=== PATIENT | male | born 1950 | race Caucasian/White ===

== ENCOUNTER 2016-09-28 14:10 | Inpatient (IN) | payer MEDICARE, OTHER ==
[2016-09-28] VITALS (7 sets, daily range): BP systolic 133–177; BP diastolic 61–78; PULSE 81–98; RESP 14–18; TEMP 97.1–98.8; O2SAT 96–99
[~2016-09-28] VITALS: Ht 177.8 cm; Wt 70.5 kg
[~2016-09-28 14:10] MED LIST: COLA100C3 PO; SPIR100T PO; TRAM50TA PO; ZOFR4TAB PO
[2016-09-28] MEDS ORDERED: SODIUM CHLORIDE 0.9% FLUSH 5 ML FLUSH IVF PRN (14:30)
[2016-09-28 15:14] LABS: AUTOMATED NEUTROPHIL # 3.8 TH/MM3 (1.8-7.7); BASOPHIL % 0.8 % (0.0-2.0); EOSINOPHIL # 0.1 TH/MM3 (0-0.4); EOSINOPHIL % 2.3 % (0.0-4.0); LYMPH % 22.1 % (9.0-44.0); LYMPHOCYTE # 1.3 TH/MM3 (1.0-4.8); MEAN CELL VOLUME 89.7 FL (80.0-100.0); MEAN CORPUSCULAR HEMOGLOBIN 29.6 PG (27.0-34.0); MEAN CORPUSCULAR HGB CONC 33.1 % (32.0-36.0); MONO % 7.6 % (0.0-8.0); NEUT % 67.2 % (16.0-70.0); PLATELET COUNT 158 TH/MM3 (150-450); RED BLOOD COUNT 2.02 MIL/MM3 (4.50-5.90); RED CELL DISTRIBUTION WIDTH 16.6 % (11.6-17.2); WHITE BLOOD COUNT 5.7 TH/MM3 (4.0-11.0)
[2016-09-28 15:23] LABS: HEMO FLAGS DIFF FINAL
[2016-09-28 15:28] LABS: APTT (PATIENT) 25.7 SEC (24.3-30.1); INTERNATIONAL NORMALIZED RATIO 1.2 RATIO; PROTHROMBIN TIME - PATIENT 13.8 SEC (9.8-11.6)
[2016-09-28 15:29] LABS: HEMATOCRIT 18.1 % (39.0-51.0)
[2016-09-28] MEDS ORDERED: SODIUM CHLOR 0.9% 250 ML INJ 250 ML IV ONE (15:30)
[2016-09-28 15:35] LABS: ALT (GPT) 37 U/L (12-78); ANION GAP 8 MEQ/L (5-15); AST (GOT) 55 U/L (15-37); BICARBONATE 20.1 MEQ/L (21.0-32.0); BLOOD UREA NITROGEN 22 MG/DL (7-18); CHLORIDE 109 MEQ/L (98-107); GLOMERULAR FILTRATION RATE 61 ML/MIN (>89); POTASSIUM 4.3 MEQ/L (3.5-5.1); SODIUM (NA) 137 MEQ/L (136-145)
[2016-09-28 15:39] LABS: ALKALINE PHOSPHATASE 73 U/L (45-117); TOTAL BILIRUBIN ADULT 1.6 MG/DL (0.2-1.0)
[2016-09-28 17:54] LABS: BLOOD, URINE NEG (NEG); COMMENT (UR) CULT NOT INDICATED; CULTURE IF INDICATED CULT NOT INDICATED; GLUCOSE,URINE NEG (NEG); KETONE, URINE NEG (NEG); MUCUS URINE FEW /lpf (OCC); NITRITE,URINE NEG (NEG); PH, URINE 6.5 (5.0-8.5); URINE COLOR YELLOW (YELLW/STRAW)
[2016-09-28] MEDS ORDERED: NALOXONE HCL 0.4 MG/ML AMP IV PRN (19:45)
[2016-09-28] MEDS ORDERED: SODIUM CHLORIDE 0.9% FLUSH 5 ML FLUSH FLUSH PRN (19:45)
--- NOTE | 2016-09-28 19:45 | PD ---
HPI Chief Complaint: Medical Clearance Time Seen by Provider: 14:25 Travel History International Travel<30 days: No Contact w/Intl Traveler<30days: No Traveled to known affect area: No History of Present Illness HPI Patient is a 66-year-old male sent by the [place] for abnormal labs. The patient states he has a history of liver disease and has had to have endoscopy before to cauterize some bleeding. Patient denies any history of varices however. Patient states she's just been feeling more fatigued and went to the [place] for lab work and they called him saying his hemoglobin was 6.8. He denies any diarrhea or dark stools blood in the stools nausea or vomiting hematemesis abdominal pain. Denies any fevers. PFSH Past Medical History Anemia: Yes Asthma: No Heart Rhythm Problems: No Cancer: No Cardiovascular Problems: Yes High Cholesterol: No Chest Pain: No Congestive Heart Failure: No COPD: No Endocrine: No Gastrointestinal Disorders: Yes GERD: Yes Genitourinary: No Hepatitis: Yes (HEPATITIS C) Hiatal Hernia: Yes Hypertension: Yes Immune Disorder: No Implanted Vascular Access Dvce: No Musculoskeletal: No Neurologic: No Psychiatric: No Reproductive: No Respiratory: Yes Sleep Apnea: No Ulcer: Yes (peptic) Past Surgical History Eye Surgery: Yes (bilateral cataracts removed) Other Surgery: Yes (endoscopy with biopsy) Social History Alcohol Use: No Tobacco Use: No Substance Use: No Allergies-Medications (Allergen,Severity, Reaction): Coded Allergies: No Known Allergies (Unverified , 09/28/16) Reported Meds & Prescriptions Reported Meds & Active Scripts Active Tramadol (Tramadol HCl) 50 Mg Tab 50 Mg PO Q6H PRN Colace (Docusate Sodium) 100 Mg Cap 100 Mg PO BID 5 Days Review of Systems Except as stated in HPI: all other systems reviewed are Neg Physical Exam Narrative GENERAL: Well-developed well-nourished no apparent distress. SKIN: Warm and dry. HEAD: Atraumatic. Normocephalic. EYES: Pupils equal and round. No scleral icterus. No injection or drainage. ENT: No nasal bleeding or discharge. Mucous membranes pink and moist. NECK: Trachea midline. No JVD. CARDIOVASCULAR: Regular rate and rhythm. No murmur appreciated. RESPIRATORY: No accessory muscle use. Clear to auscultation. Breath sounds equal bilaterally. GASTROINTESTINAL: Abdomen soft, non-tender, nondistended. Hepatic and splenic margins not palpable. MUSCULOSKELETAL: No obvious deformities. No clubbing. No cyanosis. No edema. NEUROLOGICAL: Awake and alert. No obvious cranial nerve deficits. Motor grossly within normal limits. Normal speech. PSYCHIATRIC: Appropriate mood and affect; insight and judgment normal. Data Data Last Documented VS Vital Signs Date Time Temp Pulse Resp B/P Pulse Ox O2 Delivery O2 Flow Rate FiO2 09/28/16 15:28 82 18 169/78 97 Room Air 09/28/16 15:28 98.8 Orders Complete Blood Count With Diff (09/28/16 14:30) Comprehensive Metabolic Panel (09/28/16 14:30) Lipase (09/28/16 14:30) Ammonia (09/28/16 14:30) Prothrombin Time / Inr (Pt) (09/28/16 14:30) Act Partial Throm Time (Ptt) (09/28/16 14:30) Urinalysis - C+S If Indicated (09/28/16 14:30) Type And Screen (09/28/16 14:30) Ecg Monitoring (09/28/16 14:30) Iv Access Insert/Monitor (09/28/16 14:30) Oximetry (09/28/16 14:30) Sodium Chloride 0.9% Flush (Ns Flush) (09/28/16 14:30) B-Type Natriuretic Peptide (09/28/16 14:30) Electrocardiogram (09/28/16 ) Troponin I (09/28/16 14:30) Red Blood Cells (Rbc) (09/28/16 15:30) Blood Product Administration .UPON TRANSFUSION (09/28/16 15:30) Sodium Chlor 0.9% 250 Ml Inj (Ns 250 Ml (09/28/16 15:30) Admit Order (Ed Use Only) (09/28/16 ) Labs Laboratory Tests Test 09/28/16 09/28/16 09/28/16 15:00 15:36 16:30 White Blood Count 5.7 TH/MM3 Red Blood Count 2.02 MIL/MM3 Hemoglobin 6.0 GM/DL Hematocrit 18.1 % Mean Corpuscular Volume 89.7 FL Mean Corpuscular Hemoglobin 29.6 PG Mean Corpuscular Hemoglobin 33.1 % Concent Red Cell Distribution Width 16.6 % Platelet Count 158 TH/MM3 Mean Platelet Volume 6.9 FL Neutrophils (%) (Auto) 67.2 % Lymphocytes (%) (Auto) 22.1 % Monocytes (%) (Auto) 7.6 % Eosinophils (%) (Auto) 2.3 % Basophils (%) (Auto) 0.8 % Neutrophils # (Auto) 3.8 TH/MM3 Lymphocytes # (Auto) 1.3 TH/MM3 Monocytes # (Auto) 0.4 TH/MM3 Eosinophils # (Auto) 0.1 TH/MM3 Basophils # (Auto) 0.0 TH/MM3 CBC Comment DIFF FINAL Differential Comment Prothrombin Time 13.8 SEC Prothromb Time International 1.2 RATIO Ratio Activated Partial 25.7 SEC Thromboplast Time Sodium Level 137 MEQ/L Potassium Level 4.3 MEQ/L Chloride Level 109 MEQ/L Carbon Dioxide Level 20.1 MEQ/L Anion Gap 8 MEQ/L Blood Urea Nitrogen 22 MG/DL Creatinine 1.19 MG/DL Estimat Glomerular Filtration 61 ML/MIN Rate Random Glucose 113 MG/DL Calcium Level 8.4 MG/DL Total Bilirubin 1.6 MG/DL Aspartate Amino Transf 55 U/L (AST/SGOT) Alanine Aminotransferase 37 U/L (ALT/SGPT) Alkaline Phosphatase 73 U/L Troponin I LESS THAN 0.02 NG/ML B-Type Natriuretic Peptide 56 PG/ML Total Protein 6.9 GM/DL Albumin 2.8 GM/DL Lipase 170 U/L Blood Type O POSITIVE Antibody Screen NEGATIVE Crossmatch Leukocyte-Reduced Red Blood Cells Blood Bank Comment Ammonia LESS THAN 10 MCMOL/L MDM Medical Decision Making Medical Screen Exam Complete: Yes Emergency Medical Condition: Yes Differential Diagnosis Anemia, GI bleeding, anemia of chronic disease, electrolyte abnormality, liver disease. Narrative Course Patient was roomed in the emergency department, he appears well and in no apparent distress. Repeat labs sodium level is 6.0. Patient has noticed for 2 units of RBCs. Patient appears well in no apparent distress no indication of upper GI bleeding. Fecal occult is negative and no obvious blood or melena. Patient is stable for the floor at this time. Discussed with the hospitalist for admission. Diagnosis Primary Impression: Symptomatic anemia Admitting Information Admitting Physician Requests: Admit Condition: Stable Jacob Neal MD Sep 28, 2016 19:45
[2016-09-28] MEDS ORDERED: PANTOPRAZOLE INJ 80 MG in SODIUM CHLORIDE 0.9% INJ 35 ML IV ONE (21:00)
[2016-09-28] MEDS: SODIUM CHLORIDE 0.9% FLUSH 5 ML FLUSH FLUSH SCH (21:04)
--- NOTE | 2016-09-28 21:10 | HHI.HP ---
HPI Service [facility] Primary [facility] Phys[facility] Admission Diagnosis Anemia Diagnoses: Chief Complaint: fatigue, abnormal labs Travel History International Travel<30 Days: No Contact w/Intl Traveler <30 Da: No Traveled to Known Affected Are: No History of Present Illness History taken from patient and ED physician. 66 y/o with a history of Hep C(completed Harvoni treatment 1 month ago), Cirrhosis, HTN, GERD, PUD, and anemia was sent from the [place] for a low hgb. Patient states for 2 days he has been feeling fatigued and having shortness of breath with exertion. He states he has had these episodes in the past and he has had to receive a blood transfusion and endoscopy. His last endoscopy was 8 months ago outpatient, and he states they cauterized a bleed. He denies any black or bloody stools, nausea, vomiting or chest pain. He states he completed his Hep C treatment one month ago and it is now undetectable. He also states since last admission he has Review of Systems Constitutional: COMPLAINS OF: Fatigue, DENIES: Fever, Chills, Dizziness Respiratory: COMPLAINS OF: Shortness of breath, DENIES: Cough, Sputum production Cardiovascular: DENIES: Chest pain, Palpitations Gastrointestinal: DENIES: Abdominal pain, Black stools, Bloody stools, Constipation, Diarrhea, Nausea, Vomiting Genitourinary: DENIES: Hematuria, Dysuria Musculoskeletal: DENIES: Back pain, Neck pain Integumentary: DENIES: Rash Hematologic/lymphatic: DENIES: Lymphadenopathy Immunologic/allergic: DENIES: Urticaria Neurologic: COMPLAINS OF: Localized weakness, DENIES: Headache Past Family Social History Past Medical History Hep C Cirrhosis HTN GERD PUD Anemia Past Surgical History Bilateral Cataracts Reported Medications Reported Meds & Active Scripts Active Tramadol (Tramadol HCl) 50 Mg Tab 50 Mg PO Q6H PRN Colace (Docusate Sodium) 100 Mg Cap 100 Mg PO BID 5 Days Allergies: Coded Allergies: No Known Allergies (Unverified , 09/28/16) Active Ordered Medications Current Medications Medications (Trade) Dose Ordered Sig/Brooke Route Start Time Stop Time Status Last Admin (NS 250 ml Inj) 250 ml @ 15 mls/hr ONCE ONCE IV 09/28/16 15:30 09/29/16 08:09 09/28/16 18:03 (NS Flush) 2 ml UNSCH PRN FLUSH 09/28/16 19:45 (NS Flush) 2 ml BID FLUSH 09/28/16 21:00 09/28/16 21:04 Naloxone HCl 0.4 mg 0.4 mg UNSCH PRN IV 09/28/16 19:45 (Protonix Inj/NS Inj) 100 ml @ 10 mls/hr Q10H IV 09/28/16 21:00 Physical Exam Vital Signs Vital Signs Date Time Temp Pulse Resp B/P Pulse Ox O2 Delivery O2 Flow Rate FiO2 09/28/16 21:03 88 16 133/61 98 Room Air 09/28/16 19:10 90 16 146/70 96 Room Air 09/28/16 18:35 98.8 81 18 167/76 98 Room Air 09/28/16 18:00 88 18 151/70 96 Room Air 09/28/16 18:00 98.6 88 18 151/70 96 Room Air 09/28/16 15:28 82 18 169/78 97 Room Air 09/28/16 15:28 98.8 90 18 169/78 96 Room Air 09/28/16 15:28 88 18 09/28/16 14:14 98.5 91 14 177/75 99 Room Air Physical Exam GENERAL: This is a well-nourished, well-developed patient, in no apparent distress. SKIN: No rashes, ecchymoses or lesions. Cool and dry. HEAD: Atraumatic. Normocephalic. EYES: Pupils equal round and reactive. ENT: Nose without bleeding, purulent drainage or septal hematoma. Airway patent. NECK: Trachea midline. No JVD CARDIOVASCULAR: Regular rate and rhythm without murmurs, gallops, or rubs. RESPIRATORY: Clear to auscultation. Breath sounds equal bilaterally. No wheezes , rales, or rhonchi. GASTROINTESTINAL: Abdomen soft, non-tender, nondistended. No hepato-splenomegaly , or palpable masses. No guarding. MUSCULOSKELETAL: Extremities without clubbing, cyanosis, or edema. No joint tenderness, effusion, or edema noted. No calf tenderness. NEUROLOGICAL: Awake and alert. Motor and sensory grossly within normal limits. Normal speech. Laboratory Laboratory Tests Test 09/28/16 09/28/16 09/28/16 09/28/16 15:00 15:36 16:30 17:30 White Blood Count 5.7 Red Blood Count 2.02 Hemoglobin 6.0 Hematocrit 18.1 Mean Corpuscular Volume 89.7 Mean Corpuscular Hemoglobin 29.6 Mean Corpuscular Hemoglobin 33.1 Concent Red Cell Distribution Width 16.6 Platelet Count 158 Mean Platelet Volume 6.9 Neutrophils (%) (Auto) 67.2 Lymphocytes (%) (Auto) 22.1 Monocytes (%) (Auto) 7.6 Eosinophils (%) (Auto) 2.3 Basophils (%) (Auto) 0.8 Neutrophils # (Auto) 3.8 Lymphocytes # (Auto) 1.3 Monocytes # (Auto) 0.4 Eosinophils # (Auto) 0.1 Basophils # (Auto) 0.0 CBC Comment DIFF FINAL Differential Comment Prothrombin Time 13.8 Prothromb Time International 1.2 Ratio Activated Partial 25.7 Thromboplast Time Sodium Level 137 Potassium Level 4.3 Chloride Level 109 Carbon Dioxide Level 20.1 Anion Gap 8 Blood Urea Nitrogen 22 Creatinine 1.19 Estimat Glomerular Filtration 61 Rate Random Glucose 113 Calcium Level 8.4 Total Bilirubin 1.6 Aspartate Amino Transf 55 (AST/SGOT) Alanine Aminotransferase 37 (ALT/SGPT) Alkaline Phosphatase 73 Troponin I LESS THAN 0.02 B-Type Natriuretic Peptide 56 Total Protein 6.9 Albumin 2.8 Lipase 170 Blood Type O POSITIVE Antibody Screen NEGATIVE Crossmatch Leukocyte-Reduced Red Blood Cells Blood Bank Comment Ammonia LESS THAN 10 Urine Color YELLOW Urine Turbidity CLEAR Urine pH 6.5 Urine Specific [place] 1.017 Urine Protein NEG Urine Glucose (UA) NEG Urine Ketones NEG Urine Occult Blood NEG Urine Nitrite NEG Urine Bilirubin NEG Urine Urobilinogen LESS THAN 2.0 Urine Leukocyte Esterase NEG Urine RBC LESS THAN 1 Urine WBC LESS THAN 1 Urine Mucus FEW Microscopic Urinalysis Comment CULT NOT INDICATED Result Diagram: 09/28/16 1500 09/28/16 1500 Assessment and Plan Problem List: (1) GI bleed ICD Code: K92.2 Status: Acute Assessment and Plan 66 y/o with a history of Hep C(completed treatment 1 month ago), Cirrhosis, HTN , GERD, PUD, and anemia presented with: GI Bleed Labs: Hgb 6.0 -Transfuse 2 units of PRBCs -Consult GI for recommendations -Protonix drip -Trend CBC Hypertension -Monitor vitals -Will order PRNs if needed DVT prophylaxis: SCDs Written by Sunita HERMOSILLO, acting as scribe for Dr. Boggs on 09/28/16 at 2110. The documentation accurately reflects the work performed [id number] and decisions made by me and the physician Dr Boggs on 09/28/16. The documentation accurately reflects the work performed [id number] by me on at 2110 Discussed Condition With Patient, RN and ED physician Physician Certification 2 Midnight Certification Type: Admission for Inpatient Services Order for Inpatient Services The services are ordered in accordance with Medicare regulations or non- Medicare payer requirements, as applicable. In the case of services not specified as inpatient-only, they are appropriately provided as inpatient services in accordance with the 2-midnight benchmark. Estimated LOS (days): 3 days is the estimated time the patient will need to remain in the hospital, assuming treatment plan goals are met and no additional complications. Post-Hospital Plan: [place] Sunita Disla Sep 28, 2016 21:10 Farrukh Bgogs MD Sep 29, 2016 08:27
[2016-09-28] MEDS: PANTOPRAZOLE INJ 80 MG in SODIUM CHLORIDE 0.9% INJ 100 ML IV SCH (23:09)
[2016-09-29 04:00] VITALS: BP 114/85; PULSE 80; RESP 18; TEMP 97.2; O2SAT 99
[2016-09-29 08:00] VITALS: BP 131/66; PULSE 80; RESP 18; TEMP 98.3; O2SAT 100
[2016-09-29 08:15] LABS: BASOPHIL # 0.1 TH/MM3 (0-0.2); BASOPHIL % 1.2 % (0.0-2.0); EOSINOPHIL # 0.2 TH/MM3 (0-0.4); EOSINOPHIL % 4.1 % (0.0-4.0); HEMATOCRIT 23.9 % (39.0-51.0); HEMO FLAGS DIFF FINAL; LYMPH % 26.4 % (9.0-44.0); LYMPHOCYTE # 1.4 TH/MM3 (1.0-4.8); MEAN CELL VOLUME 87.3 FL (80.0-100.0); MEAN CORPUSCULAR HEMOGLOBIN 29.6 PG (27.0-34.0); MEAN CORPUSCULAR HGB CONC 33.9 % (32.0-36.0); MONO % 11.5 % (0.0-8.0); NEUT % 56.8 % (16.0-70.0); PLATELET COUNT 127 TH/MM3 (150-450); RED BLOOD COUNT 2.74 MIL/MM3 (4.50-5.90); RED CELL DISTRIBUTION WIDTH 15.4 % (11.6-17.2); WHITE BLOOD COUNT 5.2 TH/MM3 (4.0-11.0)
--- NOTE | 2016-09-29 08:31 | PD.CONS ---
HPI History of Present Illness This is a 66 year old male patient with a history of liver cirrhosis and who recently completed a course of Harvoni for his chronic hepatitis C about 1 month ago (states he cleared the virus) and was sent from the [place] for evaluation of low hemoglobin. He has a history of chronic anemia and was evaluated by our service with EGD/colonoscopy (11/28/15) revealed gastritis in the gastric antrum, retroflexed views revealed no abnormalities, mild diverticulosis, retroflex views revealed no abnormalities, and no abnormalities of the rectum. It was recommended that he have a repeat colonoscopy in 5 years. Pathology revealed gastric antral mucosal biopsy with histopathologic features consistent with chemical gastropathy as may be seen with bile reflux, nonsteroidal anti- inflammatory drugs or other drug-induced disease negative for intestinal metaplasia and dysplasia, Nilda stain negative for Helicobacter. He was also seen by Dr. Hansen in the past and it was suspected that his anemia was related to conditions outside of the bone marrow given that his bone marrow biopsy was normal. It was suspected that his significant hypersplenism was preventing his hemoglobin from increasing significantly. He reports that more recently, he has been evaluated at the [place]. He did have some GI bleeding back in March. He was hospitalized at the [facility] in [place] at that time and underwent an EGD and had a "lesion that had to be cauterized." He reports that since that time, he has been getting monthly CBC's and that these have been running 9.8-10.0. This was last checked about 3 weeks ago and was 9.8. He reports that for several days, he has been having shortness of breath with minimal exertion, generalized weakness. He denies any noticeable blood loss. He denies any nausea, vomiting, reflux, heartburn, abdominal pain, diarrhea, melena, or hematochezia. He does report that he has been having constipation since starting Harvoni and that this is controlled with colace and prune juice. He was diagnosed with liver cirrhosis and hepatitis C about 1 year ago and quit drinking 7 months ago. (Patrica Mack) PFSH Past Medical History Chronic hepatitis C, S/P Tx with Harvoni Liver Cirrhosis HTN GERD PUD Chronic Anemia Upper GI bleeding in March Gastritis Diverticulosis Hypersplenism Chronic thrombocytopenia Past Surgical History Bilateral Cataracts Left knee surgery Multiple EGD/Colonoscopy Bone marrow biopsy (Patrica Mack) Coded Allergies: No Known Allergies (Unverified , 09/28/16) Medications Allergies Coded Allergies Type Severity Reaction Last Updated Verified No Known Allergies 09/28/16 No Active Scripts Medications Dose Route/Sig Days Date Category Tramadol (Tramadol HCl) 50 Mg Tab 50 Mg PO Q6H PRN 08/18/16 Rx Colace (Docusate Sodium) 100 Mg Cap 100 Mg PO BID 5 08/18/16 Rx Family History Mother from Alzheimer's late in life Father from Parkinson's in his 80s Social History No tobacco. Last had ETOH 7 months ago. (Patrica Mack) Review of Systems Constitutional: COMPLAINS OF: Fatigue, DENIES: Weight loss, Change in appetite Respiratory: COMPLAINS OF: Shortness of breath, DENIES: Cough Cardiovascular: DENIES: Chest pain Gastrointestinal: COMPLAINS OF: Constipation, DENIES: Abdominal pain, Black stools, Bloody stools, Diarrhea, Nausea, Vomiting, Anorexia, Swelling of Abdomen , Heartburn Integumentary: DENIES: Abnormal pigmentation Hematologic/lymphatic: COMPLAINS OF: Bruising Neurologic: DENIES: Headache Psychiatric: DENIES: Confusion (Patrica Mack) GI Exam Vitals I&O Vital Signs Date Time Temp Pulse Resp B/P Pulse Ox O2 Delivery O2 Flow Rate FiO2 09/29/16 04:00 97.2 80 18 114/85 99 09/28/16 22:00 97.1 98 18 147/72 99 09/28/16 21:03 88 16 133/61 98 Room Air 09/28/16 19:10 90 16 146/70 96 Room Air 09/28/16 18:35 98.8 81 18 167/76 98 Room Air 09/28/16 18:00 88 18 151/70 96 Room Air 09/28/16 18:00 98.6 88 18 151/70 96 Room Air 09/28/16 15:28 82 18 169/78 97 Room Air 09/28/16 15:28 98.8 90 18 169/78 96 Room Air 09/28/16 15:28 88 18 09/28/16 14:14 98.5 91 14 177/75 99 Room Air I/O 09/28/16 09/28/16 09/28/16 09/29/16 09/29/16 2/1/17 07:00 15:00 23:00 07:00 15:00 23:00 Output Total 400 ml Balance -400 ml Output Urine Total 400 ml # Voids 1 Laboratory Test 09/28/16 09/28/16 09/28/16 09/28/16 15:00 15:36 16:30 17:30 White Blood Count 5.7 TH/MM3 Red Blood Count 2.02 MIL/MM3 Hemoglobin 6.0 GM/DL Hematocrit 18.1 % Mean Corpuscular Volume 89.7 FL Mean Corpuscular Hemoglobin 29.6 PG Mean Corpuscular Hemoglobin 33.1 % Concent Red Cell Distribution Width 16.6 % Platelet Count 158 TH/MM3 Mean Platelet Volume 6.9 FL Neutrophils (%) (Auto) 67.2 % Lymphocytes (%) (Auto) 22.1 % Monocytes (%) (Auto) 7.6 % Eosinophils (%) (Auto) 2.3 % Basophils (%) (Auto) 0.8 % Neutrophils # (Auto) 3.8 TH/MM3 Lymphocytes # (Auto) 1.3 TH/MM3 Monocytes # (Auto) 0.4 TH/MM3 Eosinophils # (Auto) 0.1 TH/MM3 Basophils # (Auto) 0.0 TH/MM3 CBC Comment DIFF FINAL Differential Comment Prothrombin Time 13.8 SEC Prothromb Time International 1.2 RATIO Ratio Activated Partial 25.7 SEC Thromboplast Time Sodium Level 137 MEQ/L Potassium Level 4.3 MEQ/L Chloride Level 109 MEQ/L Carbon Dioxide Level 20.1 MEQ/L Anion Gap 8 MEQ/L Blood Urea Nitrogen 22 MG/DL Creatinine 1.19 MG/DL Estimat Glomerular Filtration 61 ML/MIN Rate Random Glucose 113 MG/DL Calcium Level 8.4 MG/DL Total Bilirubin 1.6 MG/DL Aspartate Amino Transf 55 U/L (AST/SGOT) Alanine Aminotransferase 37 U/L (ALT/SGPT) Alkaline Phosphatase 73 U/L Troponin I LESS THAN 0.02 NG/ML B-Type Natriuretic Peptide 56 PG/ML Total Protein 6.9 GM/DL Albumin 2.8 GM/DL Lipase 170 U/L Blood Type O POSITIVE Antibody Screen NEGATIVE Crossmatch Leukocyte-Reduced Red Blood Cells Blood Bank Comment Ammonia LESS THAN 10 MCMOL/L Urine Color YELLOW Urine Turbidity CLEAR Urine pH 6.5 Urine Specific [place] 1.017 Urine Protein NEG mg/dL Urine Glucose (UA) NEG mg/dL Urine Ketones NEG mg/dL Urine Occult Blood NEG Urine Nitrite NEG Urine Bilirubin NEG Urine Urobilinogen LESS THAN 2.0 MG/DL Urine Leukocyte Esterase NEG Urine RBC LESS THAN 1 /hpf Urine WBC LESS THAN 1 /hpf Urine Mucus FEW /lpf Microscopic Urinalysis Comment CULT NOT INDICATED Physical Examination HEENT: Normocephalic; atraumatic; no jaundice. CHEST: CTA CARDIAC: RRR ABDOMEN: Soft, nondistended, nontender; hepatosplenomegaly; bowel sounds are present in all four quadrants. Small amount ascites EXTREMITIES: No clubbing, cyanosis, or edema. SKIN: Normal; no rash; no jaundice. TELECOMMUNICATION EQUIPMENT REPAIRER: No focal deficits; alert and oriented times three. (Patrica Mack) Assessment and Plan Plan ASSESSMENT: - Severe anemia. Pt has liver cirrhosis (dx 1 year ago), hypersplenism, chronic thrombocytopenia. He was evaluated for anemia with EGD/colonoscopy (11/28/15) revealed gastritis in the gastric antrum, retroflexed views revealed no abnormalities, mild diverticulosis, retroflex views revealed no abnormalities, and no abnormalities of the rectum. It was recommended that he have a repeat colonoscopy in 5 years. Pathology revealed gastric antral mucosal biopsy with histopathologic features consistent with chemical gastropathy as may be seen with bile reflux, nonsteroidal anti-inflammatory drugs or other drug -induced disease negative for intestinal metaplasia and dysplasia, Nilda stain negative for Helicobacter. He was also seen by Dr. Hansen in the past and it was suspected that his anemia was related to conditions outside of the bone marrow given that his bone marrow biopsy was normal. It was suspected that his significant hypersplenism was preventing his hemoglobin from increasing significantly. He was hospitalized in March at [facility] and had EGD with control of bleeding ("lesion that had to be cauterized"). H/H have remained stable since that time 9.8 3 weeks ago. He has 2 day hx of SOB, Fatigue and found to have severe anemia and sent to the ER for further evaluation. No obvious GI Bleeding. Occasional NSAID use. HH 6.0, 18.1, s/p 2 units prbc and now 8.1/23.9. Protonix Gtt. NPO. - Liver cirrhosis secondary to HCV/ETOH, Dx 1 year ago. Quit drinking 7 months ago. MELD 12. Followed at [place]. LFT stable. - Chronic thrombocytopenia, likely secondary to hypersplenism. - Chronic HCV, S/P Tx with [facility]. Completed September 02, states that he cleared the virus. PLAN: - Plan for egd with possible band ligation today - Obtain consents - NPO - Protonix Gtt - Monitor HH - Transfuse as necessary - Supportive care - Further recommendations to follow based on results of above - Pt seen and examined by Dr. Linder and myself and this note is written on his behalf (Patrica Mack) Physician Comments Patient seen and examined Agree with above Continue with current supportive care Monitor labs EGD later today (Luis Fernando Linder MD) Patrica Mack Sep 29, 2016 08:31 Luis Fernando Linder MD Sep 29, 2016 10:48
[2016-09-29 08:48] LABS: BICARBONATE 17.2 MEQ/L (21.0-32.0); POTASSIUM 3.9 MEQ/L (3.5-5.1)
[2016-09-29] MEDS: SODIUM CHLORIDE 0.9% FLUSH 5 ML FLUSH FLUSH SCH ×2 (09:00→19:44)
[2016-09-29] MEDS: PANTOPRAZOLE INJ 80 MG in SODIUM CHLORIDE 0.9% INJ 100 ML IV SCH (10:25)
[2016-09-29 11:30] VITALS: BP 133/74; PULSE 84; RESP 16; TEMP 97.5; O2SAT 98
--- NOTE | 2016-09-29 12:02 | HHI.PR ---
Subjective Remarks The patient was sitting up in a chair. He was anticipating the procedure. He said he was hungry. He reports no further bleeding. He says he is prone to constipation. Family at bedside. Discussed with nursing. Objective Vitals Vital Signs Date Time Temp Pulse Resp B/P Pulse Ox O2 Delivery O2 Flow Rate FiO2 09/29/16 08:00 98.3 80 18 131/66 100 09/29/16 04:00 97.2 80 18 114/85 99 09/28/16 22:00 97.1 98 18 147/72 99 09/28/16 21:03 88 16 133/61 98 Room Air 09/28/16 19:10 90 16 146/70 96 Room Air 09/28/16 18:35 98.8 81 18 167/76 98 Room Air 09/28/16 18:00 88 18 151/70 96 Room Air 09/28/16 18:00 98.6 88 18 151/70 96 Room Air 09/28/16 15:28 82 18 169/78 97 Room Air 09/28/16 15:28 98.8 90 18 169/78 96 Room Air 09/28/16 15:28 88 18 09/28/16 14:14 98.5 91 14 177/75 99 Room Air I/O 09/28/16 09/28/16 09/28/16 09/29/16 09/29/16 09/29/16 07:00 15:00 23:00 07:00 15:00 23:00 Output Total 400 ml Balance -400 ml Output Urine Total 400 ml # Voids 1 Result Diagram: 09/29/16 0716 09/29/16 0716 Objective Remarks GENERAL: This is a well-nourished, well-developed patient, in no apparent distress. SKIN: No rashes, ecchymoses or lesions. Cool and dry. HEAD: Atraumatic. Normocephalic. EYES: Pupils equal round and reactive. ENT: Nose without bleeding, purulent drainage or septal hematoma. Airway patent. NECK: Trachea midline. No JVD CARDIOVASCULAR: Regular rate and rhythm. Grade 1 systolic murmur appreciated. RESPIRATORY: Clear to auscultation. Breath sounds equal bilaterally. No wheezes , rales, or rhonchi. GASTROINTESTINAL: Abdomen soft, non-tender, nondistended. No guarding. Abdominal hernia noted. MUSCULOSKELETAL: Extremities without clubbing, cyanosis, or edema. No joint tenderness, effusion, or edema noted. No calf tenderness. NEUROLOGICAL: Awake and alert. Motor and sensory grossly within normal limits. Normal speech. PSYCH: Mood and affect appropriate. Medications and IVs Current Medications Medications (Trade) Dose Ordered Sig/Brooke Route Start Time Stop Time Status Last Admin (NS Flush) 2 ml UNSCH PRN FLUSH 09/28/16 19:45 (NS Flush) 2 ml BID FLUSH 09/28/16 21:00 09/28/16 21:04 Naloxone HCl 0.4 mg 0.4 mg UNSCH PRN IV 09/28/16 19:45 (Protonix Inj/NS Inj) 100 ml @ 10 mls/hr Q10H IV 09/28/16 21:00 09/29/16 10:25 A/P Problem List: (1) GI bleed ICD Code: K92.2 Status: Acute Assessment and Plan GI Bleed The pt has a history of cauterized bowel for a GIB last year. He takes ibuprofen for back pain. Hemoglobin improved with 2 units. GI consult appreciated. - endoscopy per GI. - Protonix drip. - Trend CBC and transfuse as needed. - instructed pt not to take NSAIDs. Hypertension Well controlled at this time. - Monitor vitals. - Will order PRNs if needed. HCV S/p treatment. Pt has cirrhosis. - outpt follow-up. Thrombocytopenia Likely s/t liver disease. - follow CBC. Chronic back pain The pt takes ibuprofen regularly. - d/c ibuprofen. - Tylenol, Tramadol and muscle relaxers as needed. DVT prophylaxis: SCDs Discharge Planning Awaiting endoscopy. Rio Jaeger DO Sep 29, 2016 12:02
[2016-09-29 12:31] VITALS: BP 131/66; PULSE 80; RESP 18; TEMP 98.3; O2SAT 100
[2016-09-29] MEDS ORDERED: PROPOFOL 200 MG/20 ML AMP IV ONE (13:45)
--- NOTE | 2016-09-29 13:56 | PD.PROCEDR ---
GI Procedure REFERRING PHYSICIAN Luciano PROCEDURE PERFORMED EGD with biopsy INDICATION FOR PROCEDURE Anemia history of cirrhosis PROCEDURE: The procedure, risks and benefits were discussed with Mr. Beckford and informed consent was obtained. Anesthesia sedated him with Diprivan. He was placed in the left lateral decubitus position. EGD: The Pentax videoscope was introduced through the oropharynx and advanced to the second portion of the duodenum under direct visualization. Retroflexion was performed in the stomach. FINDINGS: The esophagus there was streaky erythema in the distal esophagus consistent with reflux esophagitis this is mild I don't see any obvious varices at this point no biopsies were taken The stomach there was an area in the antrum but was slightly edematous with some erythema but no obvious ulcerations or erosions the rest of the gastric mucosa was unremarkable antral biopsies were taken for further evaluation The duodenum there was a small superficial ulcer in the duodenal bulb that was clean based with no visible vessel with patchy erythema in the duodenal bulb and the duodenal sweep biopsies were taken from this area the rest of the duodenum was normal ESTIMATED BLOOD LOSS: None SPECIMENS REMOVED: Antral and duodenal biopsies COMPLICATIONS: None IMPRESSION: Reflux esophagitis Gastritis Duodenal ulcer with duodenitis PLAN: Await biopsy Avoid NSAIDs and aspirin PPI Advance diet If all is stable patient may be discharged in a.. Luis Fernando Linder MD Sep 29, 2016 13:56
--- NOTE | 2016-09-29 15:36 | EKG ---
Date Performed: 09/28/2016 Time Performed: 15:42:35 PTAGE: 66 years EKG: SUPRAVENTRICULAR RHYTHM Compared to previous tracing, previously reported Left bundle branc h block is no longer present Clinical correlation is recommended ATYPICAL ECG PREVIOUS TRACING : 11/27/2015 17.39 DOCTOR: Olive Mora Interpretating Date/Time 09/29/2016 15:35:00
[2016-09-29] MEDS ORDERED: TEMAZEPAM 15 MG CAP PO PRN (16:45)
[2016-09-29 18:37] LABS: HEMATOCRIT 25.1 % (39.0-51.0); REVIEW FLAG FINAL
[2016-09-29] MEDS: DOCUSATE SODIUM 100 MG CAP PO SCH (19:43)
[2016-09-29 20:00] VITALS: BP 124/62; PULSE 84; RESP 18; TEMP 97.7; O2SAT 99
[2016-09-29] MEDS: MORPHINE SULFATE 4 MG/ML INJ IV PUSH PRN (20:06)
[2016-09-30] VITALS: BP 98/51; PULSE 80; RESP 16; TEMP 97.7; O2SAT 96
[2016-09-30 01:34] LABS: REVIEW FLAG FINAL
[2016-09-30 01:35] LABS: HEMATOCRIT 20.6 % (39.0-51.0)
[2016-09-30] MEDS: PANTOPRAZOLE INJ 80 MG in SODIUM CHLORIDE 0.9% INJ 100 ML IV SCH ×2 (03:42→11:19)
[2016-09-30 04:00] VITALS: BP_SYST 102; BP_SYST 157; BP_DIAS 54; BP_DIAS 91; PULSE 80; PULSE 81; RESP 18; TEMP 97.2; O2SAT 95; O2SAT 96
--- NOTE | 2016-09-30 04:17 | HHI.PR ---
Addendum to Inpatient Note Addendum Reason: Additional Documentation Additional Information Patient's hemoglobin hematocrit dropped on repeat. Patient is known to me from his hospital admission days. He did tell me at that time that he [facility] which showed the site of bleeding and he needed cauterization at that time. I suspect that this patient is still bleeding although it is somewhat of a slow bleed. Our latest EGD report reviewed. Continue pantoprazole IV drip. Will transfuse patient 2 units PRBC now. Farrukh Boggs MD Sep 30, 2016 04:17
[2016-09-30 05:59] LABS: AUTOMATED NEUTROPHIL # 2.6 TH/MM3 (1.8-7.7); BASOPHIL % 0.8 % (0.0-2.0); EOSINOPHIL # 0.2 TH/MM3 (0-0.4); EOSINOPHIL % 4.6 % (0.0-4.0); LYMPH % 33.3 % (9.0-44.0); LYMPHOCYTE # 1.7 TH/MM3 (1.0-4.8); MEAN CORPUSCULAR HEMOGLOBIN 29.8 PG (27.0-34.0); MEAN CORPUSCULAR HGB CONC 33.9 % (32.0-36.0); MONO % 10.6 % (0.0-8.0); NEUT % 50.7 % (16.0-70.0); PLATELET COUNT 113 TH/MM3 (150-450); RED BLOOD COUNT 2.37 MIL/MM3 (4.50-5.90); RED CELL DISTRIBUTION WIDTH 15.7 % (11.6-17.2); WHITE BLOOD COUNT 5.1 TH/MM3 (4.0-11.0)
[2016-09-30] MEDS: MORPHINE SULFATE 4 MG/ML INJ IV PUSH PRN (06:01)
[2016-09-30 06:12] LABS: BICARBONATE 19.9 MEQ/L (21.0-32.0); POTASSIUM 3.9 MEQ/L (3.5-5.1)
[2016-09-30 06:35] LABS: HEMO FLAGS DIFF FINAL
[2016-09-30 06:39] LABS: HEMATOCRIT 20.9 % (39.0-51.0)
[2016-09-30 08:00] VITALS: BP 118/66; PULSE 82; RESP 16; TEMP 97; O2SAT 97
[2016-09-30 08:32] VITALS: BP 118/66; PULSE 82; RESP 18; TEMP 97; O2SAT 97
[2016-09-30] MEDS: SODIUM CHLORIDE 0.9% FLUSH 5 ML FLUSH FLUSH SCH (08:42)
[2016-09-30] MEDS: DOCUSATE SODIUM 100 MG CAP PO SCH (08:42)
[2016-09-30] MEDS ORDERED: SENNOSIDES 8.6 MG TAB PO SCH (09:00)
[2016-09-30 09:19] VITALS: O2SAT 97
--- NOTE | 2016-09-30 11:58 | HHI.PR ---
Subjective Remarks The pt wants to go home. He said he has seen no evidence of bleeding. He says he will stop taking ibuprofen. He was seen by the GI team. Discussed with nursing. Objective Vitals Vital Signs Date Time Temp Pulse Resp B/P Pulse Ox O2 Delivery O2 Flow Rate FiO2 09/30/16 09:19 97 21 09/30/16 08:32 97.0 82 18 118/66 97 09/30/16 08:00 97.0 82 16 118/66 97 09/30/16 04:00 97.2 81 18 102/54 96 09/30/16 00:00 97.7 80 16 98/51 96 09/29/16 20:00 97.7 84 18 124/62 99 09/29/16 17:50 21 09/29/16 14:15 80 16 146/71 99 09/29/16 14:06 82 16 142/67 99 09/29/16 13:56 98.4 90 16 117/65 98 09/29/16 12:31 98.3 80 18 131/66 100 I/O 09/29/16 09/29/16 09/29/16 09/30/16 09/30/16 09/30/16 07:00 15:00 23:00 07:00 15:00 23:00 Intake Total 1040 ml 400 ml Output Total 400 ml 700 ml 500 ml 300 ml Balance -400 ml 340 ml -500 ml 100 ml Intake Oral 240 ml 400 ml Other 800 ml Output Urine Total 400 ml 700 ml 500 ml 300 ml Result Diagram: 09/30/1620 09/30/16 0520 Objective Remarks GENERAL: This is a well-nourished, well-developed patient, in no apparent distress. SKIN: No rashes, ecchymoses or lesions. Cool and dry. HEAD: Atraumatic. Normocephalic. EYES: Pupils equal round and reactive. ENT: Nose without bleeding, purulent drainage or septal hematoma. Airway patent. NECK: Trachea midline. No JVD CARDIOVASCULAR: Regular rate and rhythm. Grade 1 systolic murmur appreciated. RESPIRATORY: Clear to auscultation. Breath sounds equal bilaterally. No wheezes , rales, or rhonchi. GASTROINTESTINAL: Abdomen soft, ,mildly tender, nondistended. No guarding. Abdominal hernia noted. MUSCULOSKELETAL: Extremities without clubbing, cyanosis, or edema. No joint tenderness, effusion, or edema noted. NEUROLOGICAL: Awake and alert. Motor and sensory grossly within normal limits. Normal speech. PSYCH: Mildly agitated. Procedures EGD Medications and IVs Current Medications Medications (Trade) Dose Ordered Sig/Brooke Route Start Time Stop Time Status Last Admin (NS Flush) 2 ml UNSCH PRN FLUSH 09/28/16 19:45 (NS Flush) 2 ml BID FLUSH 09/28/16 21:00 09/28/16 21:04 Naloxone HCl 0.4 mg 0.4 mg UNSCH PRN IV 09/28/16 19:45 (Protonix Inj/NS Inj) 100 ml @ 10 mls/hr Q10H IV 09/28/16 21:00 09/30/16 11:19 (Colace) 100 mg BID PO 09/29/16 21:00 09/30/16 08:42 (Senokot) 17.2 mg DAILY PO 09/30/16 09:00 09/30/16 08:42 (Restoril) 15 mg HS PRN PO 09/29/16 16:45 09/29/16 19:43 (Morphine Inj) 2 mg Q3H PRN IV PUSH 09/29/16 20:00 09/30/16 06:01 A/P Problem List: (1) GI bleed ICD Code: K92.2 Status: Acute Assessment and Plan GI Bleed The pt has a history of cauterized bowel for a GIB last year. He takes ibuprofen for back pain. Hemoglobin improved with 2 units. GI consult appreciated. EGD with reflux esophagitis, gastritis, duodenal ulcer with duodenitis. Hemoglobin decreased 2/2. - Protonix drip. - Trend CBC and transfuse as needed. 2 units ordered 2/. - instructed pt not to take NSAIDs. - follow up with GI. Hypertension Well controlled at this time. - Monitor vitals. - Will order PRNs if needed. HCV S/p treatment. Pt has cirrhosis. - outpt follow-up. Thrombocytopenia Likely s/t liver disease. - follow CBC. Chronic back pain The pt takes ibuprofen regularly. - d/c ibuprofen. - Tylenol, Tramadol and muscle relaxers as needed. DVT prophylaxis: SCDs Discharge Planning Possible d/c following transfusion if GI clears pt. Rio Jaeger DO Sep 30, 2016 11:58
[2016-09-30] MEDS ORDERED: PANT40TA3 PO (11:59)
[2016-09-30] MEDS ORDERED: TRAM50TA PO (11:59)
[2016-09-30 12:00] VITALS: BP 111/68; PULSE 86; RESP 16; TEMP 98.6; O2SAT 96
--- NOTE | 2016-09-30 12:03 | HHI.DCPOC ---
Discharge Care Plan Diagnosis: (1) GI bleed (2) Symptomatic anemia (3) GERD (gastroesophageal reflux disease) (4) Cirrhosis Goals to Promote Your Health * To prevent worsening of your condition and complications * To maintain your health at the optimal level Directions to Meet Your Goals Take your medications as prescribed Follow your dietary instruction Follow activity as directed Keep your appointments as scheduled Take your immunizations and boosters as scheduled If your symptoms worsen call your PCP, if no PCP go to Urgent Care Center or Emergency Room Smoking is Dangerous to Your Health. Avoid second hand smoke Call the 24-hour hour crisis hotline for domestic abuse at Rio Jaeger DO Sep 30, 2016 12:03
--- NOTE | 2016-09-30 12:14 | HHI.GIFU ---
Subjective Remarks Resting in bed. No bleeding. Tolerating diet. Really would like to go home and fu at [facility] as scheduled. States he has been anemic and feels that he can sit at home and fu with hematology. No n/v. No abdominal pain. No melena/ hematochezia. D/W patient importance of no NSAIDS and he reports that he will never take them again. (Patrica Mack) Objective Vitals I&O Vital Signs Date Time Temp Pulse Resp B/P Pulse Ox O2 Delivery O2 Flow Rate FiO2 09/30/16 09:19 97 21 09/30/16 08:32 97.0 82 18 118/66 97 09/30/16 08:00 97.0 82 16 118/66 97 09/30/16 04:00 97.2 81 18 102/54 96 09/30/16 00:00 97.7 80 16 98/51 96 09/29/16 20:00 97.7 84 18 124/62 99 09/29/16 17:50 21 09/29/16 14:15 80 16 146/71 99 09/29/16 14:06 82 16 142/67 99 09/29/16 13:56 98.4 90 16 117/65 98 09/29/16 12:31 98.3 80 18 131/66 100 I/O 09/29/16 09/29/16 09/29/16 09/30/16 09/30/16 09/30/16 07:00 15:00 23:00 07:00 15:00 23:00 Intake Total 1040 ml 400 ml Output Total 400 ml 700 ml 500 ml 300 ml Balance -400 ml 340 ml -500 ml 100 ml Intake Oral 240 ml 400 ml Other 800 ml Output Urine Total 400 ml 700 ml 500 ml 300 ml Laboratory Laboratory Tests Test 09/29/16 09/30/16 09/30/16 09/30/16 18:15 00:38 04:15 05:20 Hemoglobin 8.4 7.1 7.1 Hematocrit 25.1 20.6 20.9 Blood Type O POSITIVE Antibody Screen NEGATIVE Crossmatch Leukocyte-Reduced Red Blood Cells Blood Bank Comment White Blood Count 5.1 Red Blood Count 2.37 Mean Corpuscular Volume 88.0 Mean Corpuscular Hemoglobin 29.8 Mean Corpuscular Hemoglobin 33.9 Concent Red Cell Distribution Width 15.7 Platelet Count 113 Mean Platelet Volume 7.0 Neutrophils (%) (Auto) 50.7 Lymphocytes (%) (Auto) 33.3 Monocytes (%) (Auto) 10.6 Eosinophils (%) (Auto) 4.6 Basophils (%) (Auto) 0.8 Neutrophils # (Auto) 2.6 Lymphocytes # (Auto) 1.7 Monocytes # (Auto) 0.5 Eosinophils # (Auto) 0.2 Basophils # (Auto) 0.0 CBC Comment DIFF FINAL Differential Comment Sodium Level 138 Potassium Level 3.9 Chloride Level 109 Carbon Dioxide Level 19.9 Anion Gap 9 Blood Urea Nitrogen 16 Creatinine 1.00 Estimat Glomerular Filtration 75 Rate Random Glucose 90 Calcium Level 7.7 Physical Exam HEENT: Normocephalic; atraumatic; no jaundice. T CHEST: CTA CARDIAC: RRR. ABDOMEN: Soft, nondistended, nontender; no hepatosplenomegaly; bowel sounds are present in all four quadrants. EXTREMITIES: No clubbing, cyanosis, or edema. SKIN: Normal; no rash; no jaundice. SENIOR DATA ARCHITECT: No focal deficits; alert and oriented times three. (Patrica Mack) Assessment and Plan Plan ASSESSMENT: - Severe anemia. Pt has liver cirrhosis (dx 1 year ago), hypersplenism, chronic thrombocytopenia. He was evaluated for anemia with EGD/colonoscopy (11/28/15) revealed gastritis in the gastric antrum, retroflexed views revealed no abnormalities, mild diverticulosis, retroflex views revealed no abnormalities, and no abnormalities of the rectum. It was recommended that he have a repeat colonoscopy in 5 years. Pathology revealed gastric antral mucosal biopsy with histopathologic features consistent with chemical gastropathy as may be seen with bile reflux, nonsteroidal anti-inflammatory drugs or other drug -induced disease negative for intestinal metaplasia and dysplasia, Nilda stain negative for Helicobacter. He was also seen by Dr. Hansen in the past and it was suspected that his anemia was related to conditions outside of the bone marrow given that his bone marrow biopsy was normal. It was suspected that his significant hypersplenism was preventing his hemoglobin from increasing significantly. He was hospitalized in March at [facility] and had EGD with control of bleeding ("lesion that had to be cauterized"). S/P EGD (09/29/16)- --> reflux esophagitis, gastritis, duodenal ulcer with duodenitis. Pathology pending. Change Protonix Gtt to po with bid dosing. No NSAIDs. D/ W patient, verbalizes understanding. He is not having any obvious bleeding although H/H was 7.1/20.9 and he is getting transfused. 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 Quit drinking 7 months ago. MELD 12. Followed at [facility]. LFT stable. - Chronic thrombocytopenia, likely secondary to hypersplenism. - Chronic HCV, S/P Tx with [facility]. Completed September 02, states that he cleared the virus. PLAN: - JIMI - D/C Protonix Gtt - Protonix 40mg po BID - No NSAIDS, d/w patient - FU GI/Hematology as scheduled on 10/14 - Return to ER for sob, bleeding - Okay to d/c home later today if stable - Pt seen and examined by Dr. Linder and myself and this note is written on his behalf (Patrica Mack) Physician Comments Patient seen and examined Agree with above Continue with current supportive care Monitor labs Okay for DC from a GI standpoint (Luis Fernando Linder MD) Patrica Mack Sep 30, 2016 12:14 Luis Fernando Linder MD Sep 30, 2016 20:58
[2016-09-30 14:42] LABS: HEMATOCRIT 25.3 % (39.0-51.0); MEAN CELL VOLUME 87.5 FL (80.0-100.0); MEAN CORPUSCULAR HGB CONC 34.2 % (32.0-36.0); PLATELET COUNT 105 TH/MM3 (150-450); RED BLOOD COUNT 2.89 MIL/MM3 (4.50-5.90); RED CELL DISTRIBUTION WIDTH 15.3 % (11.6-17.2); REVIEW FLAG FINAL; WHITE BLOOD COUNT 4.7 TH/MM3 (4.0-11.0)
== END 2016-09-30 15:46 | disposition home or self-care (01) | DRG 812 ==
LOC: NEPE 14:10 → NEDA 17:21 → HOCA 21:53
PROVIDERS: ADMIT Hospitalist; ATTEND Hospitalist
PROC: 30233N1 Transfusion of Nonautologous Red Blood Cells into Peripheral Vein, Percutaneous Approach (ICD-10-PCS; principal; 2016-09-28)
PROC: 0DB98ZX Excision of Duodenum, Via Natural or Artificial Opening Endoscopic, Diagnostic (ICD-10-PCS; 2016-09-29)
PROC: 0DB68ZX Excision of Stomach, Via Natural or Artificial Opening Endoscopic, Diagnostic (ICD-10-PCS; 2016-09-29)
DX: D64.9 Anemia, unspecified (principal); K26.9 Duodenal ulcer, unspecified as acute or chronic, without hemorrhage or perforation; K74.60 Unspecified cirrhosis of liver; K92.2 Gastrointestinal hemorrhage, unspecified; K21.0 Gastro-esophageal reflux disease with esophagitis; I10 Essential (primary) hypertension; K29.70 Gastritis, unspecified, without bleeding; K29.80 Duodenitis without bleeding; G89.29 Other chronic pain; M54.9 Dorsalgia, unspecified; D73.1 Hypersplenism; K59.00 Constipation, unspecified; B18.2 Chronic viral hepatitis C; Z86.19 Personal history of other infectious and parasitic diseases; Z87.11 Personal history of peptic ulcer disease
CPT/HCPCS: 36430; 76937; 80048; 80053; 81001; 82140; 83690; 83880; 84484; 85014; 85018; 85025; 85027; 85610; 85730; 86850; 86900; 86901; 86920; 88305; 88312; 93005; 99284; C9113; J2270; J7050; P9016

== ENCOUNTER 2016-10-13 07:07 | Emergency (ER) | payer OTHER, MEDICARE ==
[~2016-10-13] VITALS: Ht 177.8 cm; Wt 75.0 kg
[~2016-10-13 07:07] MED LIST changes: +PANT40TA3 PO; -SPIR100T PO; -ZOFR4TAB PO
[2016-10-13 07:10] VITALS: BP 160/72; PULSE 75; RESP 16; TEMP 97.5; O2SAT 99
[2016-10-13] MEDS ORDERED: SPIR100T PO (12:25)
[2016-10-13] MEDS ORDERED: TRAM50TA PO (13:07)
== END 2016-10-13 09:05 | disposition left against medical advice (07) ==
LOC: NED 07:07
DX: R10.9 Unspecified abdominal pain (principal); Z53.21 Procedure and treatment not carried out due to patient leaving prior to being seen by health care provider
CPT/HCPCS: 99281

== ENCOUNTER 2016-10-13 11:03 | Emergency (ER) | payer OTHER, MEDICARE ==
[~2016-10-13] VITALS: Ht 175.3 cm; Wt 75.0 kg
[2016-10-13] MEDS ORDERED: SODIUM CHLORIDE 0.9% FLUSH 5 ML FLUSH IVF PRN (11:30)
[2016-10-13 11:50] VITALS: BP 173/80; PULSE 80; RESP 18; TEMP 98; O2SAT 98
--- NOTE | 2016-10-13 12:06 | PD ---
HPI Chief Complaint: Abdominal Pain Time Seen by Provider: 11:50 Travel History International Travel<30 days: No Contact w/Intl Traveler<30days: No Traveled to known affect area: No History of Present Illness HPI 66-year-old man with multiple medical issues, nursing past medical history reviewed, has a history of umbilical hernia which is usually reducible, presents to the ER today because he states that at 9 PM last night, the hernia came out and he has not been able to get it in. He had an episode of nausea and vomiting last night. He denies any fevers or any other issues. There is a lump at the umbilical hernia site now which is fairly tender, currently measuring at 9 out of 10. He denies any other issues. No significant exacerbating alleviating factors. Modifying Factors: None Associated Signs & Symptoms: Umbilical hernia pain, mass Risk Factors: None PFSH Past Medical History Anemia: Yes Asthma: No Heart Rhythm Problems: No Cancer: No Cardiovascular Problems: Yes High Cholesterol: No Chest Pain: No Congestive Heart Failure: No COPD: No Endocrine: No Gastrointestinal Disorders: Yes GERD: Yes Genitourinary: No Hepatitis: Yes (HEPATITIS C) Hiatal Hernia: Yes Hypertension: Yes Immune Disorder: No Implanted Vascular Access Dvce: No Musculoskeletal: No Neurologic: No Psychiatric: No Reproductive: No Respiratory: Yes Sleep Apnea: No Ulcer: Yes (peptic) Past Surgical History Eye Surgery: Yes (bilateral cataracts removed) Other Surgery: Yes (endoscopy with biopsy) Social History Alcohol Use: No Tobacco Use: No Substance Use: No Allergies-Medications (Allergen,Severity, Reaction): Coded Allergies: No Known Allergies (Unverified , 10/13/16) Reported Meds & Prescriptions Reported Meds & Active Scripts Active Pantoprazole (Pantoprazole Sodium) 40 Mg Tab 40 Mg PO BID Colace (Docusate Sodium) 100 Mg Cap 100 Mg PO BID 5 Days Reported Spironolactone 100 Mg Tab 100 Mg PO DAILY Review of Systems Except as stated in HPI: all other systems reviewed are Neg Physical Exam Narrative GENERAL: Well-nourished, well-developed elderly white male patient in no acute distress at rest. SKIN: Warm and dry. HEAD: Normocephalic. EYES: No scleral icterus. No injection or drainage. NECK: Supple, trachea midline. CARDIOVASCULAR: Regular rate and rhythm without murmurs, gallops, or rubs. RESPIRATORY: Breath sounds equal bilaterally. No accessory muscle use. GASTROINTESTINAL: Abdomen soft, with notable umbilical 4 cm hernia mass which is tender to palpation, nondistended. MUSCULOSKELETAL: No cyanosis, or edema. BACK: Nontender without obvious deformity. No CVA tenderness. Data Data Last Documented VS Vital Signs Date Time Temp Pulse Resp B/P Pulse Ox O2 Delivery O2 Flow Rate FiO2 10/13/16 13:02 87 18 148/70 99 Room Air 10/13/16 11:50 98.0 Orders Complete Blood Count With Diff (10/13/16 11:28) Comprehensive Metabolic Panel (10/13/16 11:28) Lactic Acid (10/13/16 11:28) Prothrombin Time / Inr (Pt) (10/13/16 11:28) Act Partial Throm Time (Ptt) (10/13/16 11:28) Iv Access Insert/Monitor (10/13/16 11:28) Ecg Monitoring (10/13/16 11:28) Oximetry (10/13/16 11:28) NPO (10/13/16 11:28) Sodium Chloride 0.9% Flush (Ns Flush) (10/13/16 11:30) Type And Screen (10/13/16 11:49) Hydromorphone Pf Inj (Dilaudid Pf Inj) (10/13/16 12:15) Ondansetron Inj (Zofran Inj) (10/13/16 12:15) Labs Laboratory Tests Test 10/13/16 10/13/16 11:50 11:55 White Blood Count 4.3 TH/MM3 Red Blood Count 3.56 MIL/MM3 Hemoglobin 10.3 GM/DL Hematocrit 30.9 % Mean Corpuscular Volume 86.7 FL Mean Corpuscular Hemoglobin 29.0 PG Mean Corpuscular Hemoglobin 33.5 % Concent Red Cell Distribution Width 17.5 % Platelet Count 119 TH/MM3 Mean Platelet Volume 7.8 FL Neutrophils (%) (Auto) 79.7 % Lymphocytes (%) (Auto) 12.6 % Monocytes (%) (Auto) 6.8 % Eosinophils (%) (Auto) 0.3 % Basophils (%) (Auto) 0.6 % Neutrophils # (Auto) 3.4 TH/MM3 Lymphocytes # (Auto) 0.5 TH/MM3 Monocytes # (Auto) 0.3 TH/MM3 Eosinophils # (Auto) 0.0 TH/MM3 Basophils # (Auto) 0.0 TH/MM3 CBC Comment DIFF FINAL Differential Comment Prothrombin Time 16.2 SEC Prothromb Time International 1.4 RATIO Ratio Activated Partial 29.8 SEC Thromboplast Time Sodium Level 139 MEQ/L Potassium Level 4.2 MEQ/L Chloride Level 106 MEQ/L Carbon Dioxide Level 22.5 MEQ/L Anion Gap 11 MEQ/L Blood Urea Nitrogen 16 MG/DL Creatinine 1.29 MG/DL Estimat Glomerular Filtration 56 ML/MIN Rate Random Glucose 126 MG/DL Calcium Level 9.2 MG/DL Total Bilirubin 2.8 MG/DL Aspartate Amino Transf 44 U/L (AST/SGOT) Alanine Aminotransferase 27 U/L (ALT/SGPT) Alkaline Phosphatase 79 U/L Total Protein 7.7 GM/DL Albumin 3.1 GM/DL Blood Type O POSITIVE Lactic Acid Level 2.2 mmol/L [facility] Medical Decision Making Medical Screen Exam Complete: Yes Emergency Medical Condition: Yes Medical Record Reviewed: Yes Interpretation(s) Laboratory Tests Test 10/13/16 10/13/16 11:50 11:55 Red Blood Count 3.56 MIL/MM3 (4.50-5.90) Hemoglobin 10.3 GM/DL (13.0-17.0) Hematocrit 30.9 % (39.0-51.0) Red Cell Distribution Width 17.5 % (11.6-17.2) Platelet Count 119 TH/MM3 (150-450) Neutrophils (%) (Auto) 79.7 % (16.0-70.0) Lymphocytes # (Auto) 0.5 TH/MM3 (1.0-4.8) Prothrombin Time 16.2 SEC (9.8-11.6) Estimat Glomerular Filtration 56 ML/MIN (>89) Rate Random Glucose 126 MG/DL (74-106) Total Bilirubin 2.8 MG/DL (0.2-1.0) Aspartate Amino Transf 44 U/L (15-37) (AST/SGOT) Albumin 3.1 GM/DL (3.4-5.0) Lactic Acid Level 2.2 mmol/L (0.4-2.0) Differential Diagnosis Incarcerated hernia versus mass versus reducible hernia Narrative Course Umbilical hernia was reduced by me in the ER without issues. Patient tolerated procedure well. He reports 98% symptoms relief after reduction. At this point , my plan would be to release the patient with follow-up to his general surgeon who is post to see on the for definitive repair. Return for any worsening in pain, vomiting, fevers, or new symptoms as needed. The plan has been discussed with him and he states understanding. Procedures Procedure Narrative Umbilical hernia reduction: Patient is placed in Trendelenburg position, pain medications and Zofran was given. Ice bag was placed in the area. Direct pressure was applied to the area after medications and ice and I was able to reduce the umbilical hernia without issues. Patient reports relief and tolerated procedure well. Diagnosis Primary Impression: Umbilical hernia Med/Other Pt SpecificInfo: Prescription(s) given Scripts Tramadol 50 Mg Tab50 Mg PO Q6H PRN (PAIN) #15 TAB Ref 0 Prov:Stanley Garrett MD 10/13/16 Disposition: 01 DISCHARGE HOME Condition: Stable Stanley Garrett MD Oct 13, 2016 12:06
[2016-10-13 12:14] VITALS: O2SAT 98
[2016-10-13] MEDS ORDERED: HYDROmorphone HCL PF 1 MG/ML VIAL IV PUSH ONE (12:15)
[2016-10-13] MEDS ORDERED: ONDANSETRON HCL 4 MG/2 ML VIAL IV PUSH ONE (12:15)
[2016-10-13 12:19] LABS: AUTOMATED NEUTROPHIL # 3.4 TH/MM3 (1.8-7.7); BASOPHIL % 0.6 % (0.0-2.0); EOSINOPHIL % 0.3 % (0.0-4.0); HEMATOCRIT 30.9 % (39.0-51.0); HEMO FLAGS DIFF FINAL; LYMPH % 12.6 % (9.0-44.0); LYMPHOCYTE # 0.5 TH/MM3 (1.0-4.8); MEAN CELL VOLUME 86.7 FL (80.0-100.0); MEAN CORPUSCULAR HGB CONC 33.5 % (32.0-36.0); MONO % 6.8 % (0.0-8.0); NEUT % 79.7 % (16.0-70.0); PLATELET COUNT 119 TH/MM3 (150-450); RED BLOOD COUNT 3.56 MIL/MM3 (4.50-5.90); RED CELL DISTRIBUTION WIDTH 17.5 % (11.6-17.2); WHITE BLOOD COUNT 4.3 TH/MM3 (4.0-11.0)
[2016-10-13] MEDS ORDERED: SPIR100T PO (12:25)
[2016-10-13 12:27] LABS: APTT (PATIENT) 29.8 SEC (24.3-30.1); INTERNATIONAL NORMALIZED RATIO 1.4 RATIO; PROTHROMBIN TIME - PATIENT 16.2 SEC (9.8-11.6)
[2016-10-13 12:37] LABS: ALT (GPT) 27 U/L (12-78); ANION GAP 11 MEQ/L (5-15); AST (GOT) 44 U/L (15-37); BICARBONATE 22.5 MEQ/L (21.0-32.0); BLOOD UREA NITROGEN 16 MG/DL (7-18); CHLORIDE 106 MEQ/L (98-107); GLOMERULAR FILTRATION RATE 56 ML/MIN (>89); POTASSIUM 4.2 MEQ/L (3.5-5.1); SODIUM (NA) 139 MEQ/L (136-145)
[2016-10-13 12:39] LABS: ALKALINE PHOSPHATASE 79 U/L (45-117); TOTAL BILIRUBIN ADULT 2.8 MG/DL (0.2-1.0)
[2016-10-13 13:02] VITALS: BP 148/70; PULSE 87; RESP 18; O2SAT 99
[2016-10-13] MEDS ORDERED: TRAM50TA PO (13:07)
== END 2016-10-13 13:50 | disposition home or self-care (01) ==
LOC: NEPC 11:03
DX: K42.9 Umbilical hernia without obstruction or gangrene (principal); R11.2 Nausea with vomiting, unspecified; I10 Essential (primary) hypertension; Z86.2 Personal history of diseases of the blood and blood-forming organs and certain disorders involving the immune mechanism; Z86.79 Personal history of other diseases of the circulatory system; Z87.19 Personal history of other diseases of the digestive system; Z86.19 Personal history of other infectious and parasitic diseases; Z87.09 Personal history of other diseases of the respiratory system
CPT/HCPCS: 80053; 83605; 85025; 85610; 85730; 86850; 86900; 86901; 96374; 96375; 99284; J1170; J2405

== ENCOUNTER 2017-01-18 20:33 | Inpatient (IN) | payer MEDICARE, OTHER ==
[~2017-01-18] VITALS: Ht 177.8 cm; Wt 64.2 kg
[~2017-01-18 20:33] MED LIST changes: +SPIR100T PO
[2017-01-18 20:57] VITALS: BP 167/77; PULSE 92; RESP 18; TEMP 98.8; O2SAT 99
[2017-01-18] MEDS ORDERED: SODIUM CHLOR 0.9% 1000 ML INJ 1,000 ML IV SCH (21:13)
[2017-01-18] MEDS ORDERED: SODIUM CHLORIDE 0.9% FLUSH 5 ML FLUSH IV FLUSH PRN (21:15)
[2017-01-18 21:16] VITALS: RESP 16; O2SAT 95
[2017-01-18 21:34] LABS: BLOOD, URINE NEG (NEG); GLUCOSE,URINE NEG (NEG); KETONE, URINE NEG (NEG); NITRITE,URINE NEG (NEG); PH, URINE 5.5 (5.0-8.5); SQUAMOUS EPITHELIAL CELL URINE <1 /hpf (0-5); URINE COLOR YELLOW (YELLW/STRAW)
[2017-01-18 21:36] LABS: BASOPHIL % 0.4 % (0.0-2.0); EOSINOPHIL # 0.2 TH/MM3 (0-0.4); EOSINOPHIL % 1.7 % (0.0-4.0); HEMATOCRIT 22.2 % (39.0-51.0); HEMO FLAGS DIFF FINAL; LYMPH % 17.2 % (9.0-44.0); LYMPHOCYTE # 1.7 TH/MM3 (1.0-4.8); MEAN CELL VOLUME 92.3 FL (80.0-100.0); MEAN CORPUSCULAR HEMOGLOBIN 32.3 PG (27.0-34.0); MONO % 9.1 % (0.0-8.0); NEUT % 71.6 % (16.0-70.0); PLATELET COUNT 181 TH/MM3 (150-450); RED BLOOD COUNT 2.41 MIL/MM3 (4.50-5.90); WHITE BLOOD COUNT 9.8 TH/MM3 (4.0-11.0)
--- NOTE | 2017-01-18 21:36 | PD ---
HPI Chief Complaint: Altered Mental Status Time Seen by Provider: 21:01 Travel History International Travel<30 days: No Contact w/Intl Traveler<30days: No Traveled to known affect area: No History of Present Illness HPI Patient is a 66-year-old male who presents to emergency room from home for evaluation of altered mental status. As per EMS, reported that patient has been confused and had not recognized herself as well as their pets since Tuesday. Patient does have history of liver cirrhosis and currently is on lactulose, apparently patient had his ammonia level checked on at the [facility] and his levels were within normal limits. Patient is alert to person only on stretcher, patient with no complaints at this time. Attempt made to call patient's , Padmaja Beckford, for further HPI no answer PFS Past Medical History Anemia: Yes Asthma: No Heart Rhythm Problems: No Cancer: No Cardiovascular Problems: Yes High Cholesterol: No Chest Pain: No Congestive Heart Failure: No COPD: No Diminished Hearing: Yes Endocrine: No Gastrointestinal Disorders: Yes GERD: Yes Genitourinary: No Hepatitis: Yes (HEPATITIS C) Hiatal Hernia: Yes Hypertension: Yes Immune Disorder: No Implanted Vascular Access Dvce: No Musculoskeletal: No Neurologic: No Psychiatric: No Reproductive: No Respiratory: Yes Sleep Apnea: No Ulcer: Yes (peptic) Tetanus Vaccination: Unknown Influenza Vaccination: No Past Surgical History Eye Surgery: Yes (bilateral cataracts removed) Other Surgery: Yes (endoscopy with biopsy) Social History Alcohol Use: No Tobacco Use: No Substance Use: No Allergies-Medications (Allergen,Severity, Reaction): Coded Allergies: No Known Allergies (Unverified , 01/18/17) Reported Meds & Prescriptions Reported Meds & Active Scripts Active Tramadol (Tramadol HCl) 50 Mg Tab 50 Mg PO Q6H PRN Reported Lactulose Liq (Lactulose) 10 Gm/15 Ml Soln 30 Ml PO BID PRN Spironolactone 100 Mg Tab 100 Mg PO DAILY Review of Systems ROS Limitations: Altered Mental Status General / Constitutional: Positive: Fever Eyes: No: Visual changes HENT: No: Headaches Cardiovascular: No: Chest Pain or Discomfort Respiratory: No: Shortness of Breath Gastrointestinal: No: Abdominal Pain Genitourinary: No: Dysuria Musculoskeletal: No: Pain Skin: No Rash Neurologic: No: Weakness Psychiatric: No: Depression Endocrine: No: Polydipsia Hematologic/Lymphatic: No: Easy Bruising Physical Exam Exam Limitations: Altered Mental Status Narrative GENERAL: confused SKIN: Focused skin assessment warm/dry. HEAD: Atraumatic. Normocephalic. EYES: Pupils equal and round. No scleral icterus. No injection or drainage. ENT: No nasal bleeding or discharge. Mucous membranes pink and moist. NECK: Trachea midline. No JVD. CARDIOVASCULAR: Regular rate and rhythm. No murmur appreciated. RESPIRATORY: No accessory muscle use. Clear to auscultation. Breath sounds equal bilaterally. GASTROINTESTINAL: Abdomen soft, non-tender, nondistended. Hepatic and splenic margins not palpable. MUSCULOSKELETAL: No obvious deformities. No clubbing. No cyanosis. No edema. NEUROLOGICAL: Awake and alert to person only. No obvious cranial nerve deficits. Motor grossly within normal limits. PSYCHIATRIC: patient alert to person only Data Data Last Documented VS Vital Signs Date Time Temp Pulse Resp B/P Pulse Ox O2 Delivery O2 Flow Rate FiO2 01/18/17 21:16 16 95 Room Air 01/18/17 20:57 98.8 92 167/77 Orders Electrocardiogram (01/18/17 ) Ammonia (01/18/17 21:13) Complete Blood Count With Diff (01/18/17 21:13) Comprehensive Metabolic Panel (01/18/17 21:13) Creatine Kinase (Cpk) (01/18/17 21:13) Prothrombin Time / Inr (Pt) (01/18/17 21:13) Act Partial Throm Time (Ptt) (01/18/17 21:13) Troponin I (01/18/17 21:13) Urinalysis - C+S If Indicated (01/18/17 21:13) Blood Culture (01/18/17 21:13) Chest, Single Ap (01/18/17 21:13) Ct Brain W/O Iv Contrast(Rout) (01/18/17 21:13) Ecg Monitoring (01/18/17 21:13) Iv Access Insert/Monitor (01/18/17 21:13) Cath For Specimen (01/18/17 21:13) Oximetry (01/18/17 21:13) Sodium Chloride 0.9% Flush (Ns Flush) (01/18/17 21:15) Sodium Chlor 0.9% 1000 Ml Inj (Ns 1000 M (01/18/17 21:13) Admit Order (Ed Use Only) (01/18/17 22:25) Labs Laboratory Tests Test 01/18/17 21:18 White Blood Count 9.8 TH/MM3 Red Blood Count 2.41 MIL/MM3 Hemoglobin 7.8 GM/DL Hematocrit 22.2 % Mean Corpuscular Volume 92.3 FL Mean Corpuscular Hemoglobin 32.3 PG Mean Corpuscular Hemoglobin 35.0 % Concent Red Cell Distribution Width 18.0 % Platelet Count 181 TH/MM3 Mean Platelet Volume 8.0 FL Neutrophils (%) (Auto) 71.6 % Lymphocytes (%) (Auto) 17.2 % Monocytes (%) (Auto) 9.1 % Eosinophils (%) (Auto) 1.7 % Basophils (%) (Auto) 0.4 % Neutrophils # (Auto) 7.0 TH/MM3 Lymphocytes # (Auto) 1.7 TH/MM3 Monocytes # (Auto) 0.9 TH/MM3 Eosinophils # (Auto) 0.2 TH/MM3 Basophils # (Auto) 0.0 TH/MM3 CBC Comment DIFF FINAL Differential Comment Prothrombin Time 15.5 SEC Prothromb Time International 1.4 RATIO Ratio Activated Partial 28.7 SEC Thromboplast Time Urine Color YELLOW Urine Turbidity CLEAR Urine pH 5.5 Urine Specific [place] 1.015 Urine Protein NEG mg/dL Urine Glucose (UA) NEG mg/dL Urine Ketones NEG mg/dL Urine Occult Blood NEG Urine Nitrite NEG Urine Bilirubin NEG Urine Urobilinogen LESS THAN 2.0 MG/DL Urine Leukocyte Esterase NEG Urine RBC LESS THAN 1 /hpf Urine WBC 1 /hpf Urine Squamous Epithelial <1 /hpf Cells Microscopic Urinalysis Comment CATH-CULT NOT IND Sodium Level 139 MEQ/L Potassium Level 4.2 MEQ/L Chloride Level 105 MEQ/L Carbon Dioxide Level 18.3 MEQ/L Anion Gap 16 MEQ/L Blood Urea Nitrogen 90 MG/DL Creatinine 3.16 MG/DL Estimat Glomerular Filtration 20 ML/MIN Rate Random Glucose 118 MG/DL Calcium Level 8.6 MG/DL Total Bilirubin 2.7 MG/DL Aspartate Amino Transf 53 U/L (AST/SGOT) Alanine Aminotransferase 27 U/L (ALT/SGPT) Alkaline Phosphatase 80 U/L Ammonia 81 MCMOL/L Total Creatine Kinase 65 U/L Troponin I LESS THAN 0.02 NG/ML Total Protein 6.8 GM/DL Albumin 2.7 GM/DL MDM Medical Decision Making Medical Screen Exam Complete: Yes Emergency Medical Condition: Yes Interpretation(s) EKG at 2058: NSR at 90bpm, qt/qtc: 356/404, nonspecific t wave changes Vital Signs Date Time Temp Pulse Resp B/P Pulse Ox O2 Delivery O2 Flow Rate FiO2 01/18/17 21:16 16 95 Room Air 01/18/17 20:57 98.8 92 18 167/77 99 Differential Diagnosis Hyperammonia - metabolic encephalopathy, electrolyte abnormality, UTI, CVA, intracranial hemorrhage Narrative Course Patient is a 66-year-old male who presents to emergency room with complaints of altered mental status. Patient has history of liver cirrhosis, is currently lactulose, as per EMS, patient's reports that patient has been altered since Tuesday. Patient is alert only to person at bedside, patient cannot provide history of present illness this time. Patient was placed on a library monitor upon arrival to the emergency room. CT of the head, lab work, cardiac enzymes, UA ordered. I did order an ammonia level as well. I did attempt to call pt's to obtain further history: Padmaja Beckford at [phone] - no answer Laboratory Tests Test 01/18/17 21:18 White Blood Count 9.8 TH/MM3 (4.0-11.0) Red Blood Count 2.41 MIL/MM3 (4.50-5.90) Hemoglobin 7.8 GM/DL (13.0-17.0) Hematocrit 22.2 % (39.0-51.0) Mean Corpuscular Volume 92.3 FL (80.0-100.0) Mean Corpuscular Hemoglobin 32.3 PG (27.0-34.0) Mean Corpuscular Hemoglobin 35.0 % Concent (32.0-36.0) Red Cell Distribution Width 18.0 % (11.6-17.2) Platelet Count 181 TH/MM3 (150-450) Mean Platelet Volume 8.0 FL (7.0-11.0) Neutrophils (%) (Auto) 71.6 % (16.0-70.0) Lymphocytes (%) (Auto) 17.2 % (9.0-44.0) Monocytes (%) (Auto) 9.1 % (0.0-8.0) Eosinophils (%) (Auto) 1.7 % (0.0-4.0) Basophils (%) (Auto) 0.4 % (0.0-2.0) Neutrophils # (Auto) 7.0 TH/MM3 (1.8-7.7) Lymphocytes # (Auto) 1.7 TH/MM3 (1.0-4.8) Monocytes # (Auto) 0.9 TH/MM3 (0-0.9) Eosinophils # (Auto) 0.2 TH/MM3 (0-0.4) Basophils # (Auto) 0.0 TH/MM3 (0-0.2) CBC Comment DIFF FINAL Differential Comment Prothrombin Time 15.5 SEC (9.8-11.6) Prothromb Time International 1.4 RATIO Ratio Activated Partial 28.7 SEC Thromboplast Time (24.3-30.1) Urine Color YELLOW (YELLW/STRAW) Urine Turbidity CLEAR (CLEAR) Urine pH 5.5 (5.0-8.5) Urine Specific [place] 1.015 (1.002-1.035) Urine Protein NEG mg/dL (NEG-TRACE) Urine Glucose (UA) NEG mg/dL (NEG) Urine Ketones NEG mg/dL (NEG) Urine Occult Blood NEG (NEG) Urine Nitrite NEG (NEG) Urine Bilirubin NEG (NEG) Urine Urobilinogen LESS THAN 2.0 MG/DL (LESS THAN 2.0) Urine Leukocyte Esterase NEG (NEG) Urine RBC LESS THAN 1 /hpf (0-3) Urine WBC 1 /hpf (0-5) Urine Squamous Epithelial <1 /hpf (0-5) Cells Microscopic Urinalysis Comment CATH-CULT NOT IND Sodium Level 139 MEQ/L (136-145) Potassium Level 4.2 MEQ/L (3.5-5.1) Chloride Level 105 MEQ/L (98-107) Carbon Dioxide Level 18.3 MEQ/L (21.0-32.0) Anion Gap 16 MEQ/L (5-15) Blood Urea Nitrogen 90 MG/DL (7-18) Creatinine 3.16 MG/DL (0.60-1.30) Estimat Glomerular Filtration 20 ML/MIN (>89) Rate Random Glucose 118 MG/DL (74-106) Calcium Level 8.6 MG/DL (8.5-10.1) Total Bilirubin 2.7 MG/DL (0.2-1.0) Aspartate Amino Transf 53 U/L (15-37) (AST/SGOT) Alanine Aminotransferase 27 U/L (12-78) (ALT/SGPT) Alkaline Phosphatase 80 U/L (45-117) Ammonia 81 MCMOL/L (11-32) Total Creatine Kinase 65 U/L (39-308) Troponin I LESS THAN 0.02 NG/ML (0.02-0.05) Total Protein 6.8 GM/DL (6.4-8.2) Albumin 2.7 GM/DL (3.4-5.0) Last Impressions Head CT 01/18/172112 Signed Impressions: Service Date/Time: Wednesday, January 18, 2017 21:53 - CONCLUSION: Negative noncontrast CT. Rio Byrd MD Chest X-Ray 01/18/172112 Signed Impressions: Service Date/Time: Wednesday, January 18, 2017 21:31 - CONCLUSION: No acute disease. Rio Byrd MD Patient's BUN/creatinine is 90/316, previous BUN/CR: 16/.29 - patient with acute renal failure, most likely from dehydration. Patient's is at bedside, reports that patient has not been feeling well since Tuesday. She has been refusing to eat or drink anything for the past few days, he was able to force him to drink a bottle of water today. Reports that he is normally alert and oriented 3, reports that he was told that his ammonia level is normal on when he went to the [facility] at [place] for follow[facility]up. [facility] functions were a little elevated but she does not remember the numbers. Call made to medicine service for admission Case reviewed with Dr. Gaffney who accepts pt to service Diagnosis Primary Impression: Renal failure Additional Impression: Encephalopathy Admitting Information Admitting Physician Requests: Admit Yancy Jimenez DO January 18, 2017 21:36
[2017-01-18 21:41] LABS: COMMENT (UR) CATH-CULT NOT IND; CULTURE IF INDICATED CATH CULTURE NOT IND
[2017-01-18] MEDS ORDERED: LACT10SO PO (21:43)
--- NOTE | 2017-01-18 21:47 | RADRPT ---
EXAM DATE/TIME: 01/18/2017 21:31 [facility] COMPARISON: CHEST SINGLE AP, November 27, 2015, 10:17. INDICATIONS : Syncope, altered mental status. MEDICAL HISTORY : Cirrhosis. Hepatitis C. SURGICAL HISTORY : None. ENCOUNTER: Initial ACUITY: 2 days PAIN SCORE: 0/10 LOCATION: Bilateral chest FINDINGS: A single view of the chest demonstrates the lungs to be symmetrically aerated without evidence of mas s, infiltrate or effusion. The cardiomediastinal contours are unremarkable. Osseous structures are intact. CONCLUSION: No acute disease. Rio Byrd MD on January 18, 2017 at 21:45 Board Certified Radiologist. This report was verified electronically.
[2017-01-18 21:48] LABS: APTT (PATIENT) 28.7 SEC (24.3-30.1); INTERNATIONAL NORMALIZED RATIO 1.4 RATIO; PROTHROMBIN TIME - PATIENT 15.5 SEC (9.8-11.6)
[2017-01-18 22:01] LABS: ANION GAP 16 MEQ/L (5-15); AST (GOT) 53 U/L (15-37); BICARBONATE 18.3 MEQ/L (21.0-32.0); BLOOD UREA NITROGEN 90 MG/DL (7-18); CHLORIDE 105 MEQ/L (98-107); GLOMERULAR FILTRATION RATE 20 ML/MIN (>89); POTASSIUM 4.2 MEQ/L (3.5-5.1); SODIUM (NA) 139 MEQ/L (136-145)
--- NOTE | 2017-01-18 22:03 | RADRPT ---
EXAM DATE/TIME: 01/18/2017 21:53 [facility] COMPARISON: No previous studies available for comparison. INDICATIONS : Altered mental status. RADIATION DOSE: 38.59 CTDIvol (mGy) MEDICAL HISTORY : Cardiovascular disease. Hypertension. Hepatitis C.GERD. Cirrhosis. SURGICAL HISTORY : Non-responsive. None. ENCOUNTER: Initial ACUITY: 1 day PAIN SCALE: 0/10 LOCATION: cranial TECHNIQUE: Multiple contiguous axial images were obtained of the head. Using automated exposure control and adj ustment of the mA and/or kV according to patient size, radiation dose was kept as low as reasonably a chievable to obtain optimal diagnostic quality images. FINDINGS: CEREBRUM: The ventricles are normal for age. No evidence of midline shift, mass lesion, hemorrhage or acute in farction. No extra-axial fluid collections are seen. POSTERIOR FOSSA: The cerebellum and brainstem are intact. The 4th ventricle is midline. The cerebellopontine angle i s unremarkable. EXTRACRANIAL: The visualized portion of the orbits is intact. SKULL: The calvaria is intact. No evidence of skull fracture. CONCLUSION: Negative noncontrast CT. Rio Byrd MD on January 18, 2017 at 22:01 Board Certified Radiologist. This report was verified electronically.
[2017-01-18 22:05] LABS: ALKALINE PHOSPHATASE 80 U/L (45-117); ALT (GPT) 27 U/L (12-78); TOTAL BILIRUBIN ADULT 2.7 MG/DL (0.2-1.0)
[2017-01-18 22:07] LABS: CREATINE KINASE 65 U/L (39-308)
[2017-01-18 22:33] VITALS: BP 158/76; PULSE 90; RESP 18; O2SAT 98
[2017-01-18 23:00] VITALS: BP 129/70; PULSE 84; RESP 18; O2SAT 96
[2017-01-19] VITALS (14 sets, daily range): BP systolic 126–185; BP diastolic 63–113; PULSE 75–91; RESP 16–20; TEMP 97.5–99.8; O2SAT 95–100
[2017-01-19] MEDS ORDERED: SODIUM CHLOR 0.9% 1000 ML INJ 1,000 ML IV SCH (00:58)
[2017-01-19] MEDS ORDERED: SODIUM CHLORIDE 0.9% FLUSH 10 ML FLUSH IV FLUSH PRN (01:00)
[2017-01-19] MEDS ORDERED: ACETAMINOPHEN 325 MG TAB PO PRN ×2 (01:00)
[2017-01-19] MEDS ORDERED: SENNOSIDES 8.6 MG TAB PO PRN (01:00)
[2017-01-19] MEDS ORDERED: NALOXONE HCL 0.4 MG/ML AMP IV PRN (01:00)
--- NOTE | 2017-01-19 01:17 | HHI.HP ---
[facility] Admission Diagnosis Acute Renal failure Diagnoses: Chief Complaint: Confused Travel History International Travel<30 Days: No Contact w/Intl Traveler <30 Da: No Traveled to Known Affected Are: No History of Present Illness The patient is a 66-year-old male with a past medical history of liver disease who is presenting to the hospital with confusion. Per reports the patient's stated that the patient has been acting abnormal since Tuesday. He has been confused and forgetting things that he normally knows. In the emergency department he was calm but was unable to maintain a coherent dialogue. He did not indicate that he was in any discomfort. Per report the patient had an ammonia checked at the [place] that was normal. He is on lactulose as an outpatient. In the emergency department he was found to be in acute renal failure along with having an elevated ammonia level of 81. The patient appeared lethargic but was able to respond to questions with prompting. Review of Systems ROS Limitations: Clinical Condition, Altered Mental Status, Poor Historian Except as stated in HPI: all other systems reviewed are Neg Past Family Social History Past Medical History Chronic hepatitis C, S/P Tx with Harvoni Liver cirrhosis HTN GERD PUD Chronic anemia Upper GI bleeding Gastritis Diverticulosis Hypersplenism Chronic thrombocytopenia Bilateral Cataracts Left knee surgery Allergies: Coded Allergies: No Known Allergies (Unverified , 01/18/17) Active Ordered Medications Current Medications Medications (Trade) Dose Ordered Sig/Brooke Route Start Time Stop Time Status Last Admin (NS Flush) 2 ml UNSCH PRN IV FLUSH 01/18/17 21:15 Family History Alzheimer's Parkinson's Social History Denies smoking and drinking. Physical Exam Vital Signs Vital Signs Date Time Temp Pulse Resp B/P Pulse Ox O2 Delivery O2 Flow Rate FiO2 01/18/17 23:00 84 18 129/70 96 Room Air 01/18/17 22:33 90 18 158/76 98 Room Air 01/18/17 21:16 16 95 Room Air 01/18/17 20:57 98.8 92 18 167/77 99 Physical Exam GENERAL: NAD, resting. SKIN: Focused skin assessment warm/dry. HEAD: Atraumatic. Normocephalic. EYES: Pupils equal and round. No scleral icterus. No injection or drainage. ENT: No nasal bleeding or discharge. Mucous membranes pink and moist. NECK: Trachea midline. No JVD. CARDIOVASCULAR: Regular rate and rhythm. Grade 1 systolic murmur appreciated. RESPIRATORY: No accessory muscle use. Clear to auscultation. Breath sounds equal bilaterally. GASTROINTESTINAL: Abdomen soft, non-tender, nondistended. Hepatic and splenic margins not palpable. MUSCULOSKELETAL: No obvious deformities. No clubbing. No cyanosis. No edema. NEUROLOGICAL: Oriented to person only. Lethargic. No obvious cranial nerve deficits. Motor grossly within normal limits. PSYCHIATRIC: Confused. Laboratory Laboratory Tests Test 01/18/17 21:18 White Blood Count 9.8 Red Blood Count 2.41 Hemoglobin 7.8 Hematocrit 22.2 Mean Corpuscular Volume 92.3 Mean Corpuscular Hemoglobin 32.3 Mean Corpuscular Hemoglobin 35.0 Concent Red Cell Distribution Width 18.0 Platelet Count 181 Mean Platelet Volume 8.0 Neutrophils (%) (Auto) 71.6 Lymphocytes (%) (Auto) 17.2 Monocytes (%) (Auto) 9.1 Eosinophils (%) (Auto) 1.7 Basophils (%) (Auto) 0.4 Neutrophils # (Auto) 7.0 Lymphocytes # (Auto) 1.7 Monocytes # (Auto) 0.9 Eosinophils # (Auto) 0.2 Basophils # (Auto) 0.0 CBC Comment DIFF FINAL Differential Comment Prothrombin Time 15.5 Prothromb Time International 1.4 Ratio Activated Partial 28.7 Thromboplast Time Urine Color YELLOW Urine Turbidity CLEAR Urine pH 5.5 Urine Specific [place] 1.015 Urine Protein NEG Urine Glucose (UA) NEG Urine Ketones NEG Urine Occult Blood NEG Urine Nitrite NEG Urine Bilirubin NEG Urine Urobilinogen LESS THAN 2.0 Urine Leukocyte Esterase NEG Urine RBC LESS THAN 1 Urine WBC 1 Urine Squamous Epithelial <1 Cells Microscopic Urinalysis Comment CATH-CULT NOT IND Sodium Level 139 Potassium Level 4.2 Chloride Level 105 Carbon Dioxide Level 18.3 Anion Gap 16 Blood Urea Nitrogen 90 Creatinine 3.16 Estimat Glomerular Filtration 20 Rate Random Glucose 118 Calcium Level 8.6 Total Bilirubin 2.7 Aspartate Amino Transf 53 (AST/SGOT) Alanine Aminotransferase 27 (ALT/SGPT) Alkaline Phosphatase 80 Ammonia 81 Total Creatine Kinase 65 Troponin I LESS THAN 0.02 Total Protein 6.8 Albumin 2.7 Date/Time Procedure Status Source Growth 01/18/17 21:18 Aerobic Blood Culture Received Blood Peripheral Pending 01/18/17 21:18 Anaerobic Blood Culture Received Blood Peripheral Pending Result Diagram: 01/18/17211701/18/172117 Imaging Last Impressions Head CT 01/18/172112 Signed Impressions: Service Date/Time: Wednesday, January 18, 2017 21:53 - CONCLUSION: Negative noncontrast CT. Rio Byrd MD Chest X-Ray 01/18/172112 Signed Impressions: Service Date/Time: Wednesday, January 18, 2017 21:31 - CONCLUSION: No acute disease. Rio Byrd MD Assessment and Plan Assessment and Plan Acute metabolic encephalopathy Secondary to hyperammonemia and uremia. - Increase lactulose to 4 times a day dosing. - Keep the patient nothing by mouth with IV fluids. - PT/ OT/ ST. - neuro checks. Acute renal failure Possibly secondary to diuretic use and decreased by mouth intake. - Hold Aldactone. - IV fluids. - Monitor BMP and avoid nephrotoxic agents. Chronic anemia Hemoglobin is around baseline. - Follow CBC and transfuse as needed. Cirrhosis The pt has a history of HCV s/p treatment. He has a history of GIB. - follow LFTs. - continue PPI. - GI consult if needed. - hold Aldactone. - lactulose. PPx: SCDs; PPI Discussed Condition With Dr. Jimenez, pt, pt's nurse. Physician Certification 2 Midnight Certification Type: Admission for Inpatient Services Order for Inpatient Services The services are ordered in accordance with Medicare regulations or non- Medicare payer requirements, as applicable. In the case of services not specified as inpatient-only, they are appropriately provided as inpatient services in accordance with the 2-midnight benchmark. Estimated LOS (days): 2 days is the estimated time the patient will need to remain in the hospital, assuming treatment plan goals are met and no additional complications. Post-Hospital Plan: Not yet determined Rio Jaeger DO January 19, 2017 01:17
[2017-01-19] MEDS: LACTULOSE SYRUP 20 GM/30 ML CUP PO SCH ×5 (02:18→21:00)
[2017-01-19 06:37] LABS: INTERNATIONAL NORMALIZED RATIO 1.4 RATIO; PROTHROMBIN TIME - PATIENT 15.4 SEC (9.8-11.6)
[2017-01-19 06:38] LABS: AUTOMATED NEUTROPHIL # 4.9 TH/MM3 (1.8-7.7); BASOPHIL % 0.6 % (0.0-2.0); EOSINOPHIL # 0.2 TH/MM3 (0-0.4); EOSINOPHIL % 2.3 % (0.0-4.0); LYMPH % 19.4 % (9.0-44.0); LYMPHOCYTE # 1.4 TH/MM3 (1.0-4.8); MEAN CELL VOLUME 92.4 FL (80.0-100.0); MEAN CORPUSCULAR HEMOGLOBIN 32.5 PG (27.0-34.0); MEAN CORPUSCULAR HGB CONC 35.2 % (32.0-36.0); MONO % 10.1 % (0.0-8.0); NEUT % 67.6 % (16.0-70.0); PLATELET COUNT 135 TH/MM3 (150-450); RED BLOOD COUNT 2.05 MIL/MM3 (4.50-5.90); WHITE BLOOD COUNT 7.2 TH/MM3 (4.0-11.0)
[2017-01-19 06:51] LABS: HEMATOCRIT 18.9 % (39.0-51.0); HEMO FLAGS DIFF FINAL
[2017-01-19 06:59] LABS: ALKALINE PHOSPHATASE 74 U/L (45-117); ALT (GPT) 24 U/L (12-78); ANION GAP 11 MEQ/L (5-15); AST (GOT) 49 U/L (15-37); BICARBONATE 20.7 MEQ/L (21.0-32.0); BLOOD UREA NITROGEN 86 MG/DL (7-18); CHLORIDE 109 MEQ/L (98-107); GLOMERULAR FILTRATION RATE 23 ML/MIN (>89); SODIUM (NA) 141 MEQ/L (136-145); TOTAL BILIRUBIN ADULT 2.3 MG/DL (0.2-1.0)
[2017-01-19] MEDS: SODIUM CHLORIDE 0.9% FLUSH 10 ML FLUSH IV FLUSH SCH (07:34)
[2017-01-19] MEDS ORDERED: SODIUM CHLOR 0.9% 250 ML INJ 250 ML IV ONE (08:30)
[2017-01-19] MEDS: PANTOPRAZOLE SOD 40 MG DELAYED RELEASE TAB PO SCH (09:36)
[2017-01-19] MEDS: DOCUSATE SODIUM 100 MG CAP PO SCH ×2 (09:36→21:00)
--- NOTE | 2017-01-19 10:27 | HHI.PR ---
Addendum to Inpatient Note Addendum Reason: Additional Documentation Additional Information Patient seen and examined. He still encephalopathic. H&H dropped this morning. Discussed with his at bedside. He has been constipated. He has a right lower extremity wound that was initially an ulcer that was drained at an outside facility. Plan is to continue IV fluid Lactulose - transfused 2 units of PRBC Consult wound care for the right lower extremity wound. It appears to be healing. - F/U labs in AM. DW with his at length at bedside. Girma Cortes MD January 19, 2017 10:27
--- NOTE | 2017-01-19 19:37 | EKG ---
Date Performed: 01/18/2017 Time Performed: 20:59:43 PTAGE: 66 years EKG: Sinus rhythm NONSPECIFIC ST-T ABNORMALITY BORDERLINE ECG PREVIOUS TRACING : 09/28/2016 15.42 Compared to prior tracing no significant change DOCTOR: Isael Marshall Interpretating Date/Time 01/19/2017 19:36:09
[2017-01-20] VITALS (8 sets, daily range): BP systolic 138–156; BP diastolic 71–82; PULSE 75–97; RESP 16–18; TEMP 96.8–98.4; O2SAT 97–100
[2017-01-20 07:32] LABS: MEAN CELL VOLUME 88.7 FL (80.0-100.0); PLATELET COUNT 133 TH/MM3 (150-450); RED BLOOD COUNT 2.93 MIL/MM3 (4.50-5.90); RED CELL DISTRIBUTION WIDTH 19.9 % (11.6-17.2); REVIEW FLAG FINAL
[2017-01-20 08:15] LABS: BICARBONATE 20.2 MEQ/L (21.0-32.0); INDIRECT BILIRUBIN 2.7 MG/DL (0.0-0.8); POTASSIUM 3.6 MEQ/L (3.5-5.1); TOTAL BILIRUBIN ADULT 4.5 MG/DL (0.2-1.0)
[2017-01-20] MEDS: SODIUM CHLORIDE 0.9% FLUSH 10 ML FLUSH IV FLUSH SCH ×3 (09:00→21:00)
[2017-01-20] MEDS: DOCUSATE SODIUM 100 MG CAP PO SCH ×3 (09:00→21:00)
--- NOTE | 2017-01-20 09:36 | HHI.PR ---
Subjective Remarks Patient is to encephalopathy. No bowel movements. Ammonia levels went up to 110. He denies abdominal pain. Objective Vitals Vital Signs Date Time Temp Pulse Resp B/P Pulse Ox O2 Delivery O2 Flow Rate FiO2 01/20/17 08:00 98.0 75 18 143/75 98 01/20/17 04:00 97.7 78 16 138/71 98 01/20/17 00:00 97.9 77 18 155/76 99 01/19/17 20:37 78 01/19/17 20:00 98.3 75 17 164/82 99 01/19/17 16:04 98.6 81 16 145/79 99 01/19/17 16:00 98.6 81 16 145/79 99 01/19/17 16:00 99.4 82 20 133/71 99 01/19/17 13:11 99.2 87 16 152/76 100 01/19/17 12:51 99.1 82 16 147/75 99 01/19/17 12:00 99.1 84 20 147/75 99 I/O 01/19/17 01/19/17 01/19/17 01/20/17 01/20/17 01/20/17 07:00 15:00 23:00 07:00 15:00 23:00 Intake Total 240 ml Output Total 400 ml 400 ml Balance -400 ml 240 ml -400 ml Intake Oral 240 ml Output Urine Total 400 ml 400 ml # Voids 1 3 1 4 Result Diagram: 01/20/1771701/20/17717 Imaging Last Impressions Head CT 01/18/172112 Signed Impressions: Service Date/Time: Wednesday, January 18, 2017 21:53 - CONCLUSION: Negative noncontrast CT. Rio Byrd MD Chest X-Ray 01/18/172112 Signed Impressions: Service Date/Time: Wednesday, January 18, 2017 21:31 - CONCLUSION: No acute disease. Rio Byrd MD Objective Remarks GENERAL: Chronically ill-appearing male in no acute distress. CARDIOVASCULAR: Normal rate and regular rhythm without murmurs, gallops, or rubs. RESPIRATORY: Good respiratory efforts. Breath sounds equal and clear to auscultation bilaterally. GASTROINTESTINAL: Abdomen soft, non-tender, mild distention. Normal active bowel sounds MUSCULOSKELETAL: Extremities without cyanosis, or edema. SKIN: RLE dime size wound appear to be healing. NEURO: Lethargic. Moves all ext x4 PSYCH: Calm A/P Problem List: (1) Acute hepatic encephalopathy ICD Code: K72.00 Status: Acute (2) Cirrhosis ICD Code: K74.60 Status: Chronic (3) Symptomatic anemia ICD Code: D64.9 Status: Acute (4) Renal failure ICD Code: N19 Status: Acute (5) HTN (hypertension) ICD Code: I10 Status: Chronic Assessment and Plan 66-year-old male with Acute hepatic encephalopathy: Not responding to increased dose of lactulose. Not having bowel movements. - Continue lactulose 4 times a day dosing. -Liquid diet as tolerated, IV fluid - neuro checks. - Consult GI Acute renal failure: Improving Possibly secondary to diuretic use and decreased by mouth intake. - Hold Aldactone. - IV fluids. - Monitor BMP and avoid nephrotoxic agents. Acute on chronic anemia: s/p 2 units transfusion of PRBC on 01/19/17 - Monitor H&H and transfuse as indicated. Cirrhosis The pt has a history of HCV s/p treatment. He has a history of GIB. - follow LFTs. - continue PPI. - hold Aldactone. - lactulose. Right lower extremity wound: Present on admission. Continue wound care PPx: SCDs; PPI Girma Cortes MD January 20, 2017 09:36
[2017-01-20] MEDS: LACTULOSE SYRUP 20 GM/30 ML CUP PO SCH ×4 (09:39→21:02)
[2017-01-20] MEDS: PANTOPRAZOLE SOD 40 MG DELAYED RELEASE TAB PO SCH (09:39)
[2017-01-20] MEDS: NS + KCL 20 MEQ INJ 1,000 ML IV SCH ×2 (10:07→21:17)
--- NOTE | 2017-01-20 15:02 | PD.CONS ---
HPI History of Present Illness This is a 66 year old [gentleman] whose brought him to ER for increasing confusion. Pt non contributory, hx obtained from EMR, . 4 days ago she noticed that he was more disoriented and confused, he was complaining of fatigue as well. He was found to be in acute renal failure and with increased ammonia. He had decreased appetite and was urinating alot. He does have hx cirrhosis and per is compliant with his lactulose which is BID at home. He has been having constipation. His last BM was tuesday. [facility] [place] [facility] [place] and normal. He had enteroscopy 05/2016 and had " lesions cauterized" after having GIB. He has lost 50lbs in the last year. She tries to feed him as much as she can and gives him ensure. He has not had ETOH in a year. No black stools, blood in stool, n/v, or complaints of pain. ( Cathie Richmond) PFSH Past Medical History Chronic hepatitis C, S/P Tx with Harvoni Liver cirrhosis HTN GERD PUD Chronic anemia Upper GI bleeding Gastritis Diverticulosis Hypersplenism Chronic thrombocytopenia Bilateral Cataracts Left knee surgery (Cathie Richmond) Coded Allergies: No Known Allergies (Unverified , 01/18/17) Family History Alzheimer's Parkinson's Social History No ETOH in a year, no tobacco or illicit drug use (Cathie Richmond) Review of Systems ROS pt non contributory (Cathie Richmond) GI Exam Vitals I&O Vital Signs Date Time Temp Pulse Resp B/P Pulse Ox O2 Delivery O2 Flow Rate FiO2 01/20/17 12:00 97.6 83 18 139/82 97 01/20/17 09:34 98 21 01/20/17 08:00 98.0 75 18 143/75 98 01/20/17 04:00 97.7 78 16 138/71 98 01/20/17 00:00 97.9 77 18 155/76 99 01/19/17 20:37 78 01/19/17 20:00 98.3 75 17 164/82 99 01/19/17 16:04 98.6 81 16 145/79 99 01/19/17 16:00 98.6 81 16 145/79 99 01/19/17 16:00 99.4 82 20 133/71 99 I/O 01/19/17 01/19/17 01/19/17 01/20/17 01/20/17 01/20/17 07:00 15:00 23:00 07:00 15:00 23:00 Intake Total 240 ml Output Total 400 ml 650 ml Balance -400 ml 240 ml -650 ml Intake Oral 240 ml Output Urine Total 400 ml 650 ml # Voids 1 3 1 4 Imaging Last Impressions Head CT 01/18/172112 Signed Impressions: Service Date/Time: Wednesday, January 18, 2017 21:53 - CONCLUSION: Negative noncontrast CT. Rio Byrd MD Chest X-Ray 01/18/172112 Signed Impressions: Service Date/Time: Wednesday, January 18, 2017 21:31 - CONCLUSION: No acute disease. Rio Byrd MD Laboratory Test 01/20/17 07:18 White Blood Count 6.0 TH/MM3 Red Blood Count 2.93 MIL/MM3 Hemoglobin 9.1 GM/DL Hematocrit 26.0 % Mean Corpuscular Volume 88.7 FL Mean Corpuscular Hemoglobin 31.0 PG Mean Corpuscular Hemoglobin 35.0 % Concent Red Cell Distribution Width 19.9 % Platelet Count 133 TH/MM3 Mean Platelet Volume 7.9 FL Sodium Level 145 MEQ/L Potassium Level 3.6 MEQ/L Chloride Level 115 MEQ/L Carbon Dioxide Level 20.2 MEQ/L Anion Gap 10 MEQ/L Blood Urea Nitrogen 61 MG/DL Creatinine 1.99 MG/DL Estimat Glomerular Filtration 34 ML/MIN Rate Random Glucose 90 MG/DL Calcium Level 8.6 MG/DL Total Bilirubin 4.5 MG/DL Direct Bilirubin 1.8 MG/DL Indirect Bilirubin 2.7 MG/DL Aspartate Amino Transf 55 U/L (AST/SGOT) Alanine Aminotransferase 25 U/L (ALT/SGPT) Alkaline Phosphatase 76 U/L Ammonia 110 MCMOL/L Total Protein 6.6 GM/DL Albumin 2.5 GM/DL Date/Time Procedure Status Source Growth 01/18/17 21:18 Aerobic Blood Culture - Preliminary Resulted Blood Peripheral NO GROWTH IN 2 DAYS 01/18/17 21:18 Anaerobic Blood Culture - Preliminary Resulted Blood Peripheral NO GROWTH IN 2 DAYS Physical Examination HEENT: EOMI; normocephalic; atraumatic; + icterus CHEST: CTA CARDIAC: RRR ABDOMEN: Soft, protuberant, nontender; bowel sounds are present in all four quadrants. EXTREMITIES: No clubbing, cyanosis, or edema. SKIN: Normal; no rash; + jaundice. 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 Tbil 4.5, AST 55. Hx HCV s/p Harvoni, successful. Will start xifaxan - ARV - creatinine 1.99, decreasing - anemia - 9.1, 26.0 improved from yesterday PLAN - xifaxan 550mg BID - continue lactulose QID - JIMI - supportive care This pt seen by myself and Dr Linder and this note is written on his behalf ( Cathie Richmond) Physician Comments Patient seen and examined Agree with above Continue with current supportive care Monitor labs We will also evaluate for cause of anemia will pursue an EGD GI bleed may have been the culprits and this exacerbation of encephalopathy and elevation of ammonia We will also obtain abdominal ultrasound and alpha-fetoprotein to further look for cause of decompensation (Luis Fernando Linder MD) Cathie Richmond January 20, 2017 15:02 Luis Fernando Linder MD January 20, 2017 18:22
[2017-01-20] MEDS: RIFAXIMIN 550 MG TAB PO SCH (21:02)
[2017-01-21] VITALS (8 sets, daily range): BP systolic 150–186; BP diastolic 74–83; PULSE 80–94; RESP 16–18; TEMP 97.9–99.5; O2SAT 96–100
[2017-01-21] MEDS: LACTULOSE SYRUP 20 GM/30 ML CUP PO SCH ×4 (09:00→19:42)
[2017-01-21 09:55] LABS: HEMATOCRIT 26.2 % (39.0-51.0); MEAN CELL VOLUME 89.9 FL (80.0-100.0); MEAN CORPUSCULAR HEMOGLOBIN 30.7 PG (27.0-34.0); MEAN CORPUSCULAR HGB CONC 34.2 % (32.0-36.0); PLATELET COUNT 128 TH/MM3 (150-450); RED BLOOD COUNT 2.92 MIL/MM3 (4.50-5.90); RED CELL DISTRIBUTION WIDTH 20.4 % (11.6-17.2); REVIEW FLAG FINAL; WHITE BLOOD COUNT 6.4 TH/MM3 (4.0-11.0)
[2017-01-21 10:12] LABS: BICARBONATE 17.6 MEQ/L (21.0-32.0); POTASSIUM 3.5 MEQ/L (3.5-5.1); TOTAL BILIRUBIN ADULT 3.3 MG/DL (0.2-1.0)
[2017-01-21] MEDS ORDERED: PROPOFOL 200 MG/20 ML AMP IV ONE (10:13)
--- NOTE | 2017-01-21 10:27 | PD.PROCEDR ---
GI Procedure REFERRING PHYSICIAN Luciano PROCEDURE PERFORMED EGD with biopsy INDICATION FOR PROCEDURE Anemia with history of cirrhosis PROCEDURE: The procedure, risks and benefits were discussed with Mr. Beckford and informed consent was obtained. Anesthesia sedated him with Diprivan. He was placed in the left lateral decubitus position. EGD: The Pentax videoscope was introduced through the oropharynx and advanced to the second portion of the duodenum under direct visualization. Retroflexion was performed in the stomach. FINDINGS: The esophagus there was distal esophageal erythemic Street with a superficial ulceration consistent with reflux esophagitis LA grade a also noted were grade 1 esophageal varices with no stigmata of recent bleeding no biopsies were taken The stomach there was mild to moderate portal hypertensive gastropathy with significant edema and a deep ulcer in the antrum but this was with a clean base no visible vessel the edges were biopsied no gastric varices were noted no blood or bleeding The duodenum there was a duodenal bulb superficial ulceration again clean base no visible vessel otherwise duodenal mucosa was unremarkable ESTIMATED BLOOD LOSS: None SPECIMENS REMOVED: Antral biopsy COMPLICATIONS: None IMPRESSION: Reflux Esophagitis Portal hypertensive gastropathy Antral ulcer and duodenal ulcer PLAN: Await biopsy Recommend PPI Avoid aspirin and NSAIDs EGD in 2 months Continue with current supportive care Monitor labs Luis Fernando Linder MD January 21, 2017 10:26
--- NOTE | 2017-01-21 11:26 | HHI.PR ---
Subjective Remarks Patient is doing much better today. He had a large bowel movement yesterday that was stopped. He was Hemoccult positive and GI was consulted. He has since underwent endoscopy which found esophagitis, gastropathy, antral and duodenal clean base ulcers. H&H stable this morning. He is awake and alert. Objective Vitals Vital Signs Date Time Temp Pulse Resp B/P Pulse Ox O2 Delivery O2 Flow Rate FiO2 01/21/17 10:43 74 18 145/74 100 01/21/17 10:33 77 18 135/71 100 01/21/17 10:23 97.8 67 18 113/69 100 01/21/17 10:00 01/21/17 08:00 98.5 81 18 154/74 100 01/21/17 07:27 86 01/21/17 04:00 98.1 80 16 150/79 96 01/21/17 00:00 97.9 83 16 168/83 96 01/20/17 21:00 97 01/20/17 20:00 98.4 95 18 156/78 100 01/20/17 16:00 96.8 82 18 149/78 97 01/20/17 12:00 97.6 83 18 139/82 97 I/O 01/20/17 01/20/17 01/20/17 01/21/17 01/21/17 01/21/17 07:00 15:00 23:00 07:00 15:00 23:00 Intake Total 600 ml 1496 ml 1233 ml 400 ml Output Total 650 ml 300 ml 400 ml Balance -50 ml 1496 ml 933 ml 0 ml Intake Oral 600 ml 480 ml 480 ml IV Total 1016 ml 753 ml Other 400 ml Output Urine Total 650 ml 300 ml 400 ml # Voids 4 1 1 # Bowel Movements 0 1 1 Result Diagram: 01/21/17 0929 01/21/17 0929 Imaging Last Impressions Abdomen Ultrasound 01/21/17 0000 Signed Impressions: Service Date/Time: Saturday, January 21, 2017 11:22 - CONCLUSION: 1. Probable liver cirrhosis. Mild ascites. 2. Gallbladder sludge with some gallbladder wall thickening and pericholecystic fluid which can be seen with liver disease and ascites. Common bile duct measures 6 mm. Js Carranza MD Head CT 01/18/173 Signed Impressions: Service Date/Time: Wednesday, January 18, 2017 21:53 - CONCLUSION: Negative noncontrast CT. Rio Byrd MD Chest X-Ray 01/18/173 Signed Impressions: Service Date/Time: Wednesday, January 18, 2017 21:31 - CONCLUSION: No acute disease. Rio Byrd MD Objective Remarks GENERAL: Chronically ill-appearing male in no acute distress. CARDIOVASCULAR: Normal rate and regular rhythm without murmurs, gallops, or rubs. RESPIRATORY: Good respiratory efforts. Breath sounds equal and clear to auscultation bilaterally. GASTROINTESTINAL: Abdomen soft, non-tender, mild distention. Normal active bowel sounds MUSCULOSKELETAL: Extremities without cyanosis, or edema. SKIN: RLE dime size wound appear to be healing. NEURO: Awake and alert. Moves all ext x4 PSYCH: Calm A/P Problem List: (1) Acute hepatic encephalopathy ICD Code: K72.00 Status: Acute (2) Cirrhosis ICD Code: K74.60 Status: Chronic (3) Symptomatic anemia ICD Code: D64.9 Status: Acute (4) Renal failure ICD Code: N19 Status: Acute (5) HTN (hypertension) ICD Code: I10 Status: Chronic Assessment and Plan 66-year-old male with Acute hepatic encephalopathy: Took a while to respond to lactulose. Patient has been on twice daily dosing at home. - Appreciate GI following - Continue lactulose 4 times a day dosing. Rifaximin 550 mg twice a day -Advance diet as tolerated, IV fluid - neuro checks. GI bleeding: Hemoccult positive. Appreciate GI following, status post EGD which showed reflux esophagitis, gastropathy, antral and duodenal ulcers Continue PPI Acute renal failure: Improving Possibly secondary to diuretic use and decreased by mouth intake. - Hold Aldactone. - IV fluids. - Monitor BMP and avoid nephrotoxic agents. Acute on chronic anemia: s/p 2 units transfusion of PRBC on 01/19/17 - Monitor H&H and transfuse as indicated. Cirrhosis The pt has a history of HCV s/p treatment. He has a history of GIB. - follow LFTs. - continue PPI. - hold Aldactone. -Continue lactulose and rifaximin Right lower extremity wound: Present on admission. Continue wound care PPx: SCDs; PPI Girma Cortes MD January 21, 2017 11:26
[2017-01-21] MEDS: PANTOPRAZOLE SOD 40 MG DELAYED RELEASE TAB PO SCH (11:46)
[2017-01-21] MEDS: DOCUSATE SODIUM 100 MG CAP PO SCH ×2 (11:46→19:42)
[2017-01-21] MEDS: RIFAXIMIN 550 MG TAB PO SCH ×2 (11:46→19:42)
[2017-01-21] MEDS: SODIUM CHLORIDE 0.9% FLUSH 10 ML FLUSH IV FLUSH SCH ×2 (11:55→19:42)
--- NOTE | 2017-01-21 12:16 | RADRPT ---
EXAM DATE/TIME: 01/21/2017 11:22 [place] COMPARISON: No previous studies available for comparison. INDICATIONS : Abdominal pain. MEDICAL HISTORY : Hepatitis C. Hypertension. Dyspnea. Hiatal hernia. GERD. Renal disease. Cirrhosis. GI bleed. Duod enal ulcer. Gastric ulcer. Esophagitis. Esophageal varices. SURGICAL HISTORY : Bilateral cataract eye surgery. Left knee surgery. Endoscopy. ENCOUNTER: Initial ACUITY: 1 day PAIN SCORE: 0/10 LOCATION: Bilateral upper quadrant MEASUREMENTS: LIVER: 12.0 cm length COMMON DUCT: 6 mm RIGHT KIDNEY: 10.9 x 5.9 x 6.9 cm LEFT KIDNEY: 10.3 x 5.6 x 6.1 cm SPLEEN: 11.6 cm length AORTA: 1.7cm maximal FINDINGS: Liver is diminished in size and echogenic most characteristic of liver cirrhosis. Mild to moderate as cites. Positive gallbladder sludge present with a small amount of pericholecystic fluid or gallbladde r wall thickening present. No hydronephrosis. Spleen, aorta and IVC unremarkable. No focal pancreatic abnormality. CONCLUSION: 1. Probable liver cirrhosis. Mild ascites. 2. Gallbladder sludge with some gallbladder wall thickening and pericholecystic fluid which can be se en with liver disease and ascites. Common bile duct measures 6 mm. Js Carranza MD on January 21, 2017 at 12:12 Board Certified Radiologist. This report was verified electronically.
[2017-01-21] MEDS: NS + KCL 20 MEQ INJ 1,000 ML IV SCH ×2 (15:45→16:35)
[2017-01-22] VITALS (7 sets, daily range): BP systolic 121–153; BP diastolic 71–88; PULSE 75–90; RESP 16–20; TEMP 96.5–99.2; O2SAT 95–100
[2017-01-22] MEDS: NS + KCL 20 MEQ INJ 1,000 ML IV SCH ×3 (01:36→21:45)
[2017-01-22] MEDS: LACTULOSE SYRUP 20 GM/30 ML CUP PO SCH ×4 (08:37→19:38)
[2017-01-22] MEDS: RIFAXIMIN 550 MG TAB PO SCH ×2 (08:37→19:37)
[2017-01-22] MEDS: SODIUM CHLORIDE 0.9% FLUSH 10 ML FLUSH IV FLUSH SCH ×2 (08:38→19:38)
[2017-01-22] MEDS: DOCUSATE SODIUM 100 MG CAP PO SCH ×2 (08:38→19:39)
[2017-01-22] MEDS: PANTOPRAZOLE SOD 40 MG DELAYED RELEASE TAB PO SCH (08:38)
--- NOTE | 2017-01-22 09:13 | HHI.PR ---
Subjective Remarks Patient reports he is feeling better today. He had 3 bowel movements yesterday. He denies abdominal pain, nausea or vomiting. Objective Vitals Vital Signs Date Time Temp Pulse Resp B/P Pulse Ox O2 Delivery O2 Flow Rate FiO2 01/22/17 04:00 98.5 83 16 151/71 99 01/22/17 00:00 98.1 87 16 153/75 100 01/21/17 21:00 92 01/21/17 20:00 99.5 94 18 160/77 100 01/21/17 16:00 98.3 88 18 163/81 100 01/21/17 12:00 98.3 83 18 186/82 100 01/21/17 10:43 74 18 145/74 100 01/21/17 10:33 77 18 135/71 100 01/21/17 10:23 97.8 67 18 113/69 100 01/21/17 10:00 I/O 01/21/17 01/21/17 01/21/17 01/22/17 01/22/17 01/22/17 07:00 15:00 23:00 07:00 15:00 23:00 Intake Total 1233 ml 1000 ml 628 ml 1604 ml Output Total 300 ml 400 ml 270 ml 240 ml Balance 933 ml 600 ml 358 ml 1364 ml Intake Oral 480 ml 600 ml 960 ml IV Total 753 ml 628 ml 644 ml Other 400 ml Output Urine Total 300 ml 400 ml 270 ml 240 ml # Voids 3 # Bowel Movements 1 1 Result Diagram: 01/21/1729 01/21/17928 Objective Remarks GENERAL: Chronically ill-appearing male in no acute distress. CARDIOVASCULAR: Normal rate and regular rhythm without murmurs, gallops, or rubs. RESPIRATORY: Good respiratory efforts. Breath sounds equal and clear to auscultation bilaterally. GASTROINTESTINAL: Abdomen soft, non-tender, mild distention. Normal active bowel sounds. Umbilical hernia present. MUSCULOSKELETAL: Extremities without cyanosis, or edema. SKIN: RLE dime size wound appear to be healing. NEURO: Awake and alert. Moves all ext x4 PSYCH: Calm A/P Problem List: (1) Acute hepatic encephalopathy ICD Code: K72.00 Status: Acute (2) Cirrhosis ICD Code: K74.60 Status: Chronic (3) Symptomatic anemia ICD Code: D64.9 Status: Acute (4) Renal failure ICD Code: N19 Status: Acute (5) HTN (hypertension) ICD Code: I10 Status: Chronic Assessment and Plan 66-year-old male with Acute hepatic encephalopathy: Improving. Took a while to respond to lactulose. Patient has been on twice daily dosing at home. He is improving with QID dosing and Rifaximan - Appreciate GI following - Continue lactulose 4 times a day dosing. Rifaximin 550 mg twice a day - Advance diet, IV fluid - neuro checks. GI bleeding: Hemoccult positive. Appreciate GI following, status post EGD which showed reflux esophagitis, gastropathy, antral and duodenal ulcers Continue PPI. Avoid NSAIDS Acute renal failure: Improving Possibly secondary to diuretic use and decreased by mouth intake. -New to hold Aldactone. - IV fluids. - Monitor BMP and avoid nephrotoxic agents. Labs pending today. Will be reviewed once available. Acute on chronic anemia: s/p 2 units transfusion of PRBC on 01/19/17 - Monitor H&H and transfuse as indicated. Cirrhosis The pt has a history of HCV s/p treatment. He has a history of GIB. - follow LFTs. - continue PPI. - hold Aldactone. -Continue lactulose and rifaximin Right lower extremity wound: Present on admission. Continue wound care PPx: SCDs; PPI Discharge Planning Plan to discharge tomorrow if he continues to improve. Girma Cortes MD January 22, 2017 09:13
--- NOTE | 2017-01-22 10:24 | HHI.GIFU ---
Subjective Remarks Pt feeling much better today reports that he is back to his baseline mental status. He complains about his reducible umbilical hernia and not having his belt for this. Afebrile. (Yancy Joyner) Objective Vitals I&O Vital Signs Date Time Temp Pulse Resp B/P Pulse Ox O2 Delivery O2 Flow Rate FiO2 01/22/17 08:00 97.8 75 19 149/71 100 01/22/17 04:00 98.5 83 16 151/71 99 01/22/17 00:00 98.1 87 16 153/75 100 01/21/17 21:00 92 01/21/17 20:00 99.5 94 18 160/77 100 01/21/17 16:00 98.3 88 18 163/81 100 01/21/17 12:00 98.3 83 18 186/82 100 01/21/17 10:43 74 18 145/74 100 01/21/17 10:33 77 18 135/71 100 01/21/17 10:23 97.8 67 18 113/69 100 I/O 01/21/17 01/21/17 01/21/17 01/22/17 01/22/17 01/22/17 07:00 15:00 23:00 07:00 15:00 23:00 Intake Total 1233 ml 1000 ml 628 ml 1604 ml Output Total 300 ml 400 ml 270 ml 240 ml Balance 933 ml 600 ml 358 ml 1364 ml Intake Oral 480 ml 600 ml 960 ml IV Total 753 ml 628 ml 644 ml Other 400 ml Output Urine Total 300 ml 400 ml 270 ml 240 ml # Voids 3 # Bowel Movements 1 1 Laboratory Date/Time Procedure Status Source Growth 01/21/17 00:23 Stool Occult Blood (MOISÉS) - Final Complete Stool Stool HEMOCCULT POSITIVE 01/18/17 21:18 Aerobic Blood Culture - Preliminary Resulted Blood Peripheral NO GROWTH IN 3 DAYS 01/18/17 21:18 Anaerobic Blood Culture - Preliminary Resulted Blood Peripheral NO GROWTH IN 3 DAYS Imaging Last Impressions Abdomen Ultrasound 01/21/17 0000 Signed Impressions: Service Date/Time: Saturday, January 21, 2017 11:22 - CONCLUSION: 1. Probable liver cirrhosis. Mild ascites. 2. Gallbladder sludge with some gallbladder wall thickening and pericholecystic fluid which can be seen with liver disease and ascites. Common bile duct measures 6 mm. Js Carranza MD Head CT 01/18/172112 Signed Impressions: Service Date/Time: Wednesday, January 18, 2017 21:53 - CONCLUSION: Negative noncontrast CT. Rio Byrd MD Chest X-Ray 01/18/172112 Signed Impressions: Service Date/Time: Wednesday, January 18, 2017 21:31 - CONCLUSION: No acute disease. Rio Byrd MD Physical Exam GENERAL: NAD, AAOx3 CHEST: CTA CARDIAC: Regular ABDOMEN: +BS, soft, nondistended, nontender EXTREMITIES: No clubbing, cyanosis, or edema. Bandages on right ankle are c/d/i (Yancy Joyner) Assessment and Plan Plan ASSESSMENT - Hepatic encephalopathy. Pt has liver cirrhosis secondary to Hepatitis C s/p [facility] He was admitted with acute hepatic encephalopathy and was noted to be anemic with worsening H/ H and Hemoccult positive stool. Pt underwent evaluation with EGD (01/21/17) --> reflux esophagitis, portal hypertensive gastropathy, and an antral ulcer and duodenal ulcer. The pts GI bleed may have been the culprit for this exacerbation of encephalopathy and elevation of ammonia. GB US (01/21 ) --> Probable liver cirrhosis. Mild ascites. Gallbladder sludge with some gallbladder wall thickening and pericholecystic fluid which can be seen with liver disease and ascites. Common bile duct measures 6 mm. Ammonia level is improving to 52 (01/21). Encephalopathy is improving. Cont. Lactulose 30mL QID. Xifaxan 550mg po BID. - Liver cirrhosis with Hx HCV s/p Harvoni, successful. LFTs are improving. Cont. Lactulose and Xifaxan. - Acute anemia/GIB. Pt was transfused with 2 units PRBCs on 01/19. EGD (01/21/17) --> reflux esophagitis, portal hypertensive gastropathy, and an antral ulcer and duodenal ulcer. PPI. H/H 9.0/26.2 (01/21), stable. - ARF, thought to be secondary to diuretic therapy and decreased by mouth intake. Pt has been on Aldactone for a few months but was not eating well prior to admission. Labs are improving. IVF. Management per attending. PLAN - Cont. Protonix 40mg po daily. - Cont. Xifaxan 550mg BID and Lactulose QID - Monitor H/H closely - No NSAIDs - Pathology pending, call be followed up as an outpt. - EGD in 2 months as an outpt - JIMI - Supportive care - The pt was seen and examined by myself and Dr Ayoub and this note is written on his behalf. (Yancy Joyner) Physician Comments Seen and examined, plan as above, will need Liver transplant evaluation after discharge and once stable. Will follow up with you. (Gi Ayoub MD) Yancy Joyner January 22, 2017 10:24 Gi Ayoub MD January 22, 2017 12:03
[2017-01-22 10:28] LABS: HEMATOCRIT 25.3 % (39.0-51.0); MEAN CELL VOLUME 90.4 FL (80.0-100.0); MEAN CORPUSCULAR HEMOGLOBIN 31.2 PG (27.0-34.0); MEAN CORPUSCULAR HGB CONC 34.5 % (32.0-36.0); PLATELET COUNT 137 TH/MM3 (150-450); RED CELL DISTRIBUTION WIDTH 20.6 % (11.6-17.2); REVIEW FLAG FINAL; WHITE BLOOD COUNT 6.7 TH/MM3 (4.0-11.0)
[2017-01-22 10:56] LABS: ALKALINE PHOSPHATASE 81 U/L (45-117); ALT (GPT) 32 U/L (12-78); ANION GAP 9 MEQ/L (5-15); AST (GOT) 58 U/L (15-37); BICARBONATE 19.4 MEQ/L (21.0-32.0); BLOOD UREA NITROGEN 21 MG/DL (7-18); CHLORIDE 111 MEQ/L (98-107); GLOMERULAR FILTRATION RATE 52 ML/MIN (>89); POTASSIUM 3.8 MEQ/L (3.5-5.1); SODIUM (NA) 139 MEQ/L (136-145); TOTAL BILIRUBIN ADULT 2.3 MG/DL (0.2-1.0)
[2017-01-22] MEDS ORDERED: TEMAZEPAM 7.5 MG CAP PO ONE (22:45)
[2017-01-23] MEDS ORDERED: ONDANSETRON HCL 4 MG/2 ML VIAL IV PUSH PRN
[2017-01-23 05:00] VITALS: BP 142/74; PULSE 92; RESP 17; TEMP 97.4; O2SAT 98
[2017-01-23 06:07] LABS: AUTOMATED NEUTROPHIL # 3.3 TH/MM3 (1.8-7.7); BASOPHIL % 0.6 % (0.0-2.0); EOSINOPHIL # 0.3 TH/MM3 (0-0.4); EOSINOPHIL % 6.1 % (0.0-4.0); HEMATOCRIT 22.3 % (39.0-51.0); HEMO FLAGS DIFF FINAL; LYMPH % 24.4 % (9.0-44.0); LYMPHOCYTE # 1.4 TH/MM3 (1.0-4.8); MEAN CELL VOLUME 91.1 FL (80.0-100.0); MONO % 11.8 % (0.0-8.0); NEUT % 57.1 % (16.0-70.0); PLATELET COUNT 105 TH/MM3 (150-450); RED BLOOD COUNT 2.45 MIL/MM3 (4.50-5.90); RED CELL DISTRIBUTION WIDTH 20.7 % (11.6-17.2); WHITE BLOOD COUNT 5.7 TH/MM3 (4.0-11.0)
[2017-01-23 06:49] LABS: ALKALINE PHOSPHATASE 73 U/L (45-117); ALT (GPT) 28 U/L (12-78); ANION GAP 7 MEQ/L (5-15); AST (GOT) 46 U/L (15-37); BICARBONATE 19.7 MEQ/L (21.0-32.0); BLOOD UREA NITROGEN 17 MG/DL (7-18); CHLORIDE 113 MEQ/L (98-107); GLOMERULAR FILTRATION RATE 62 ML/MIN (>89); SODIUM (NA) 140 MEQ/L (136-145); TOTAL BILIRUBIN ADULT 2.1 MG/DL (0.2-1.0)
[2017-01-23 08:00] VITALS: BP 128/61; PULSE 73; RESP 20; TEMP 97.8; O2SAT 97
[2017-01-23] MEDS: NS + KCL 20 MEQ INJ 1,000 ML IV SCH (08:13)
[2017-01-23] MEDS: SODIUM CHLORIDE 0.9% FLUSH 10 ML FLUSH IV FLUSH SCH (08:14)
[2017-01-23] MEDS: LACTULOSE SYRUP 20 GM/30 ML CUP PO SCH ×3 (08:14→17:26)
[2017-01-23] MEDS: PANTOPRAZOLE SOD 40 MG DELAYED RELEASE TAB PO SCH (08:14)
[2017-01-23] MEDS: RIFAXIMIN 550 MG TAB PO SCH (08:14)
[2017-01-23] MEDS: DOCUSATE SODIUM 100 MG CAP PO SCH (08:14)
--- NOTE | 2017-01-23 09:47 | HHI.PR ---
Subjective Remarks Follow-up for GI bleed and encephalopathy Patient stated that he has not had any blood in his stools. Patient stated that when he walks he still feels unbalanced and does not feel safe to go home. Mental status has improved drastically. Patient stated that he has chronic pain at his hernia site. He stated that this has not worsened. Patient's nurse is at the bedside. Objective Vitals Vital Signs Date Time Temp Pulse Resp B/P Pulse Ox O2 Delivery O2 Flow Rate FiO2 01/23/17 08:00 97.8 73 20 128/61 97 01/23/17 05:00 97.4 92 17 142/74 98 01/23/17 00:00 01/22/17 21:00 89 01/22/17 20:00 99.2 88 17 144/88 99 01/22/17 16:00 96.5 90 20 96 01/22/17 12:00 97.5 86 18 121/79 95 I/O 01/22/17 01/22/17 01/22/17 01/23/17 01/23/17 01/23/17 07:00 15:00 23:00 07:00 15:00 23:00 Intake Total 1604 ml 2123 ml 992 ml Output Total 240 ml 400 ml Balance 1364 ml -400 ml 2123 ml 992 ml Intake Oral 960 ml 480 ml 240 ml IV Total 644 ml 1643 ml 752 ml Output Urine Total 240 ml 400 ml # Voids 3 1 # Bowel Movements 1 1 1 Result Diagram: 01/23/17 0547 01/23/17 0545 Objective Remarks GENERAL: Chronically ill-appearing male in no acute distress. CARDIOVASCULAR: Normal rate and regular rhythm without murmurs, gallops, or rubs. RESPIRATORY: Good respiratory efforts. Breath sounds equal and clear to auscultation bilaterally. GASTROINTESTINAL: Abdomen soft, non-tender, mild distention. Normal active bowel sounds. Umbilical hernia present. MUSCULOSKELETAL: Extremities without cyanosis, or edema. SKIN: RLE dime size wound appear to be healing. NEURO: Awake and alert. Moves all ext x4 PSYCH: Calm Medications and IVs Current Medications IV Flush 2 ml 2 ml UNSCH PRN IV FLUSH FLUSH AFTER USING IV ACCESS; Start at 21:15; Stop 01/19/17 at 01:46; Status DC Sodium Chloride (NS 1000 ml Inj) 1,000 ml @ 1,000 mls/hr Q1H IV Last administered on 01/18/17 21:24; Start 01/18/17 at 21:13; Stop 01/18/17 at 22:12 ; Status DC Lactulose 30 ml 30 ml QID PO Last administered on 01/23/17 08:14; Start at 01:00 Sodium Chloride (NS 1000 ml Inj) 1,000 ml @ 100 mls/hr Q10H IV Last administered on 01/19/17 02:17; Start 01/19/17 at 00:58; Stop 01/19/17 at 10:57 ; Status DC Sodium Chloride (NS Flush) 2 ml UNSCH PRN IV FLUSH FLUSH AFTER USING IV ACCESS ; Start 01/19/17 at 01:00 Sodium Chloride (NS Flush) 2 ml BID IV FLUSH Last administered on 01/23/17 08: 14; Start 01/19/17 at 09:00 Acetaminophen (Tylenol) 650 mg Q4H PRN PO TEMP > 100.4; Start 01/19/17 at 01:00 Docusate Sodium (Colace) 100 mg Q12H PO Last administered on 01/23/17 08:14; Start 01/19/17 at 09:00 Sennosides (Senokot) 17.2 mg Q12H PRN PO CONSTIPATION; Start 01/19/17 at 01:00 Acetaminophen (Tylenol) 650 mg Q6H PRN PO PAIN SCALE 1 TO 2; Start 01/19/17 at 01:00 Naloxone HCl (Narcan Inj) 0.4 mg UNSCH PRN IV SEE LABEL COMMENTS; Start at 01:00 Pantoprazole Sodium 40 mg 40 mg DAILY PO Last administered on 01/23/17 08:14; Start 01/19/17 at 09:00 Sodium Chloride 250 ml @ 15 mls/hr ONCE ONCE IV Last administered on 12:50; Start 01/19/17 at 08:30; Stop 01/20/17 at 01:09; Status DC Potassium Chloride/Sodium Chloride (NS + KCl 20 Meq Inj) 1,000 ml @ 100 mls/hr Q10H IV Last administered on 01/23/17 08:13; Start 01/20/17 at 09:45 Rifaximin (Xifaxan) 550 mg BID PO Last administered on 01/23/17 08:14; Start 01/20/17 at 21:00 Propofol (Diprivan 200 Mg/20 ml Inj) 160 mg STK-MED ONCE IV ; Start 01/21/17 at 10:13; Stop 01/21/17 at 10:29; Status DC Temazepam (Restoril) 7.5 mg ONCE ONCE PO Last administered on 01/22/17 23:32 ; Start 01/22/17 at 22:45; Stop 01/22/17 at 22:46; Status DC Ondansetron HCl (Zofran Inj) 4 mg Q6HR PRN IV PUSH NAUSEA OR VOMITING; Start at 00:00 A/P Problem List: (1) Acute hepatic encephalopathy ICD Code: K72.00 Status: Acute (2) Cirrhosis ICD Code: K74.60 Status: Chronic (3) Symptomatic anemia ICD Code: D64.9 Status: Acute (4) Renal failure ICD Code: N19 Status: Acute (5) HTN (hypertension) ICD Code: I10 Status: Chronic Assessment and Plan 66-year-old male with Acute hepatic encephalopathy: -Seems to be back to his baseline. -On lactulose QID and Rifaximan - Appreciate GI following - Continue lactulose 4 times a day dosing. Rifaximin 550 mg twice a day - Advance diet, IV fluid - neuro checks. GI bleeding: Hemoccult positive. Appreciate GI following, status post EGD which showed reflux esophagitis, gastropathy, antral and duodenal ulcers Continue PPI. Avoid NSAIDS -Hemoglobin decrease will need to repeat hemoglobin at 12. Acute renal failure: -Resolved. -Possibly secondary to diuretic use and decreased by mouth intake. -Restart spironolactone. Continue to monitor. - IV fluids. Acute on chronic anemia: s/p 2 units transfusion of PRBC on 01/19/17 - Hemoglobin decrease. Will need to continue to monitor. Cirrhosis The pt has a history of HCV s/p treatment. He has a history of GIB. - follow LFTs. - continue PPI. - hold Aldactone. -Continue lactulose and rifaximin Right lower extremity wound: Present on admission. Continue wound care PPx: SCDs; PPI Discharge Planning Hemoglobin continues to decrease so will need to trend. Will also need to consult physical therapist since patient is unsteady on his feet. d/w patient and his nurse at the bedside. Angie Marquez MD January 23, 2017 09:47
[2017-01-23 12:00] VITALS: BP 146/77; PULSE 88; RESP 20; TEMP 97.9; O2SAT 100
--- NOTE | 2017-01-23 14:28 | HHI.GIFU ---
Subjective Remarks No blood or dark stools and any other bleeding, tolerating diet well. Objective Vitals I&O Vital Signs Date Time Temp Pulse Resp B/P Pulse Ox O2 Delivery O2 Flow Rate FiO2 01/23/17 12:00 97.9 88 20 146/77 100 01/23/17 08:00 97.8 73 20 128/61 97 01/23/17 05:00 97.4 92 17 142/74 98 01/23/17 00:00 01/22/17 21:00 89 01/22/17 20:00 99.2 88 17 144/88 99 01/22/17 16:00 96.5 90 20 96 I/O 01/22/17 01/22/17 01/22/17 01/23/17 01/23/17 01/23/17 07:00 15:00 23:00 07:00 15:00 23:00 Intake Total 1604 ml 2123 ml 992 ml Output Total 240 ml 400 ml Balance 1364 ml -400 ml 2123 ml 992 ml Intake Oral 960 ml 480 ml 240 ml IV Total 644 ml 1643 ml 752 ml Output Urine Total 240 ml 400 ml # Voids 3 1 # Bowel Movements 1 1 1 Laboratory Laboratory Tests Test 01/23/17 01/23/17 05:45 05:47 Sodium Level 140 Potassium Level 4.0 Chloride Level 113 Carbon Dioxide Level 19.7 Anion Gap 7 Blood Urea Nitrogen 17 Creatinine 1.17 Estimat Glomerular Filtration 62 Rate Random Glucose 91 Calcium Level 7.5 Total Bilirubin 2.1 Aspartate Amino Transf 46 (AST/SGOT) Alanine Aminotransferase 28 (ALT/SGPT) Alkaline Phosphatase 73 Total Protein 5.5 Albumin 2.0 White Blood Count 5.7 Red Blood Count 2.45 Hemoglobin 7.6 Hematocrit 22.3 Mean Corpuscular Volume 91.1 Mean Corpuscular Hemoglobin 31.0 Mean Corpuscular Hemoglobin 34.0 Concent Red Cell Distribution Width 20.7 Platelet Count 105 Mean Platelet Volume 7.9 Neutrophils (%) (Auto) 57.1 Lymphocytes (%) (Auto) 24.4 Monocytes (%) (Auto) 11.8 Eosinophils (%) (Auto) 6.1 Basophils (%) (Auto) 0.6 Neutrophils # (Auto) 3.3 Lymphocytes # (Auto) 1.4 Monocytes # (Auto) 0.7 Eosinophils # (Auto) 0.3 Basophils # (Auto) 0.0 CBC Comment DIFF FINAL Differential Comment Ammonia 52 Date/Time Procedure Status Source Growth 01/21/17 00:23 Stool Occult Blood (MOISÉS) - Final Complete Stool Stool HEMOCCULT POSITIVE 01/18/17 21:18 Aerobic Blood Culture - Final Complete Blood Peripheral NO GROWTH IN 5 DAYS 01/18/17 21:18 Anaerobic Blood Culture - Final Complete Blood Peripheral NO GROWTH IN 5 DAYS Physical Exam GENERAL: NAD, AAOx3 CHEST: CTA CARDIAC: Regular ABDOMEN: +BS, soft, nondistended, nontender EXTREMITIES: No clubbing, cyanosis, or edema. Bandages on right ankle are c/d/i Assessment and Plan Plan ASSESSMENT - Hepatic encephalopathy. Pt has liver cirrhosis secondary to Hepatitis C s/p treatment [facility] He was admitted with acute hepatic encephalopathy and was noted to be anemic with worsening H/ H and Hemoccult positive stool. Pt underwent evaluation with EGD (01/21/17) --> reflux esophagitis, portal hypertensive gastropathy, and an antral ulcer and duodenal ulcer. The pts GI bleed may have been the culprit for this exacerbation of encephalopathy and elevation of ammonia. GB US (01/21 ) --> Probable liver cirrhosis. Mild ascites. Gallbladder sludge with some gallbladder wall thickening and pericholecystic fluid which can be seen with liver disease and ascites. Common bile duct measures 6 mm. Ammonia level is improving to 52 (01/21). Encephalopathy is improving. Cont. Lactulose 30mL QID. Xifaxan 550mg po BID. - Liver cirrhosis with Hx HCV s/p Harvoni, successful. LFTs are improving. Cont. Lactulose and Xifaxan. - Acute anemia/GIB. Pt was transfused with 2 units PRBCs on 01/19. EGD (01/21/17) --> reflux esophagitis, portal hypertensive gastropathy, and an antral ulcer and duodenal ulcer. PPI. H/H 9.0/.2 (01/21), stable. - ARF, thought to be secondary to diuretic therapy and decreased by mouth intake. Pt has been on Aldactone for a few months but was not eating well prior to admission. Labs are improving. IVF. Management per attending. PLAN - Cont. Protonix 40mg po daily. - Xifaxan 550mg BID and Lactulose QID - Monitor H/H closely - No NSAIDs - Pathology pending, call be followed up as an outpt. - EGD in 2 months as an outpt - JIMI - Liver transplant evaluation after discharge. - Supportive care - Will follow up with Gi Stinson MD January 23, 2017 14:28
[2017-01-23 16:00] VITALS: BP 157/86; PULSE 96; RESP 14; TEMP 98.2; O2SAT 99
[2017-01-23] MEDS ORDERED: Lactulose Liq PO (17:20)
[2017-01-23] MEDS ORDERED: PROT40TA PO (17:20)
[2017-01-23] MEDS ORDERED: XIFA550T4 PO (17:20)
[2017-01-23] MEDS ORDERED: ALDA50TA2 PO (17:20)
--- NOTE | 2017-01-23 17:21 | HHI.DS ---
Discharge Summary Admission Date January 18, 2017 at 22:26 Discharge Date: January 25, 2017 Admitting Diagnosis Acute Renal failure (1) Acute hepatic encephalopathy ICD Code: K72.00 Diagnosis: Principal (2) Cirrhosis ICD Code: K74.60 Diagnosis: Principal (3) Symptomatic anemia ICD Code: D64.9 Diagnosis: Principal (4) Renal failure ICD Code: N19 Diagnosis: Principal (5) HTN (hypertension) ICD Code: I10 Diagnosis: Secondary Procedures see HPI Brief History - From Admission The patient is a 66-year-old male with a past medical history of liver disease who is presenting to the hospital with confusion. Per reports the patient's stated that the patient has been acting abnormal since Tuesday. He has been confused and forgetting things that he normally knows. In the emergency department he was calm but was unable to maintain a coherent dialogue. He did not indicate that he was in any discomfort. Per report the patient had an ammonia checked at the [facility] that was normal. He is on lactulose as an outpatient. In the emergency department he was found to be in acute renal failure along with having an elevated ammonia level of 81. The patient appeared lethargic but was able to respond to questions with prompting. CBC/BMP: 01/23/17 1544 01/23/17 0545 Significant Findings Laboratory Tests Test 01/21/17 01/22/17 01/23/17 01/23/17 09:29 08:45 05:45 05:47 Red Blood Count 2.92 MIL/MM3 2.80 MIL/MM3 2.45 MIL/MM3 (4.50-5.90) (4.50-5.90) (4.50-5.90) Hemoglobin 9.0 GM/DL 8.7 GM/DL 7.6 GM/DL (13.0-17.0) (13.0-17.0) (13.0-17.0) Hematocrit 26.2 % 25.3 % 22.3 % (39.0-51.0) (39.0-51.0) (39.0-51.0) Red Cell Distribution Width 20.4 % 20.6 % 20.7 % (11.6-17.2) (11.6-17.2) (11.6-17.2) Platelet Count 128 TH/MM3 137 TH/MM3 105 TH/MM3 (150-450) (150-450) (150-450) Chloride Level 113 MEQ/L 111 MEQ/L 113 MEQ/L (98-107) (98-107) (98-107) Carbon Dioxide Level 17.6 MEQ/L 19.4 MEQ/L 19.7 MEQ/L (21.0-32.0) (21.0-32.0) (21.0-32.0) Blood Urea Nitrogen 30 MG/DL (7-18) 21 MG/DL (7-18) Creatinine 1.40 MG/DL 1.37 MG/DL (0.60-1.30) (0.60-1.30) Estimat Glomerular Filtration 51 ML/MIN (>89) 52 ML/MIN (>89) 62 ML/MIN (>89) Rate Calcium Level 8.2 MG/DL 7.9 MG/DL 7.5 MG/DL (8.5-10.1) (8.5-10.1) (8.5-10.1) Total Bilirubin 3.3 MG/DL 2.3 MG/DL 2.1 MG/DL (0.2-1.0) (0.2-1.0) (0.2-1.0) Direct Bilirubin 1.3 MG/DL (0.0-0.2) Indirect Bilirubin 2.0 MG/DL (0.0-0.8) Aspartate Amino Transf 59 U/L (15-37) 58 U/L (15-37) 46 U/L (15-37) (AST/SGOT) Ammonia 52 MCMOL/L 52 MCMOL/L (11-32) (11-32) Albumin 2.4 GM/DL 2.3 GM/DL 2.0 GM/DL (3.4-5.0) (3.4-5.0) (3.4-5.0) Random Glucose 111 MG/DL (74-106) Total Protein 6.2 GM/DL 5.5 GM/DL (6.4-8.2) (6.4-8.2) Monocytes (%) (Auto) 11.8 % (0.0-8.0) Eosinophils (%) (Auto) 6.1 % (0.0-4.0) Test 01/23/17 15:44 Hemoglobin 8.7 GM/DL (13.0-17.0) Imaging Last Impressions Abdomen Ultrasound 01/21/17 0000 Signed Impressions: Service Date/Time: Saturday, January 21, 2017 11:22 - CONCLUSION: 1. Probable liver cirrhosis. Mild ascites. 2. Gallbladder sludge with some gallbladder wall thickening and pericholecystic fluid which can be seen with liver disease and ascites. Common bile duct measures 6 mm. Js Carrnaza MD Head CT 01/18/172112 Signed Impressions: Service Date/Time: Wednesday, January 18, 2017 21:53 - CONCLUSION: Negative noncontrast CT. Rio Byrd MD Chest X-Ray 01/18/172112 Signed Impressions: Service Date/Time: Wednesday, January 18, 2017 21:31 - CONCLUSION: No acute disease. Rio Byrd MD PE at Discharge GENERAL: Chronically ill-appearing male in no acute distress. CARDIOVASCULAR: Normal rate and regular rhythm without murmurs, gallops, or rubs. RESPIRATORY: Good respiratory efforts. Breath sounds equal and clear to auscultation bilaterally. GASTROINTESTINAL: Abdomen soft, non-tender, mild distention. Normal active bowel sounds. Umbilical hernia present. MUSCULOSKELETAL: Extremities without cyanosis, or edema. SKIN: RLE dime size wound appear to be healing. NEURO: Awake and alert. Moves all ext x4 PSYCH: Calm Pt update on day of discharge patient had PT and he was cleared to go to home. Hemoblogin was recheck and it improved. Hospital Course 66-year-old male with Acute hepatic encephalopathy: -patient treated with on lactulose QID and Rifaximan - Gi consulted. - did well with treatment and he was back to baseline. GI bleeding: Hemoccult positive. GI following consulted. patient had EGD which showed reflux esophagitis, gastropathy, antral and duodenal ulcers He was put on PPI. Avoid NSAIDS -hemoglobin stabilized. Acute renal failure: -patient given IVF and diuretic held. renal function improved. -spironolactone restarted on discharged. Acute on chronic anemia: s/p 2 units transfusion of PRBC on 01/19/17 - Hemoglobin stabilized. Cirrhosis The pt has a history of HCV s/p treatment. He has a history of GIB. - follow LFTs. - continue PPI. - hold Aldactone. -Continue lactulose and rifaximin -once ARF resolved spironolactone restarted. Right lower extremity wound: Present on admission. Continue wound care Pt Condition on Discharge: Stable Discharge Disposition: Discharge Home Discharge Time: > 30 minutes Discharge Instructions DIET: Follow Instructions for: Heart Healthy Diet Activities you can perform: Regular-No Restrictions Follow up Referrals: Gastroenterology - 2 Weeks PCP Follow-up - 1 Week New Medications: Pantoprazole (Protonix) 40 Mg Tab 40 MG PO DAILY ulcer #30 Ref 0 TAB Rifaximin (Xifaxan) 550 Mg Tab 550 MG PO BID liver disease #60 Ref 0 TAB Spironolactone (Aldactone) 50 Mg Tab 50 MG PO BID@09,18 liver disease #60 Ref 0 TAB ([Lactulose Liq]) 30 ML SYRP 30 ML PO QID liver disease Days 30 Ref 0 ML Discontinued Medications: Lactulose Liq (Lactulose Liq) 10 Gm/15 Ml Soln 30 ML PO BID PRN CIRRHOSIS Ref 0 ML Spironolactone (Spironolactone) 100 Mg Tab 100 MG PO DAILY #30 Ref 0 TAB Tramadol (Tramadol) 50 Mg Tab 50 MG PO Q6H PRN PAIN #15 Ref 0 TAB Angie Marquez MD January 23, 2017 17:21
--- NOTE | 2017-01-23 17:21 | HHI.DCPOC ---
Discharge Care Plan Diagnosis: (1) GI bleed (2) Cirrhosis (3) Acute hepatic encephalopathy (4) Symptomatic anemia Goals to Promote Your Health * To prevent worsening of your condition and complications * To maintain your health at the optimal level Directions to Meet Your Goals Take your medications as prescribed Follow your dietary instruction Follow activity as directed Keep your appointments as scheduled Take your immunizations and boosters as scheduled If your symptoms worsen call your PCP, if no PCP go to Urgent Care Center or Emergency Room Smoking is Dangerous to Your Health. Avoid second hand smoke Call the 24-hour hour crisis hotline for domestic abuse at Angie Marquez MD January 23, 2017 17:21
[2017-01-23] MEDS ORDERED: SPIRONOLACTONE 50 MG TAB PO SCH (18:00)
== END 2017-01-23 18:29 | disposition home or self-care (01) | DRG 682 ==
LOC: NEPC 20:33 → NEDA 22:26 → HOCA 01-19 02:25
PROVIDERS: ADMIT Family Medicine; ATTEND Family Medicine
PROC: 30233N1 Transfusion of Nonautologous Red Blood Cells into Peripheral Vein, Percutaneous Approach (ICD-10-PCS; 2017-01-19)
PROC: 0DB68ZX Excision of Stomach, Via Natural or Artificial Opening Endoscopic, Diagnostic (ICD-10-PCS; principal; 2017-01-21 10:00)
DX: N17.9 Acute kidney failure, unspecified (principal); K72.00 Acute and subacute hepatic failure without coma; E72.20 Disorder of urea cycle metabolism, unspecified; I85.00 Esophageal varices without bleeding; K26.9 Duodenal ulcer, unspecified as acute or chronic, without hemorrhage or perforation; D69.6 Thrombocytopenia, unspecified; R18.8 Other ascites; K76.6 Portal hypertension; K92.2 Gastrointestinal hemorrhage, unspecified; K74.60 Unspecified cirrhosis of liver; D64.9 Anemia, unspecified; K25.9 Gastric ulcer, unspecified as acute or chronic, without hemorrhage or perforation; K21.0 Gastro-esophageal reflux disease with esophagitis; K31.89 Other diseases of stomach and duodenum; I10 Essential (primary) hypertension; E86.0 Dehydration; D73.1 Hypersplenism; K59.00 Constipation, unspecified; S81.801A Unspecified open wound, right lower leg, initial encounter; K42.9 Umbilical hernia without obstruction or gangrene; H91.90 Unspecified hearing loss, unspecified ear; Z86.19 Personal history of other infectious and parasitic diseases
CPT/HCPCS: 36430; 70450; 71010; 76700; 80048; 80053; 80076; 81001; 82105; 82140; 82272; 82550; 82948; 84484; 85018; 85025; 85027; 85610; 85730; 86850; 86900; 86901; 86920; 87040; 88305; 88312; 93005; 96360; J3480; J7030; J7050; P9016

== ENCOUNTER 2017-01-25 17:26 | Emergency (ER) | payer MEDICARE, OTHER ==
[~2017-01-25] VITALS: Ht 167.6 cm; Wt 75.0 kg
[~2017-01-25 17:26] MED LIST changes: +ALDA50TA2 PO; -COLA100C3 PO; +Lactulose Liq PO; -PANT40TA3 PO; +PROT40TA PO; -SPIR100T PO; -TRAM50TA PO; +XIFA550T4 PO
[2017-01-25 17:28] VITALS: BP 182/80; PULSE 81; RESP 15; TEMP 98.2; O2SAT 99
--- NOTE | 2017-01-25 17:41 | PD ---
Physical Exam Date Seen by Provider: January 25, 2017 Time Seen by Provider: 17:39 Narrative 66 yo male here for evaluation of high calcium level. patient goes to the [facility] and was told his calcium was 7.7. He has some lightheadeness. Has some SOB. Was seen here a week ago for alteration. No chest pain. No other medical issues today. Vitals sign stable. Patient awaiting bed placement. Data Data Last Documented VS Vital Signs Date Time Temp Pulse Resp B/P Pulse Ox O2 Delivery O2 Flow Rate FiO2 01/25/17 17:28 98.2 81 15 182/80 99 MDM Medical Record Reviewed: Yes Supervised Visit with LEILA: Jason Huntley January 25, 2017 17:41
--- NOTE | 2017-01-25 18:57 | PD ---
HPI . Abnormal labs Chief Complaint: Abnormal Results Time Seen by Provider: 18:10 Travel History International Travel<30 days: No Contact w/Intl Traveler<30days: No Traveled to known affect area: No History of Present Illness HPI The patient presents here as instructed by the [place] clinic for abnormal labs. He believes that it is his calcium. The patient states that he feels a little fatigued and a little short of breath. Otherwise, he does not have any physical complaints today. The patient was just discharged from the hospital on 01/23 because of hepatic encephalopathy. He also had anemia and Hemoccult positive stools. A subsequent EGD showed esophagitis, portal hypertension in both an antral and duodenal ulcer. The patient has cirrhosis of the liver secondary to hepatitis C. He was told that he would be referred for possible liver transplant as an outpatient. He is curious to learn more about this. PFSH Past Medical History Anemia: Yes Asthma: No Heart Rhythm Problems: No Cancer: No Cardiovascular Problems: Yes High Cholesterol: No Chest Pain: No Congestive Heart Failure: No COPD: No Diminished Hearing: Yes Endocrine: No Gastrointestinal Disorders: Yes GERD: Yes Genitourinary: Yes Hepatitis: Yes (HEPATITIS C) Hiatal Hernia: Yes Hypertension: Yes (HISTORY OF ) Immune Disorder: No Implanted Vascular Access Dvce: No Kidney Stones: No Musculoskeletal: Yes (left clavical & left LE fxs) Neurologic: No Psychiatric: No Reproductive: No Respiratory: Yes Renal Failure: No Sleep Apnea: No Ulcer: No Past Surgical History Eye Surgery: Yes (bilateral cataracts removed) Other Surgery: Yes (endoscopy with biopsy) Social History Alcohol Use: No Tobacco Use: No Substance Use: No Allergies-Medications (Allergen,Severity, Reaction): Coded Allergies: No Known Allergies (Unverified , 01/18/17) Reported Meds & Prescriptions Reported Meds & Active Scripts Active Aldactone (Spironolactone) 50 Mg Tab 50 Mg PO BID@ Xifaxan (Rifaximin) 550 Mg Tab 550 Mg PO BID Protonix (Pantoprazole Sodium) 40 Mg Tab 40 Mg PO DAILY [Lactulose Liq] 30 ML Syrp 30 Ml PO QID 30 Days Review of Systems Except as stated in HPI: all other systems reviewed are Neg General / Constitutional: Positive: Other Respiratory: Positive: Shortness of Breath Physical Exam Narrative GENERAL: Awake and alert and in no acute distress. SKIN: Warm and dry. No jaundice. HEAD: Atraumatic. Normocephalic. EYES: Pupils equal and round. Sclera are anicteric. NECK: Trachea midline. CARDIOVASCULAR: Regular rate and rhythm. RESPIRATORY: No accessory muscle use. ABDOMEN: Protuberant. MUSCULOSKELETAL: No obvious deformities. No edema. NEUROLOGICAL: Awake and alert. No obvious cranial nerve deficits. Motor grossly within normal limits. Normal speech. PSYCHIATRIC: Appropriate mood and affect; insight and judgment normal. Data Data Last Documented VS Vital Signs Date Time Temp Pulse Resp B/P Pulse Ox O2 Delivery O2 Flow Rate FiO2 01/25/17 18:13 95 01/25/17 17:28 98.2 81 15 182/80 Orders Basic Metabolic Panel (Bmp) (01/25/17 18:10) Magnesium (Mg) (01/25/17 18:10) Complete Blood Count With Diff (01/25/17 18:28) Hepatic Functional Panel (01/25/17 18:28) Ammonia (01/25/17 18:28) Labs Laboratory Tests Test 01/25/17 18:30 White Blood Count 8.3 TH/MM3 Red Blood Count 2.82 MIL/MM3 Hemoglobin 8.7 GM/DL Hematocrit 26.0 % Mean Corpuscular Volume 92.4 FL Mean Corpuscular Hemoglobin 30.9 PG Mean Corpuscular Hemoglobin 33.4 % Concent Red Cell Distribution Width 20.2 % Platelet Count 153 TH/MM3 Mean Platelet Volume 8.3 FL Neutrophils (%) (Auto) 54.1 % Lymphocytes (%) (Auto) 26.7 % Monocytes (%) (Auto) 13.5 % Eosinophils (%) (Auto) 4.9 % Basophils (%) (Auto) 0.8 % Neutrophils # (Auto) 4.5 TH/MM3 Lymphocytes # (Auto) 2.2 TH/MM3 Monocytes # (Auto) 1.1 TH/MM3 Eosinophils # (Auto) 0.4 TH/MM3 Basophils # (Auto) 0.1 TH/MM3 CBC Comment DIFF FINAL Differential Comment Sodium Level 137 MEQ/L Potassium Level 3.9 MEQ/L Chloride Level 109 MEQ/L Carbon Dioxide Level 19.4 MEQ/L Anion Gap 9 MEQ/L Blood Urea Nitrogen 17 MG/DL Creatinine 1.11 MG/DL Estimat Glomerular Filtration 66 ML/MIN Rate Random Glucose 111 MG/DL Calcium Level 8.2 MG/DL Magnesium Level 1.9 MG/DL Total Bilirubin 1.7 MG/DL Direct Bilirubin 0.9 MG/DL Indirect Bilirubin 0.8 MG/DL Aspartate Amino Transf 50 U/L (AST/SGOT) Alanine Aminotransferase 31 U/L (ALT/SGPT) Alkaline Phosphatase 112 U/L Ammonia 30 MCMOL/L Total Protein 6.6 GM/DL Albumin 2.6 GM/DL MDM Medical Decision Making Medical Screen Exam Complete: Yes Emergency Medical Condition: Yes Medical Record Reviewed: Yes (patient was admitted here from [facility] for acute encephalopathy. Initial ammonia level was 81. Discharge ammonia level was 52. The patient also had anemia. He was evaluated by GI. He received 2 units of blood. His discharge hemoglobin was 8.7.) Differential Diagnosis Differential diagnosis of weakness includes but is not limited to infection, CVA , electrolyte disturbance, renal failure, hypoglycemia, UTI, ACS, acute blood loss Narrative Course The patient presents to us today at the urging of the [place] clinic for abnormal labs. CBC & BMP Diagram 01/25/17 18:30 Calcium is 8.2. Total bili 1.7, AST 50, ALT 31, alkaline phosphatase 112, ammonia 30 All of these lab values are improved since his discharge. Diagnosis Primary Impression: Cirrhosis Qualified Code: K74.60 - Cirrhosis of liver with ascites, unspecified hepatic cirrhosis type Patient Instructions: Cirrhosis (DC), General Instructions Disposition: 01 DISCHARGE HOME Condition: Stable Bhavna Menchaca MD January 25, 2017 18:57
[2017-01-25 19:07] LABS: AUTOMATED NEUTROPHIL # 4.5 TH/MM3 (1.8-7.7); BASOPHIL # 0.1 TH/MM3 (0-0.2); BASOPHIL % 0.8 % (0.0-2.0); EOSINOPHIL # 0.4 TH/MM3 (0-0.4); EOSINOPHIL % 4.9 % (0.0-4.0); HEMO FLAGS DIFF FINAL; LYMPH % 26.7 % (9.0-44.0); LYMPHOCYTE # 2.2 TH/MM3 (1.0-4.8); MEAN CELL VOLUME 92.4 FL (80.0-100.0); MEAN CORPUSCULAR HEMOGLOBIN 30.9 PG (27.0-34.0); MEAN CORPUSCULAR HGB CONC 33.4 % (32.0-36.0); MONO % 13.5 % (0.0-8.0); NEUT % 54.1 % (16.0-70.0); PLATELET COUNT 153 TH/MM3 (150-450); RED BLOOD COUNT 2.82 MIL/MM3 (4.50-5.90); RED CELL DISTRIBUTION WIDTH 20.2 % (11.6-17.2); WHITE BLOOD COUNT 8.3 TH/MM3 (4.0-11.0)
[2017-01-25 19:09] LABS: BICARBONATE 19.4 MEQ/L (21.0-32.0); MAGNESIUM 1.9 MG/DL (1.5-2.5); POTASSIUM 3.9 MEQ/L (3.5-5.1)
[2017-01-25 19:36] LABS: INDIRECT BILIRUBIN 0.8 MG/DL (0.0-0.8); TOTAL BILIRUBIN ADULT 1.7 MG/DL (0.2-1.0)
== END 2017-01-25 19:58 | disposition home or self-care (01) ==
LOC: NEPD 17:26
DX: K74.60 Unspecified cirrhosis of liver (principal); R53.83 Other fatigue; R06.02 Shortness of breath; I10 Essential (primary) hypertension; H91.90 Unspecified hearing loss, unspecified ear; Z87.19 Personal history of other diseases of the digestive system; Z86.2 Personal history of diseases of the blood and blood-forming organs and certain disorders involving the immune mechanism; Z86.79 Personal history of other diseases of the circulatory system; Z87.39 Personal history of other diseases of the musculoskeletal system and connective tissue; Z87.09 Personal history of other diseases of the respiratory system
CPT/HCPCS: 80048; 80076; 82140; 83735; 85025; 99283

== ENCOUNTER 2017-02-26 11:51 | Inpatient (IN) | payer OTHER, MEDICARE ==
[~2017-02-26] VITALS: Ht 170.2 cm; Wt 66.4 kg
[2017-02-26 11:55] VITALS: BP 153/70; PULSE 90; RESP 20; TEMP 98.3; O2SAT 100
[2017-02-26 12:09] VITALS: RESP 18; O2SAT 100
[2017-02-26 12:21] LABS: AUTOMATED NEUTROPHIL # 4.6 TH/MM3 (1.8-7.7); BASOPHIL % 0.3 % (0.0-2.0); EOSINOPHIL # 0.1 TH/MM3 (0-0.4); EOSINOPHIL % 1.6 % (0.0-4.0); HEMATOCRIT 27.9 % (39.0-51.0); HEMO FLAGS DIFF FINAL; LYMPH % 21.9 % (9.0-44.0); LYMPHOCYTE # 1.5 TH/MM3 (1.0-4.8); MEAN CELL VOLUME 88.4 FL (80.0-100.0); MEAN CORPUSCULAR HEMOGLOBIN 30.3 PG (27.0-34.0); MEAN CORPUSCULAR HGB CONC 34.3 % (32.0-36.0); MONO % 11.2 % (0.0-8.0); PLATELET COUNT 167 TH/MM3 (150-450); RED BLOOD COUNT 3.16 MIL/MM3 (4.50-5.90); RED CELL DISTRIBUTION WIDTH 17.4 % (11.6-17.2)
--- NOTE | 2017-02-26 12:29 | PD ---
HPI Chief Complaint: Altered Mental Status Time Seen by Provider: 12:26 Travel History International Travel<30 days: No Contact w/Intl Traveler<30days: No Traveled to known affect area: No History of Present Illness HPI 66-year-old male that presents to the ED for evaluation of altered mental status. Patient has a history of cirrhosis and hepatic encephalopathy in the past with elevated ammonia levels. Patient has cirrhosis secondary to hep C. [facility] Patient asked to follow-up with them last week and was told that he should be okay and not have any more episodes of this. Per and patient his been acting more lethargic. Per he's been doing nonsensical things appears to be more confused. He is compliant with his medications. He denies any fevers chills or sweats. No chest pain. No shortness of breath. No cough or runny nose. No congestion. No bowel movement issues. No urinary issues. No blood on stool or dark stools. No pain of any kind. Patient does have a chronic wound to his right leg. PFSH Past Medical History Anemia: Yes Asthma: No Heart Rhythm Problems: No Cancer: No Cardiovascular Problems: Yes (htn) High Cholesterol: No Chest Pain: No Congestive Heart Failure: No Cirrhosis: Yes COPD: No Diminished Hearing: Yes Endocrine: No Gastrointestinal Disorders: Yes GERD: Yes Genitourinary: Yes Hepatitis: Yes (HEPATITIS C) Hiatal Hernia: Yes Hypertension: Yes (HISTORY OF ) Immune Disorder: No Implanted Vascular Access Dvce: No Kidney Stones: No Musculoskeletal: Yes (left clavical & left LE fxs) Neurologic: No Psychiatric: No Reproductive: No Respiratory: Yes Renal Failure: No Sleep Apnea: No Ulcer: No Tetanus Vaccination: > 5 Years Influenza Vaccination: No Past Surgical History Eye Surgery: Yes (bilateral cataracts removed) Other Surgery: Yes (endoscopy with biopsy) Social History Alcohol Use: No Tobacco Use: No (quit) Substance Use: No (pt denies) Allergies-Medications (Allergen,Severity, Reaction): Coded Allergies: No Known Allergies (Unverified , 02/26/17) Reported Meds & Prescriptions Reported Meds & Active Scripts Active Aldactone (Spironolactone) 50 Mg Tab 50 Mg PO BID@ Xifaxan (Rifaximin) 550 Mg Tab 550 Mg PO BID Protonix (Pantoprazole Sodium) 40 Mg Tab 40 Mg PO DAILY [Lactulose Liq] 30 ML Syrp 30 Ml PO QID 30 Days Review of Systems Except as stated in HPI: all other systems reviewed are Neg Physical Exam Narrative GENERAL: SKIN: Warm and dry. HEAD: Atraumatic. Normocephalic. EYES: Pupils equal and round. No scleral icterus. No injection or drainage. ENT: No nasal bleeding or discharge. Mucous membranes pink and moist. Tongue is midline. No uvula deviation. NECK: Trachea midline. No JVD. CARDIOVASCULAR: Regular rate and rhythm. No murmurs, S3, S4. RESPIRATORY: No accessory muscle use. Clear to auscultation. Breath sounds equal bilaterally. GASTROINTESTINAL: Abdomen soft, non-tender, nondistended. Hepatic and splenic margins not palpable. MUSCULOSKELETAL: Extremities without clubbing, cyanosis, or edema. No obvious deformities. Full range of motion of the upper and lower extremities bilaterally. 2+ pulses bilaterally. NEUROLOGICAL: Awake and alert. No obvious cranial nerve deficits. Motor grossly within normal limits. Five out of 5 muscle strength in the arms and legs. Normal speech. PSYCHIATRIC: Appropriate mood and affect; insight and judgment normal. Data Data Last Documented VS Vital Signs Date Time Temp Pulse Resp B/P Pulse Ox O2 Delivery O2 Flow Rate FiO2 02/26/17 12:09 18 100 Room Air 02/26/17 12:03 89 02/26/17 11:55 98.3 153/70 Orders Complete Blood Count With Diff (02/26/17 12:01) Comprehensive Metabolic Panel (02/26/17 12:01) Prothrombin Time / Inr (Pt) (02/26/17 12:01) Act Partial Throm Time (Ptt) (02/26/17 12:01) Urinalysis - C+S If Indicated (02/26/17 12:01) Magnesium (Mg) (02/26/17 12:01) Ammonia (02/26/17 12:01) Iv Access Insert/Monitor (02/26/17 12:01) Ecg Monitoring (02/26/17 12:01) Oximetry (02/26/17 12:01) Alcohol (Ethanol) (02/26/17 12:01) Lactulose Liq (Lactulose Liq) (02/26/17 12:45) Sodium Chlor 0.9% 1000 Ml Inj (Ns 1000 M (02/26/17 12:45) Admit Order (Ed Use Only) (02/26/17 12:57) Labs Laboratory Tests Test 02/26/17 12:00 White Blood Count 7.0 TH/MM3 Red Blood Count 3.16 MIL/MM3 Hemoglobin 9.6 GM/DL Hematocrit 27.9 % Mean Corpuscular Volume 88.4 FL Mean Corpuscular Hemoglobin 30.3 PG Mean Corpuscular Hemoglobin 34.3 % Concent Red Cell Distribution Width 17.4 % Platelet Count 167 TH/MM3 Mean Platelet Volume 7.7 FL Neutrophils (%) (Auto) 65.0 % Lymphocytes (%) (Auto) 21.9 % Monocytes (%) (Auto) 11.2 % Eosinophils (%) (Auto) 1.6 % Basophils (%) (Auto) 0.3 % Neutrophils # (Auto) 4.6 TH/MM3 Lymphocytes # (Auto) 1.5 TH/MM3 Monocytes # (Auto) 0.8 TH/MM3 Eosinophils # (Auto) 0.1 TH/MM3 Basophils # (Auto) 0.0 TH/MM3 CBC Comment DIFF FINAL Differential Comment Prothrombin Time 14.3 SEC Prothromb Time International 1.3 RATIO Ratio Activated Partial 29.4 SEC Thromboplast Time Sodium Level 137 MEQ/L Potassium Level 3.7 MEQ/L Chloride Level 107 MEQ/L Carbon Dioxide Level 21.9 MEQ/L Anion Gap 8 MEQ/L Blood Urea Nitrogen 22 MG/DL Creatinine 1.44 MG/DL Estimat Glomerular Filtration 49 ML/MIN Rate Random Glucose 137 MG/DL Calcium Level 8.8 MG/DL Magnesium Level 1.9 MG/DL Total Bilirubin 2.6 MG/DL Aspartate Amino Transf 50 U/L (AST/SGOT) Alanine Aminotransferase 31 U/L (ALT/SGPT) Alkaline Phosphatase 109 U/L Ammonia 71 MCMOL/L Total Protein 8.1 GM/DL Albumin 3.0 GM/DL Ethyl Alcohol Level LESS THAN 3 MG/DL MDM Medical Decision Making Medical Screen Exam Complete: Yes Emergency Medical Condition: Yes Medical Record Reviewed: Yes Interpretation(s) CBC & BMP Diagram 02/26/17 12:00 ammonia is 81. LFTS WNL lipase WNL Differential Diagnosis Encephalopathy versus hepatic encephalopathy versus cirrhosis versus altered mental status versus dehydration versus anemia Narrative Course 66-year-old male that presents to the ED for evaluation of altered mental status. Patient was properly examined and was found to have signs and symptoms concerning for hepatic encephalopathy. Patient has history of this in the past. Labs were ordered. Labs showed elevated ammonia especially compared with her last value here and january 25 which was 30. Patient and report compliance with lactulose. Because of the recent alteration and patient's symptoms at the recommend admission. My attending Dr. Hendrix was made aware of all findings as well as laboratory and agrees with admission. Case discussed with residents who agreed admission to Dr. Singh. Diagnosis Primary Impression: Acute hepatic encephalopathy Additional Impression: Cirrhosis Qualified Code: K74.60 - Cirrhosis of liver without ascites, unspecified hepatic cirrhosis type Admitting Information Admitting Physician Requests: Jason Fernandes Feb 26, 2017 12:29
[2017-02-26 12:31] LABS: APTT (PATIENT) 29.4 SEC (24.3-30.1); INTERNATIONAL NORMALIZED RATIO 1.3 RATIO; PROTHROMBIN TIME - PATIENT 14.3 SEC (9.8-11.6)
[2017-02-26 12:42] LABS: ANION GAP 8 MEQ/L (5-15); AST (GOT) 50 U/L (15-37); BICARBONATE 21.9 MEQ/L (21.0-32.0); BLOOD UREA NITROGEN 22 MG/DL (7-18); CHLORIDE 107 MEQ/L (98-107); GLOMERULAR FILTRATION RATE 49 ML/MIN (>89); MAGNESIUM 1.9 MG/DL (1.5-2.5); POTASSIUM 3.7 MEQ/L (3.5-5.1); SODIUM (NA) 137 MEQ/L (136-145)
[2017-02-26] MEDS ORDERED: SODIUM CHLOR 0.9% 1000 ML INJ 1,000 ML IV SCH (12:45)
[2017-02-26] MEDS ORDERED: LACTULOSE SYRUP 20 GM/30 ML CUP PO ONE (12:45)
[2017-02-26 12:51] LABS: ALKALINE PHOSPHATASE 109 U/L (45-117); ALT (GPT) 31 U/L (12-78); TOTAL BILIRUBIN ADULT 2.6 MG/DL (0.2-1.0)
--- NOTE | 2017-02-26 13:02 | HHI.HP ---
[facility] Service Family Medicine Primary Care Physician Maximiliano [facility] Admission Diagnosis hepatic encephalopathy, cirrhosis, altered Diagnoses: International Travel<30 Days: No Contact w/Intl Traveler<30days: No Known Affected Area: No History of Present Illness Patient is a 66-year-old man with a h/o cirrhosis and hepatic encephalopathy who presents with altered mental status. Patient presents with his , who provides most of history, and who was the one who got him to come to the hospital. Patient reports that he doesn't feel very well. His reports that he was totally disoriented earlier today. Pt was working on his boat yesterday and was in his normal state of health until last night. He went to bed early at 7:30pm and slept until 10:30am, and then wandered around the house like he's never been there before. Last , 02/17, all blood work was normal. In [place], 02/22, his doctor visit was again reassuring. This happened previously, about a month ago. At that time, it was thought that he was eating too much meat protein. His doctors took him off Ensure in December. Pt had an abscess that was lanced on January 05. He has had a wound vac since January. He does not complain of any pain around his right leg ulcer. (Rio Stovall MD R1) Review of Systems Constitutional: DENIES: Fever, Chills, Change in appetite Endocrine: DENIES: Polydipsia, Polyuria Eyes: DENIES: Vision loss Ears, nose, mouth, throat: COMPLAINS OF: Running Nose, DENIES: Hearing loss ( 10% loss in one ear), Throat pain, Sinus Pain Respiratory: DENIES: Cough, Wheezing, Shortness of breath Cardiovascular: DENIES: Chest pain, Syncope, Dyspnea on Exertion Gastrointestinal: DENIES: Abdominal pain, Black stools, Bloody stools, Constipation, Diarrhea, Nausea, Vomiting Genitourinary: COMPLAINS OF: Dysuria Musculoskeletal: COMPLAINS OF: Back pain, DENIES: Neck pain Integumentary: DENIES: Rash Hematologic/lymphatic: DENIES: Bruising Neurologic: DENIES: Headache Psychiatric: COMPLAINS OF: Confusion, DENIES: Mood changes (Rio Stovall MD R1) Past Family Social History Past Medical History Chronic hepatitis C, S/P Tx with [facility] and cured Liver cirrhosis PUD - f/u scheduled through [place] Chronic anemia Upper GI bleeding Gastritis Diverticulosis Hypersplenism Chronic thrombocytopenia Past Surgical History Bilateral Cataracts - repaired in his 40's Left knee surgery Reported Medications Reported Meds & Active Scripts Active Aldactone (Spironolactone) 50 Mg Tab 50 Mg PO BID@ Xifaxan (Rifaximin) 550 Mg Tab 550 Mg PO BID Protonix (Pantoprazole Sodium) 40 Mg Tab 40 Mg PO DAILY [Lactulose Liq] 30 ML Syrp 30 Ml PO QID 30 Days (Rio Stovall MD R1) Allergies: Coded Allergies: No Known Allergies (Unverified , 02/26/17) Family History Alzheimer's Parkinson's his parents of that. two siblings of cancer, ovarian and throat. Social History Denies smoking and drinking. Pt lives with his . care at [place]. (Rio Stovall MD R1) Physical Exam Vital Signs Vital Signs Date Time Temp Pulse Resp B/P Pulse Ox O2 Delivery O2 Flow Rate FiO2 02/26/17 12:09 18 100 Room Air 02/26/17 12:03 89 18 100 Room Air 02/26/17 11:55 98.3 90 20 153/70 100 Room Air Physical Exam GENERAL: This is a well-nourished, well-developed patient, in no apparent distress. SKIN: No rashes, ecchymoses or lesions. Cool and dry. HEAD: Atraumatic. Normocephalic. EYES: Pupils equal round and reactive. Extraocular motions intact. No scleral icterus. No injection or drainage. ENT: Nose without bleeding, purulent drainage or septal hematoma. Throat without erythema, tonsillar hypertrophy or exudate. Uvula midline. Airway patent. NECK: Trachea midline. No JVD or lymphadenopathy. Supple, nontender, no meningeal signs. CARDIOVASCULAR: Regular rate and rhythm without murmurs, gallops, or rubs. RESPIRATORY: Clear to auscultation. Breath sounds equal bilaterally. No wheezes , rales, or rhonchi. GASTROINTESTINAL: Pt with reducible umbilical hernia with hernia belt over site. Abdomen soft, non-tender, nondistended. No hepato-splenomegaly, or palpable masses. No guarding. MUSCULOSKELETAL: On lateral aspect of RLL, there is a 1.5cm x 1 cm ulcer about 1 cm deep with a surrounding area of erythema 8cm x 8cm. Initially, wound vac in place over ulcer. Dressing changed at bedside. Extremities without clubbing, cyanosis, or edema. No joint tenderness, effusion, or edema noted. No calf tenderness. NEUROLOGICAL: Awake and alert. Pt thinks it is 49. He knows that he is in the hospital in [place]. Cranial nerves II through XII grossly intact. Motor and sensory grossly within normal limits. Five out of 5 muscle strength in all muscle groups. Normal speech. Laboratory Laboratory Tests Test 02/26/17 12:00 White Blood Count 7.0 Red Blood Count 3.16 Hemoglobin 9.6 Hematocrit 27.9 Mean Corpuscular Volume 88.4 Mean Corpuscular Hemoglobin 30.3 Mean Corpuscular Hemoglobin 34.3 Concent Red Cell Distribution Width 17.4 Platelet Count 167 Mean Platelet Volume 7.7 Neutrophils (%) (Auto) 65.0 Lymphocytes (%) (Auto) 21.9 Monocytes (%) (Auto) 11.2 Eosinophils (%) (Auto) 1.6 Basophils (%) (Auto) 0.3 Neutrophils # (Auto) 4.6 Lymphocytes # (Auto) 1.5 Monocytes # (Auto) 0.8 Eosinophils # (Auto) 0.1 Basophils # (Auto) 0.0 CBC Comment DIFF FINAL Differential Comment Prothrombin Time 14.3 Prothromb Time International 1.3 Ratio Activated Partial 29.4 Thromboplast Time Sodium Level 137 Potassium Level 3.7 Chloride Level 107 Carbon Dioxide Level 21.9 Anion Gap 8 Blood Urea Nitrogen 22 Creatinine 1.44 Estimat Glomerular Filtration 49 Rate Random Glucose 137 Calcium Level 8.8 Magnesium Level 1.9 Total Bilirubin 2.6 Aspartate Amino Transf 50 (AST/SGOT) Alanine Aminotransferase 31 (ALT/SGPT) Alkaline Phosphatase 109 Ammonia 71 Total Protein 8.1 Albumin 3.0 Ethyl Alcohol Level LESS THAN 3 (Rio Stovall MD R1) Result Diagram: 02/26/17 1200 02/26/17 1200 Course In the ED, pt had ammonia level, Mg, UA, aPTT, PT/INR, CMP, CBC, NS IV bolus, lactulose po x1. (Rio Stovall MD R1) Assessment and Plan Assessment and Plan Patient is a 66-year-old man with a h/o cirrhosis and hepatic encephalopathy who presents with altered mental status likely secondary to hepatic encephalopathy given his ammonia of 71. We'll admit for GI consult to help find why this patient keeps having hepatic encephalopathy. Code Status Full code Discussed Condition With Patient seen and discussed with Dr. Singh. (Rio Stovall MD R1) Attending Attestation Patient seen and examined. Case reviewed and discussed with the resident team. Agree with plan of care as discussed with me and documented in the resident note. see other H&P as this is a draft (Deisi Singh MD) Problem List: (1) Acute hepatic encephalopathy Status: Acute Plan: Patient is a 66-year-old man with a h/o cirrhosis and hepatic encephalopathy who presents with altered mental status likely secondary to hepatic encephalopathy given his ammonia of 71. We'll admit for GI consult to help find why this patient keeps having hepatic encephalopathy. Consult gastroenterology Regular basic diet Ammonia, BMP, CBC in the morning Random drug screen, blood culture, Hemoccult Gentle fluid hydration Monitor intake and output, measure daily weights Neuro checks Monitor vital signs Continue home medications as below: Lactulose 30 mL by mouth 4 times a day Protonix 40 mg by mouth daily Rifaximin 550 mg by mouth twice a day Spironolactone 50 mg by mouth twice a day (2) Cirrhosis Status: Chronic (3) Leg ulcer Status: Acute Plan: On lateral aspect of RLL, there is a 1.5cm x 1 cm ulcer about 1 cm deep with a surrounding area of erythema 8cm x 8cm. Initially, wound vac in place over ulcer. Dressing changed at bedside. - blood cultures - continue to monitor - keep wound clean; consider wound care consult (4) FEN ppx Status: Acute Plan: Fluids: Gentle hydration with normal saline with potassium A lecture lites: Monitor and replete as necessary Nutrition: Regular basic diet DVT prophylaxis: Lovenox 40 mg subcutaneous every 24 hours GI prophylaxis: Protonix 40 mg by mouth daily (Rio Stovall MD R1) Problem Qualifiers (1) Cirrhosis: Qualified Code: K74.60 - Cirrhosis of liver without ascites, unspecified hepatic cirrhosis type (2) Leg ulcer: Qualified Code: L97.911 - Leg ulcer, right, limited to breakdown of skin Rio Stovall MD R1 Feb 26, 2017 13:02 Deisi Singh MD Feb 27, 2017 15:15
[2017-02-26 13:52] VITALS: BP 173/79; PULSE 80; RESP 17; TEMP 97.8; O2SAT 99
[2017-02-26] MEDS ORDERED: SODIUM CHLORIDE 0.9% FLUSH 10 ML FLUSH IV FLUSH PRN (14:00)
[2017-02-26] MEDS: NS + KCL 20 MEQ INJ 1,000 ML IV SCH (15:04)
[2017-02-26 15:20] VITALS: BP 152/70; PULSE 78; RESP 16; O2SAT 99
[2017-02-26 15:35] VITALS: BP 157/74; PULSE 85; RESP 16; TEMP 97.9; O2SAT 100
[2017-02-26 15:37] LABS: BLOOD, URINE NEG (NEG); COMMENT (UR) CULT NOT INDICATED; CULTURE IF INDICATED CULT NOT INDICATED; GLUCOSE,URINE NEG (NEG); KETONE, URINE NEG (NEG); MUCUS URINE FEW /lpf (OCC); NITRITE,URINE NEG (NEG); PH, URINE 6.5 (5.0-8.5); URINE COLOR YELLOW (YELLW/STRAW)
--- NOTE | 2017-02-26 17:00 | PD.PN.STU ---
Subjective Remarks S: Patient is a 66 year old male who presents for GI consult. He states that he came into the hospital today feeling disoriented since this morning. He denies any abdominal pain, fever, chills, dysphagia or significant water retention. He is currently taking spironolactone, rifaximin, and lactulose and is compliant with them daily. With the lactulose he is still only having 2-3 bowel movements per week as per . His bowel movements are loose generally but denies any black or red color to it. PMH: hepatitis C said to be cured, liver cirrhosis, hepatic encephalopathy, previous upper GI bleed, umbilical hernia, GERD. PSHx: cataracts and left knee surgery FHx: Alzhiemers and parkinsons in parents; 1 sibling had ovarian cancer, and another sibling had throat cancer SHx: quit smoking about 15 years ago. had a previous history of alcohol abuse but quit last year. NKDA Objective Vitals Vital Signs Date Time Temp Pulse Resp B/P Pulse Ox O2 Delivery O2 Flow Rate FiO2 02/26/17 15:20 78 16 152/70 99 Room Air 02/26/17 13:52 97.8 80 17 173/79 99 Room Air 02/26/17 12:09 18 100 Room Air 02/26/17 12:03 89 18 100 Room Air 02/26/17 11:55 98.3 90 20 153/70 100 Room Air O: Gen: WDWN, not in acute distress HEENT: negative Neck: supple, no LAD Heart: RRR, no murmurs Lungs: CTA Abdomen: soft, non tender, non distended. brace was present due to umbical hernia. normal bowel sounds heard. no visible ascites Ext: no edema or cyanosis Neuro: alert and oriented to self, place, and the president, although couldn't think of what year it was. Result Diagram: 02/26/17 1200 02/26/17 1200 Other Results Laboratory Tests Test 02/26/17 02/26/17 12:00 15:00 Red Blood Count 3.16 MIL/MM3 (4.50-5.90) Hemoglobin 9.6 GM/DL (13.0-17.0) Hematocrit 27.9 % (39.0-51.0) Red Cell Distribution Width 17.4 % (11.6-17.2) Monocytes (%) (Auto) 11.2 % (0.0-8.0) Prothrombin Time 14.3 SEC (9.8-11.6) Blood Urea Nitrogen 22 MG/DL (7-18) Creatinine 1.44 MG/DL (0.60-1.30) Estimat Glomerular Filtration 49 ML/MIN (>89) Rate Random Glucose 137 MG/DL (74-106) Total Bilirubin 2.6 MG/DL (0.2-1.0) Aspartate Amino Transf 50 U/L (15-37) (AST/SGOT) Ammonia 71 MCMOL/L (11-32) Albumin 3.0 GM/DL (3.4-5.0) Urine Mucus FEW /lpf (OCC) Medications and IVs Current Medications Medications (Trade) Dose Ordered Sig/Brooke Route Start Time Stop Time Status Last Admin (NS Flush) 2 ml UNSCH PRN IV FLUSH 02/26/17 14:00 (NS Flush) 2 ml BID IV FLUSH 02/26/17 21:00 (Protonix) 40 mg DAILY PO 02/27/17 09:00 (Xifaxan) 550 mg BID PO 02/26/17 21:00 (Aldactone) 50 mg BID@09,18 PO 02/26/17 18:00 Lactulose 30 ml 30 ml QID PO 02/26/17 18:00 (NS + KCl 20 Meq Inj) 1,000 ml @ 75 mls/hr [id number] IV 02/26/17 15:00 02/26/17 15:04 A/P Assessment and Plan A: 1. Altered mental status secondary to hyperammonemia, hepatic encephalopathy 2. liver cirrhosis 3. chronic anemia P: 1. patient seems to be less confused as he stated he was when he came in. ammonia level is 71, total bilirubin is 2.6. 2. continue with supportive care and monitor labs 3. Hgb and Hct are up from last time he was admitted due to a GI bleed. no suspicious of any active bleeding. continue multivitamins containing iron at home. 4. advised that she can increase at home lactulose doses to aim for a bowel movement once a day. GI consult note Patient was seen and examined Case discussed with medical student Agree with above Patient with altered mental state that appears to be resolving Patient does not appear to have any decompensating factors He does have underlying constipation and in spite of the fact that he has lactulose 30 cc 4 times a day he only has 2-3 bowel movements a week Patient and his are advised to increase lactulose so as to attain 2-3 bowel movements a day We'll monitor closely and if all is back to baseline and normal in the morning patient may be discharged from a GI standpoint Patient will need to follow up with his top cleaner Anil Chavez Feb 26, 2017 17:00 Luis Fernando Linder MD Feb 26, 2017 19:14
[2017-02-26] MEDS: LACTULOSE SYRUP 20 GM/30 ML CUP PO SCH ×2 (17:06→21:08)
[2017-02-26] MEDS: SPIRONOLACTONE 50 MG TAB PO SCH (17:06)
[2017-02-26 20:00] VITALS: BP 145/72; PULSE 79; PULSE 83; RESP 20; TEMP 98.9; O2SAT 99
[2017-02-26] MEDS: SODIUM CHLORIDE 0.9% FLUSH 10 ML FLUSH IV FLUSH SCH (21:00)
[2017-02-26] MEDS: RIFAXIMIN 550 MG TAB PO SCH (21:08)
[2017-02-27] VITALS: BP 126/64; PULSE 75; RESP 18; TEMP 98.7; O2SAT 97
[2017-02-27 04:00] VITALS: BP 114/58; PULSE 70; RESP 20; TEMP 98.3; O2SAT 98
[2017-02-27] MEDS: NS + KCL 20 MEQ INJ 1,000 ML IV SCH ×2 (04:20→06:00)
[2017-02-27 06:08] LABS: AMPHETAMINE, URINE NEG (NEG); BARBITURATES, URINE NEG (NEG); COCAINE, URINE NEG (NEG)
[2017-02-27 07:44] VITALS: PULSE 84
[2017-02-27 08:00] VITALS: BP 134/66; PULSE 72; RESP 18; TEMP 97.7; O2SAT 100
[2017-02-27] MEDS: SPIRONOLACTONE 50 MG TAB PO SCH (08:16)
[2017-02-27] MEDS: LACTULOSE SYRUP 20 GM/30 ML CUP PO SCH (08:16)
[2017-02-27] MEDS: RIFAXIMIN 550 MG TAB PO SCH (08:17)
[2017-02-27] MEDS: SODIUM CHLORIDE 0.9% FLUSH 10 ML FLUSH IV FLUSH SCH (08:17)
[2017-02-27 08:26] LABS: AUTOMATED NEUTROPHIL # 3.2 TH/MM3 (1.8-7.7); BASOPHIL % 0.8 % (0.0-2.0); EOSINOPHIL # 0.2 TH/MM3 (0-0.4); EOSINOPHIL % 2.9 % (0.0-4.0); HEMATOCRIT 26.4 % (39.0-51.0); HEMO FLAGS DIFF FINAL; LYMPH % 26.9 % (9.0-44.0); LYMPHOCYTE # 1.4 TH/MM3 (1.0-4.8); MEAN CELL VOLUME 89.7 FL (80.0-100.0); MEAN CORPUSCULAR HEMOGLOBIN 30.2 PG (27.0-34.0); MEAN CORPUSCULAR HGB CONC 33.6 % (32.0-36.0); MONO % 9.1 % (0.0-8.0); NEUT % 60.3 % (16.0-70.0); PLATELET COUNT 139 TH/MM3 (150-450); RED BLOOD COUNT 2.94 MIL/MM3 (4.50-5.90); RED CELL DISTRIBUTION WIDTH 17.3 % (11.6-17.2); WHITE BLOOD COUNT 5.2 TH/MM3 (4.0-11.0)
[2017-02-27 08:34] LABS: INTERNATIONAL NORMALIZED RATIO 1.3 RATIO; PROTHROMBIN TIME - PATIENT 14.3 SEC (9.8-11.6)
[2017-02-27 08:47] LABS: BICARBONATE 20.6 MEQ/L (21.0-32.0); POTASSIUM 3.6 MEQ/L (3.5-5.1)
[2017-02-27] MEDS ORDERED: ENOXAPARIN SODIUM 40 MG/0.4 ML SYRINGE SQ SCH (09:00)
[2017-02-27] MEDS ORDERED: PANTOPRAZOLE SOD 40 MG DELAYED RELEASE TAB PO SCH (09:00)
[2017-02-27] MEDS ORDERED: LACT10SO PO ×2 (10:15→10:25)
--- NOTE | 2017-02-27 10:17 | HHI.DCPOC ---
Discharge Care Plan Diagnosis: (1) Acute hepatic encephalopathy (2) Hepatitis C (3) Cirrhosis Goals to Promote Your Health * To prevent worsening of your condition and complications * To maintain your health at the optimal level Directions to Meet Your Goals Take your medications as prescribed Follow your dietary instruction Follow activity as directed Keep your appointments as scheduled Take your immunizations and boosters as scheduled If your symptoms worsen call your PCP, if no PCP go to Urgent Care Center or Emergency Room Smoking is Dangerous to Your Health. Avoid second hand smoke Call the 24-hour hour crisis hotline for domestic abuse at Tiesha Mora MD R2 Feb 27, 2017 10:16
[2017-02-27 11:44] VITALS: BP 152/67; PULSE 71; RESP 20; TEMP 97.4; O2SAT 100
--- NOTE | 2017-02-27 11:44 | HHI.HP ---
[facility] Service Family Medicine Primary Care Physician Maximiliano [facility] Admission Diagnosis hepatic encephalopathy, cirrhosis, altered Diagnoses: (1) Acute hepatic encephalopathy Diagnosis: Principal (2) Cirrhosis Diagnosis: Principal (3) Leg ulcer Diagnosis: Principal (4) FEN ppx Diagnosis: Principal International Travel<30 Days: No Contact w/Intl Traveler<30days: No Known Affected Area: No History of Present Illness Mr Beckford is a 66-year-old man with a h/o cirrhosis and hepatic encephalopathy from alcohol abuse and Hepatitis C who presented with altered mental status. Patient presented with his , who provided most of history, and who was the one who got him to come to the hospital. Patient reported that he doesn't feel very well. His reported that he was totally disoriented earlier on the day of admission. Pt was working on his boat and was in his normal state of health until the night before admission. He went to bed early at 7:30pm and slept until 10:30am, and then wandered around the house "like he's never been there before" according to his . Last , 02/17, all blood work was normal. In [place], 02/22, his doctor visit was again reassuring. This happened previously, about a month ago. At that time, it was thought that he was eating too much meat protein. His doctors took him off Ensure in December. Pt had an abscess that was lanced on January 05 on his leg. He has had a wound vac since January. He does not complain of any pain around his right leg ulcer. Overnight he was continued on lactulose and an increased dose was recommended by GI. He is 100% back to normal per he and his this am. His thinking is clear. His is very concerned about his diet and what to feed him but he will follow up with the [facility] and see a electronics recycler and will see the wound care nurse tomorrow. Per GI, he should have 2-3 bowel movements per day but he has a long history of constipation and is andrew to have one bowel movement a day. Explained to them that the ammonia was excreted through the stools and that he can increase the lactulose as an outpt to reach the desired effect which will hopefully prevent these episodes. He and his are both ready to go home. Review of Systems Other Constitutional: DENIES: Fever, Chills, Change in appetite Endocrine: DENIES: Polydipsia, Polyuria Eyes: DENIES: Vision loss Ears, nose, mouth, throat: COMPLAINS OF: Running Nose, DENIES: Hearing loss ( 10% loss in one ear), Throat pain, Sinus Pain Respiratory: DENIES: Cough, Wheezing, Shortness of breath Cardiovascular: DENIES: Chest pain, Syncope, Dyspnea on Exertion Gastrointestinal: DENIES: Abdominal pain, Black stools, Bloody stools, Constipation, Diarrhea, Nausea, Vomiting Genitourinary: COMPLAINS OF: Dysuria Musculoskeletal: COMPLAINS OF: Back pain, DENIES: Neck pain Integumentary: DENIES: Rash Hematologic/lymphatic: DENIES: Bruising Neurologic: DENIES: Headache Psychiatric: COMPLAINS OF: Confusion, DENIES: Mood changes Past Family Social History Past Medical History Chronic hepatitis C, S/P Tx with [facility] and cured Liver cirrhosis from alcohol and Hep C PUD - f/u scheduled through [facility] Chronic anemia Upper GI bleeding Gastritis Diverticulosis Hypersplenism Chronic thrombocytopenia Past Surgical History Bilateral Cataracts - repaired in his 40's Left knee surgery Allergies: Coded Allergies: No Known Allergies (Unverified , 02/26/17) Family History Alzheimer's Parkinson's his parents of that. two siblings of cancer, ovarian and throat. Social History Denies smoking and drinking, has been abstinent for a year. Pt lives with his . care at [facility]. Physical Exam Vital Signs Vital Signs Date Time Temp Pulse Resp B/P Pulse Ox O2 Delivery O2 Flow Rate FiO2 02/27/17 08:10 Room Air 02/27/17 08:00 97.7 72 18 134/66 100 02/27/17 07:44 84 02/27/17 04:00 Room Air 02/27/17 04:00 98.3 70 20 114/58 98 02/27/17 00:00 Room Air 02/27/17 00:00 98.7 75 18 126/64 97 02/26/17 20:00 79 02/26/17 20:00 98.9 83 20 145/72 99 02/26/17 20:00 Room Air 02/26/17 15:35 97.9 85 16 157/74 100 02/26/17 15:20 78 16 152/70 99 Room Air 02/26/17 13:52 97.8 80 17 173/79 99 Room Air 02/26/17 12:09 18 100 Room Air 02/26/17 12:03 89 18 100 Room Air 02/26/17 11:55 98.3 90 20 153/70 100 Room Air Physical Exam GENERAL: This is a well-nourished, well-developed patient, confused about the year and time but pleasant and cooperative and oriented to name and place SKIN: No rashes, ecchymoses or lesions. Cool and dry. HEAD: Atraumatic. Normocephalic. changes of increased vascularization on face possibly rosacea EYES: Pupils equal round and reactive. Extraocular motions intact. No scleral icterus. No injection or drainage. ENT: Nose without bleeding, purulent drainage or septal hematoma. Airway patent. NECK: Trachea midline. No JVD or lymphadenopathy. Supple, nontender, no meningeal signs. CARDIOVASCULAR: Regular rate and rhythm without murmurs, gallops, or rubs. RESPIRATORY: Clear to auscultation. Breath sounds equal bilaterally. No wheezes , rales, or rhonchi. GASTROINTESTINAL: Abdomen soft, non-tender, slight distention. No hepato- splenomegaly, or palpable masses. No guarding. MUSCULOSKELETAL: Extremities without clubbing, cyanosis, or edema. No joint tenderness, effusion, or edema noted. No calf tenderness. Negative Homans sign bilaterally. NEUROLOGICAL: Awake and alert but with some confusion as above. Cranial nerves II through XII intact. Motor and sensory grossly within normal limits. Five out of 5 muscle strength in all muscle groups. Normal speech but stuck repeating his date of . Laboratory Laboratory Tests Test 02/26/17 02/26/17 02/27/17 12:00 15:00 08:05 White Blood Count 7.0 5.2 Red Blood Count 3.16 2.94 Hemoglobin 9.6 8.9 Hematocrit 27.9 26.4 Mean Corpuscular Volume 88.4 89.7 Mean Corpuscular Hemoglobin 30.3 30.2 Mean Corpuscular Hemoglobin 34.3 33.6 Concent Red Cell Distribution Width 17.4 17.3 Platelet Count 167 139 Mean Platelet Volume 7.7 7.8 Neutrophils (%) (Auto) 65.0 60.3 Lymphocytes (%) (Auto) 21.9 26.9 Monocytes (%) (Auto) 11.2 9.1 Eosinophils (%) (Auto) 1.6 2.9 Basophils (%) (Auto) 0.3 0.8 Neutrophils # (Auto) 4.6 3.2 Lymphocytes # (Auto) 1.5 1.4 Monocytes # (Auto) 0.8 0.5 Eosinophils # (Auto) 0.1 0.2 Basophils # (Auto) 0.0 0.0 CBC Comment DIFF FINAL DIFF FINAL Differential Comment Prothrombin Time 14.3 14.3 Prothromb Time International 1.3 1.3 Ratio Activated Partial 29.4 Thromboplast Time Sodium Level 137 136 Potassium Level 3.7 3.6 Chloride Level 107 108 Carbon Dioxide Level 21.9 20.6 Anion Gap 8 7 Blood Urea Nitrogen 22 15 Creatinine 1.44 1.08 Estimat Glomerular Filtration 49 68 Rate Random Glucose 137 95 Calcium Level 8.8 8.6 Magnesium Level 1.9 Total Bilirubin 2.6 Aspartate Amino Transf 50 (AST/SGOT) Alanine Aminotransferase 31 (ALT/SGPT) Alkaline Phosphatase 109 Ammonia 71 11 Total Protein 8.1 Albumin 3.0 Ethyl Alcohol Level LESS THAN 3 Urine Color YELLOW Urine Turbidity CLEAR Urine pH 6.5 Urine Specific [place] 1.012 Urine Protein NEG Urine Glucose (UA) NEG Urine Ketones NEG Urine Occult Blood NEG Urine Nitrite NEG Urine Bilirubin NEG Urine Urobilinogen 2.0 Urine Leukocyte Esterase NEG Urine RBC LESS THAN 1 Urine WBC 1 Urine Mucus FEW Microscopic Urinalysis Comment CULT NOT INDICATED Urine Opiates Screen NEG Urine Barbiturates Screen NEG Urine Amphetamines Screen NEG Urine Benzodiazepines Screen NEG Urine Cocaine Screen NEG Urine Cannabinoids Screen NEG Date/Time Procedure Status Source Growth 02/26/17 14:31 Aerobic Blood Culture - Preliminary Resulted Blood Peripheral NO GROWTH IN 1 DAY 02/26/17 14:31 Anaerobic Blood Culture - Preliminary Resulted Blood Peripheral NO GROWTH IN 1 DAY Result Diagram: 02/27/17 0805 02/27/17804 Assessment and Plan Assessment and Plan Patient is a 66-year-old man with a h/o cirrhosis and hepatic encephalopathy who presented with altered mental status likely secondary to hepatic encephalopathy given his ammonia of 71. obtained GI consult to help find why this patient keeps having hepatic encephalopathy despite reported adherence to medicines. He is doing very well and can go home today with his to look out for him Problem List: (1) Acute hepatic encephalopathy Status: Acute Plan: Patient is a 66-year-old man with a h/o cirrhosis and hepatic encephalopathy who presents with altered mental status likely secondary to hepatic encephalopathy given his ammonia of 71. We'll admit for GI consult to help find why this patient keeps having hepatic encephalopathy. Consulted gastroenterology who recommended increasing his lactulose as he is not having enough bowel movements for this medicine to be maximally effective Regular basic diet Ammonia great this am, BMP, CBC in the morning Random drug screen, blood culture, Hemoccult Gentle fluid hydration Monitor intake and output, measure daily weights Neuro checks Monitor vital signs Continue home medications as below: Lactulose 30 mL by mouth 4 times a day, increase to 45 mls QID Protonix 40 mg by mouth daily Rifaximin 550 mg by mouth twice a day Spironolactone 50 mg by mouth twice a day he is "back to normal" today so he and his want to go home and have good follow up (2) Cirrhosis Status: Chronic Plan: stable overall with little or no ascites or edema. follow up per [facility] (3) Leg ulcer Status: Acute Plan: On lateral aspect of RLL, there is a 1.5cm x 1 cm ulcer about 1 cm deep with a surrounding area of erythema 8cm x 8cm. Initially, wound vac in place over ulcer. Dressing changed at bedside. - blood cultures done - continue to monitor - keep wound clean he will see wound care nurse at [facility] tomorrow (4) FEN ppx Status: Acute Plan: Fluids: Gentle hydration with normal saline with potassium electrolytes: Monitor and replete as necessary Nutrition: Regular basic diet DVT prophylaxis: Lovenox 40 mg subcutaneous every 24 hours GI prophylaxis: Protonix 40 mg by mouth daily Problem Qualifiers (1) Cirrhosis: Qualified Code: K74.60 - Cirrhosis of liver without ascites, unspecified hepatic cirrhosis type (2) Leg ulcer: Qualified Code: L97.911 - Leg ulcer, right, limited to breakdown of skin Deisi Singh MD Feb 27, 2017 11:44
== END 2017-02-27 12:50 | disposition home or self-care (01) | DRG 442 ==
LOC: NEPE 11:51 → NEDA 12:59 → OBSVTOIN 14:06 → N04B 15:35
PROVIDERS: ADMIT Family Medicine; ATTEND Family Medicine
DX: K72.00 Acute and subacute hepatic failure without coma (principal); L97.819 Non-pressure chronic ulcer of other part of right lower leg with unspecified severity; D69.6 Thrombocytopenia, unspecified; K74.60 Unspecified cirrhosis of liver; H91.90 Unspecified hearing loss, unspecified ear; K42.9 Umbilical hernia without obstruction or gangrene; Z86.19 Personal history of other infectious and parasitic diseases; Z87.891 Personal history of nicotine dependence
CPT/HCPCS: 80048; 80053; 80307; 81001; 82140; 83735; 85025; 85610; 85730; 87040; J1650; J3480; J7030